=== PATIENT | female | born 1995 | race Caucasian/White ===

== ENCOUNTER 2024-10-03 08:06 | Observation (INO) | payer OTHER, SELFPAY ==
--- NOTE | ~2024-10-03 | US_ITS ---
EXAM EXAMINATION: US OB limited DATE: 10/03/2024 11:58 CDT INDICATION: Cervical length, contractions. 4 para 2. Estimated date of delivery as pe r patient: 11/24/2024 yielding an approximate gestational age of 32 weeks and 4 days. COMPARISON: None TECHNIQUE: Real-time transabdominal obstetric ultrasound. FINDINGS: There is a single intrauterine gestation in vertex presentation. The placenta is anterior, without previa. The cervix measurement ranges from 2.13 cm - 2.37cm in length on the submitted images. cardiac activity and movement is noted with a heart rate of 141 beats per minute. Deepest vertical pocket of amniotic fluid measures 6.05 cm IMPRESSION: Single intrauterine gestation in vertex presentation with cardiac activity identified. Short cervical length, as detailed above. Reviewed, dictated and finalized at location A. IMPRESSION: Single intrauterine gestation in vertex presentation with cardiac activit y identified. Short cervical length, as detailed above.
--- OUTSIDE RECORDS SUMMARY | 2024-10-03 08:18 | XMS_ITS | Clinical Summary ---
Author Organization [facility] Address [address] [place] [address] Care Team Providers Care Concrete Panel Installer Name Role Phone Maura Willis NP Primary Care Provider [phone] Allergies Active Allergy Reactions Criticality Noted Date Comments Promethazine Angioedema High 10/27/2021 Venom-Honey Bee Swelling Medium 04/11/2019 Medications vit [id number] villalta 27mg iron- 800 mcg-250 mg capsule Take by mouth Active FeroSuL 325 mg (65 mg iron) tablet Take 1 tablet (325 mg total) by mouth daily 2 Active benzocaine-ment hoL (DERMOPLAST) 20-0.5 % aerosolIndicati ons:Minor Skin Wound Pain Apply 1 application (1 spray total) topically as needed for other (perianal area for pain) 1 g 1 2 Active Additional Information Patient not taking.Reported on 07/15/2024 ibuprofen (ADVIL,MOTRIN) 600 mg tabletIndicatio ns:Cramps Take 1 tablet (600 mg total) by mouth every 6 (six) hours as needed for pain (pain) 30 tablet 1 2 Active albuterol HFA (PROVENTIL HFA,VENTOLIN HFA,PROAIR HFA) 90 mcg/actuation inhaler Inhale 2 puffs every 6 (six) hours as needed for wheezing 1 each 4 11/05/19 25 Active acetaminophen-c odeine (TYLENOL with CODEINE #3) 300-30 mg per tablet Take 1 tablet by mouth every 6 (six) hours as needed for pain 15 tablet 4 Active chlorhexidine (PERIDEX) 0.12 % solutionIndicat ions:Mouth Infection Prevention Apply 15 mL to the mouth or throat 2 (two) times a day 120 mL 4 Active Active Problems Problem Noted Date Diagnosed Date Atypical chest pain 12/04/2023 Assessment & Plan (12/04/2023 3:26 PM CDT): Cardiac stress test and Holter monitor did not reveal any causative factors. She is being referred to Dr. Gallego, cooperative manager, for more extensive evaluation Palpitations 11/05/2023 Assessment & Plan (12/04/2023 3:23 PM CDT): Holter monitor detected some irregular heartbeats but were less than 1% of the heartbeats in 48 hours. Assessment & Plan (11/05/2023 3:54 PM CDT): Had EKG done in the ER on 11/02/2023 that indicated an incomplete right bundle branch block. We will order a 48 hour Holter monitor and a cardiac stress test. Pneumonia 11/05/2023 Assessment & Plan (11/05/2023 3:55 PM CDT): Complete azithromycin and start Augmentin today. Prednisone taper as discussed. Discussed use of albuterol HFA for p.r.n. shortness of breath. Increase fluids. Can take Tylenol or ibuprofen p.r.n. Shortness of breath 11/05/2023 Assessment & Plan (12/04/2023 3:24 PM CDT): This seems to be more from physical deconditioning than cardiac or respiratory in nature Assessment & Plan (11/05/2023 3:56 PM CDT): Prescribed albuterol HFA for p.r.n. use. She reports this prior to being diagnosed with pneumonia. It may be related to asthma. Low body weight due to inadequate caloric intake 11/05/2023 Assessment & Plan (12/04/2023 3:25 PM CDT): Patient states that she has been trying to increase her intake. Her weight has gone from 68 lb on 11/05/2023 277 lb today Assessment & Plan (11/05/2023 4:04 PM CDT): Patient reports she only consumes about 500 calories a day. She denies any anorexia, she has an adequate appetite, states she just does not like to eat. Nicotine dependence with current use 11/05/2023 Assessment & Plan (12/04/2023 3:25 PM CDT): Counseled on smoking cessation. Patient has cut back considerably and does not want to totally quit at present. We will discuss at next office visit Assessment & Plan (11/05/2023 4:01 PM CDT): Counseled on smoking cessation. She is considering quitting but prefers to do it cold turkey. Spontaneous 03/05/2021 Assessment & Plan (03/05/2021 3:48 PM CDT): Desired , patient reports passage of products of conception Will continue to monitor, discussed with patient that continues portions for relatively,; however given significant weight loss and long duration since last will begin testing FSH and LH, consider referral to Endocrinology for other evaluations of unexplained weight loss Primary insomnia 03/05/2021 Assessment & Plan (03/05/2021 3:49 PM CDT): Patient reports difficulty with staying and falling asleep Will start amitriptyline to mg nightly given patient's low body mass Will continue to evaluate for other causes of insomnia History of Helicobacter pylori infection 021 Overview (12/11/2020): Added automatically from request for surgery [id number] Family history of ischemic h eart disease and other diseases of the circulatory system 11/09/2019 Assessment & Plan (12/04/2023 3:24 PM CDT): This is a consideration with referral to Cardiology for further evaluation Assessment & Plan (11/05/2023 3:55 PM CDT): Have ordered a 48 hour Holter monitor and cardiac stress test. Asthma 11/09/2019 Weight loss 08/03/2010 Overview (08/08/2020): She reports that her peak weight was 85 pounds and this was about 2 years ago. Since that time she lost weight and had vomiting and was diagnosed with H. Pylori. Despite treatment, she reports that her stomach was still irritated and that she was down to 78 pounds for 8 months. Her lowest weight ever was 65 pounds. Plan: Continue weight gain. Continue to monitor. Assessment & Plan (06/26/2021 5:17 PM DIRECTOR TRANSLATION): Not well controlled, patient continues to have difficulty maintaining a gaining weight maternal family has multiple autoimmune disease, mother also has low weight Patient feels generalized muscle weakness as well as people muscles No significant changes in appetite, but has severe acid reflux Will check multiple labs today to look for possible autoimmune are myositis Assessment & Plan (03/05/2021 3:49 PM CDT): Patient weight has been steady at approximately 73 lb for last several months; EGD reviewed, no evidence of H pylori in order malabsorption based on small bowel biopsy Will start testing potential endocrine causes of weight loss or poor weight gain Assessment & Plan (12/11/2020 2:36 PM CDT): Unable to regain weight. [facility]ori at [address] [place] [address] Recently cbc,cmp[,TSH, TTG, stool studiea all neg. No D or clinical/lab indicatoion. Will egd Estimated Date of Delivery Comme nts Yes 11/28/2024 Date entered silke or to episode creation Encounters Date Type Department Care Team Description 08/31/2024 Telephone [facility] [place] [address] [facility] [address] [place] [phone] Liza Barger 08/30/2024 7:05 AM DIRECTOR TRANSLATION - 08/30/2024 9:49 AM DIRECTOR TRANSLATION Emergency [facility] Emergency Department [address] [place] [address] Oli Luo MD Shortness of breath (Primary Dx) Discharge Disposition: Discharge to home or self care 08/30/2024 4:20 AM DIRECTOR TRANSLATION - 08/30/2024 6:51 AM DIRECTOR TRANSLATION Hospital Encounter [address] [address] Arlette Rojas MD Discharge Disposition: Discharge to home or self care 08/30/2024 4:00 AM DIRECTOR TRANSLATION - 08/30/2024 11:59 PM DIRECTOR TRANSLATION Hospital Encounter [facility] Emergency, Room R Discharge Disposition: Discharge to home or self care 08/23/2024 11:29 PM DIRECTOR TRANSLATION - 08/24/2024 3:32 AM DIRECTOR TRANSLATION Hospital Encounter [address] [address] Arlette Rojas MD Discharge Disposition: Discharge to home or self care 08/02/2024 Telephone [facility] Accountable Care Organization [address] [place] [address] Georgia Aguiar MA Unsuccessful Phone Call 1 (AWV SCHEDULING) 07/26/2024 Telephone [facility] Primary Care at [address] [place] [phone] Maura Willis NP Medical Question/Miscellaneo us (Prior auth hospital test) 07/15/2024 12:15 PM DIRECTOR TRANSLATION Office Visit [facility] at [place] [address] [place] [address] Abbi Guerrero NP Dental infection (Primary Dx) 07/13/2024 Telephone [facility] [place] [address] [place] [address] Maria Fernanda Hameed MA 07/13/2024 Telephone [facility] [place] [address] [place] [address] Azucena Rivera MA 07/09/2024 7:53 PM DIRECTOR TRANSLATION - 07/09/2024 11:59 PM DIRECTOR TRANSLATION [place] [address] Vaginal discharge Discharge Disposition: Discharge to home or self care 07/09/2024 7:45 PM DIRECTOR TRANSLATION Office Visit [facility] [place] [address] [place] [address] Janneth Freire, KAMI Vaginal discharge (Primary Dx); Acute vaginitis from Last 3 Months Immunizations Immunization Administration Dates Next Due DTP 1993 DTP / HiB 03/27/1994,1993 DTaP 02/21/1999 HPV, Quadrivalent 08/08/2009 Hep A, Ped Unspecified 08/08/2009 Hep B, Adolescent or Pediatric 03/27/1994,1993,1993 HiB 1993 Influenza, Quadrivalent, Spl it, Preservative Free, Intramuscular 04/13/2021 Influenza, Unspecified 04/14/2023(Deferr ed: Patient Refused),03/05/2021(Deferred: Patient Refused),03/05/2021(Deferred: Patient Refused),07/07/2020(Deferred: Patient Refused),07/07/2020(Deferred: Patient Refused),07/07/2019(Deferred: Patient Refused),07/07/2019(Deferred: Patient Refused),07/07/2019(Deferred: Patient Refused),07/07/2019(Deferred: Patient Refused) MMR 11/26/2021(Deferred: Other - mom immune),02/21/1999,01/01/1996 Meningococcal C Conjugate 08/08/2009 OPV 02/21/1999, 4,1993,10/04 Tdap 10/16/2022,08/08/2009 Varicella 04/13/1999 Surgical History Surgery Date Site/Laterality Comments UPPER GASTROINTESTINAL ENDOSCOPY 07/07/2011 - 07/06/2012 H. Pylori Medical History Medical History Date Comments H. 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 Pylori Sister 1 No Known Problems Sister 2 Relation Name Status Comments Father Alive Maternal Grandmother Alive Mother Alive Sister 1 Alive Sister 2 Alive Social History Tobacco Use Types Packs/Day Years Used Date Smoking Tobacco: Every Day Cigarettes 0.5 11 Smokeless Tobacco: Never Tobacco Cessation:Ready to Q uit: Not Asked; Counseling Given: Not Answered Alcohol Use Standard Drinks/Week Comments Not Currently 0 (1 standard drink = 0.6 oz pur e alcohol) Social Connection and Isolat ion Panel [NHANES] Answer Date Recorded In a typical week, how many times do you talk on the phone with family, friends, or neighbors? More than three times a week 08/30/2024 How often do you get togethe r with friends or relatives? More than three times a week 08/30/2024 How often do you attend [facility] or sabianist services? More than 4 times per year 08/30/2024 Do you belong to any clubs o r organizations such as adventist groups, unions, fraternal or athletic groups, or school groups? No 08/30/2024 How often do you attend meet ings of the clubs or organizations you belong to? Never 08/30/2024 Are you , , di vorced, , never , or living with a partner? Living with partner 08/30/2024 AUDIT-C Answer Date Recorded Q1: How often do you have a drink containing alcohol? Never 08/30/2024 Q2: How many drinks containi ng alcohol do you have on a typical day when you are drinking? Patient does not drink Q3: How often do you have si x or more drinks on one occasion? Never 08/30/2024 Overall Financial Resource Strain (CARDIA) Answe r Date Recorded How hard is it for you to pa y for the very basics like food, housing, medical care, and heating? Somewhat hard 08/30/2024 PHQ-2 Answer Date Recorded PHQ-2 Total Score (If total score is 3 or more points, staff should administer the PHQ-9) 0 08/30/2024 [facility] - Occupational Stress Questionnaire Answer Date Recorded Do you feel stress - tense, restless, nervous, or anxious, or unable to sleep at night because your mind is troubled all the time - these days? Only a little 08/30/2024 Exercise Vital Sign Answer Date Recorde d On average, how many days pe r week do you engage in moderate to strenuous exercise (like a brisk walk)? 6 days 08/30/2024 On average, how many minutes do you engage in exercise at this level? 60 min 08/30/2024 Hunger Vital Sign Answer Date Recorded Within the past 12 months, y ou worried that your food would run out before you got the money to buy more. Sometimes true Within the past 12 months, t he food you bought just didn't last and you didn't have money to get more. Never true PRAPARE - Transportation Answer Date Re corded In the past 12 months, has l ack of transportation kept you from medical appointments or from getting medications? No 08/08 In the past 12 months, has l ack of transportation kept you from meetings, work, or from getting things needed for daily living? No 08/30/2024 Housing Stability Vital Sign Answer Keven e Recorded In the last 12 months, was t here a time when you were not able to pay the mortgage or rent on time? No 08/30/2024 In the past 12 months, how m any times have you moved where you were living? 0 08/30/2024 At any time in the past 12 m [facility], were you homeless or living in a intermediate (including now)? No 08/30/2024 Personal Safety Answer Date Recorded Have you ever been in or are you currently in a harmful physical or emotional relationship or is someone making you feel afraid or unsafe? Denies 08/30/2024 Estimated Date of Delivery Comme nts Yes 11/28/2024 Date entered silke or to episode creation Sex and Gender Information Value Date Recorded Sex Assigned at Not on file Legal Sex Female 7:49 PM DIRECTOR TRANSLATION Gender Identity Not on file Sexual Orientation Not on file Obstetrics History Para Term AB IAB SAB Ectopic Multiple Livin g Live Births 4 2 2 0 1 0 1 0 0 2 2 Date Outcome GA Total Labor Labor/2nd/3rd Weight Sex Type Anes PTL Nena A1 A5 Name Clin SAB 2012 Term 2.353 kg (5 lb 3 oz) F Vag-S pont Epidur al Y Livin g Complications:None Delivery [facility] 2021 Term 38w 4d 2h 43m 2h 09m/0h 24m/0h 10m 2.383 kg (5 lb 4.1 oz) F Vag-S pont Epidur al N Livin g 9 9 YON,G Heydi Coffman MD Complications:None Delivery [facility] ([facility]) Current Summary Episode Dates Number of Fetuses Estimated Date of Delivery 08/23/2024 - Present (10/03/2024) 11/28/2024 (based on Alternate CASE Entry) Dating Summary Based On CASE GA Diff Last Menstrual Period on 02/18/2024 (Exact Date) 11/24/2024 +4d Alternate CASE Entry 11/28/2024 Working Comment:Date entered prior t o episode creation Vitals Pregravid Weight Height TWG (As of 10/03/2024) Pregrav id BMI 152.4 cm (5') Date GA Fund Present FHR Mvmt BP Weight Edema Alb Glu Ket Dil/ Eff/Sta 5 26w2d Inpatient data not displayed here. See encounter summary. 5 27w1d Inpatient data not displayed here. See encounter summary. Last Filed Vital Signs Vital Sign Reading Time Taken Comments Blood Pressure 105/66 08/30/2024 9:00 AM DIRECTOR TRANSLATION Pulse 88 08/30/2024 9:00 AM DIRECTOR TRANSLATION Temperature 36.7 C (98 F) 08/30/2024 7:07 AM DIRECTOR TRANSLATION Respiratory Rate 14 08/30/2024 7:30 AM DIRECTOR TRANSLATION Oxygen Saturation 99% 08/30/2024 9:00 AM DIRECTOR TRANSLATION Inhaled Oxygen Concentration - - Weight 39.5 kg (87 lb) 08/30/2024 7:07 AM DIRECTOR TRANSLATION Height 152.4 cm (5') 08/30/2024 4:34 AM DIRECTOR TRANSLATION Body Mass Index 16.99 08/30/2024 4:34 AM DIRECTOR TRANSLATION Plan of Treatment Health Maintenance Due Date Last Done Comments Hepatitis C Screening 1993 Varicella Vaccines (2 of 2 - 2-dose childhood series) 07/06/1999 04/13/1999 HPV Vaccines (2 - 3-dose series) 09/05/2009 08/08/19 10 Regular Well Visit/Exam 18-64 2011 Pneumococcal vaccine <65 (1 of 2 - PCV) 2012 Cervical Cancer Screening 10/24/2021 10/24/2020 Influenza Vaccine (#1) 2024 04/13/2021 Depression Screening 08/24/2025 08/24/2024, 08/23/2024, 11/05/2023, Additional history exists DTaP/Tdap/Td Vaccine (7 - Td or Tdap) 10/16/2032 10/16/2022, 08/08/2009, 02/21/1999, Additional history exists Hepatitis B Screening Completed 03/27/1994 , 1993, 1993 Procedures Procedure Name Priority Date/Time Associated Diagnosis Comments XR CHEST 1 VIEW ED 08/30/2024 8:48 AM DIRECTOR TRANSLATION ECG 12-LEAD STAT 08/30/2024 7:28 AM DIRECTOR TRANSLATION EGFR STAT 08/30/2024 7:11 AM DIRECTOR TRANSLATION DIFFERENTIAL AUTO STAT 08/30/2024 7:1 1 AM DIRECTOR TRANSLATION TROPONIN T HIGH-SENSITIVITY SERIES (BASELINE, 2HR, 4HR, 6HR) STAT 08/30/2024 7:11 AM DIRECTOR TRANSLATION CBC WITH AUTO DIFFERENTIAL STAT 08/30/2024 7:11 AM DIRECTOR TRANSLATION COMPREHENSIVE METABOLIC PANEL STAT 08/30/2024 7:11 AM DIRECTOR TRANSLATION INFLUENZA A/B, RSV, AND COVID-19 PCR Routine 08/30/2024 5:28 AM DIRECTOR TRANSLATION URINALYSIS AND REFLEX TO MICROSCOPIC AND CULTURE STAT 08/30/2024 5:28 AM DIRECTOR TRANSLATION ECG 12-LEAD Routine 08/24/2024 2:19 AM DIRECTOR TRANSLATION URINALYSIS AND REFLEX TO MICROSCOPIC AND CULTURE Routine 08/23/2024 11:54 PM DIRECTOR TRANSLATION POCT URINALYSIS DIPSTICK Routine 07/09/2024 8:08 PM DIRECTOR TRANSLATION Vaginal discharge VAGINITIS PANEL Routine 07/09/2024 7:53 PM DIRECTOR TRANSLATION Vaginal discharge URINE CULTURE Routine 07/09/2024 7:53 PM DIRECTOR TRANSLATION Vaginal discharge GENITAL FLUID PAP SMEAR, THIN PREP AND HPV Routine 10/24/2020 from Last 3 Months or Most Recently Relevant to Health Maintenance Results * XR Chest 1 Vw Portable (08/30/2024 8:48 AM DIRECTOR TRANSLATION) Anatomical Region Laterality Modality Body, Chest N/A Computed Radiogr aphy 08/30/2024 8:50 AM DIRECTOR TRANSLATION Narrative 08/30/2024 8:50 AM DIRECTOR TRANSLATION EXAM DESCRIPTION: XR CHEST 1 VIEW REASON FOR STUDY: cough Complains of Chest pain and SOB. Placed on monitors. FHR baseline 140 with mod variability, accel 155. Occasionally contraction noted. Po hydration given. Dr elliott notified. Orders received to discharge pt and send to ER. Pt is currently 26 weeks . Pt was shielded during chest xray TECHNIQUE: Single radiographic view(s) of the chest. COMPARISON: Radiograph dated January 22, 2024 FINDINGS: LUNGS: No focal opacity, pleural effusion, or pneumothorax. HEART/MEDIASTINUM: Cardiac silhouette normal in size. Mediastinal and hilar contours appear normal. LINES/TUBES: None. BONES: No acute osseous abnormality. IMPRESSION: No acute cardiopulmonary abnormality. THIS IS AN ELECTRONICALLY VERIFIED FINAL REPORT 08/30/2024 8:50 AM - Electronically signed by Dakota Boyd M.D. JA: SOCORRO Report ID: [id number] Reading Location: [id number] Procedure Note Dakota Boyd MD - 08/30/2024 EXAM DESCRIPTION: XR CHEST 1 VIEW REASON FOR STUDY: cough Complains of Chest pain and SOB. Placed on monitors. FHR baseline 140 withmod variability, accel 155. Occasionally contraction noted. Po hydrationgiven. Dr elliott notified. Orders received to discharge pt and send to ER. Pt is currently 26 weeks . Pt was shielded during chest xray TECHNIQUE: Single radiographic view(s) of the chest. COMPARISON: Radiograph dated January 22, 2024 FINDINGS: LUNGS: No focal opacity, pleural effusion, or pneumothorax. HEART/MEDIASTINUM: Cardiac silhouette normal in size. Mediastinal andhilar contours appear normal. LINES/TUBES: None. BONES: No acute osseous abnormality. IMPRESSION: No acute cardiopulmonary abnormality. THIS IS AN ELECTRONICALLY VERIFIED FINAL REPORT 08/30/2024 8:50 AM - Electronically signed by Dakota Boyd M.D. JA: SOCORRO Report ID: [id number] Reading Location: [id number] Oli Luo MD IMG XR PROCEDURES Final Result * ECG 12 lead (08/30/2024 7:28 AM DIRECTOR TRANSLATION) 08/30/2024 7:28 AM DIRECTOR TRANSLATION Narrative [facility] - 08/30/2024 8:47 AM DIRECTOR TRANSLATION Vent Rate: 84 bpm RR Interval: 711 msec MO Interval: 104 msec QRS Duration: 77 msec QT Interval: 377 msec QTC Interval: 418 msec P-R-T Freedom: 40 - 66 - 45 degrees IMPRESSION: SINUS RHYTHM WITH SHORT MO INTERVAL BORDERLINE ECG Compared to prior EKG heart rate decreased Electronically Signed By: Cisco Mckeon MD [facility] Oli Luo MD ECG ORDERABLES Final Result [facility] * Troponin T high-sensitivity series (baseline, 2hr, 4hr, 6hr) (08/30/2024 7:11 AM DIRECTOR TRANSLATION) Trop T hs <6 <=14 ng/L Comment: Interpretive Data For further hscTnT resources including the diagnostic algorithm and an aid in interpretation, copy and paste this link: https://nrl.testcatalog.org/show/hsTrop Current Interpretive Data last revised 2020. Blood 08/30/2024 7:11 AM DIRECTOR TRANSLATION 08/30/2024 7:19 AM DIRECTOR TRANSLATION Oli Luo MD LAB BLOOD ORDERABLES Final Res ult [facility] [address] [facility] [address] [place], [place] [id number] * eGFR (08/30/2024 7:11 AM DIRECTOR TRANSLATION) Pathologist [facility] eGFR >90 >=60 mL/min/1. 73 m2 Comment: Interpretive Data Reference Interval Normal >/= 90 mL/min/1.73m2 Mildly decreased* 60 - 89 mL/min/1.73m2 Mildly to moderately decreased 45 - 59 mL/min/1.73m2 Moderately to severely decreased 30 - 44 mL/min/1.73m2 Severely decreased 15 - 29 mL/min/1.73m2 Kidney Failure < 15 mL/min/1.73m2 *Relative to young adult level Estimated glomerular filtration rate is determined by the 2020 CKD-EPI equation recommended by the National Kidney Foundation (A Unifying Approach to GFR Estimation: Recommendations of the NKF-ASK Task Force on Reassessing the Inclusion of Race in Diagnosing Kidney Disease, JASN 2020). The CKD-EPI equation should not be used for patients with unstable renal function and has not been validated in children and those over 70. Current interpretive data was last reviewed 2021. Blood 08/30/2024 7:11 AM DIRECTOR TRANSLATION 08/30/2024 7:19 AM DIRECTOR TRANSLATION Oli Luo MD LAB BLOOD ORDERABLES Final Res ult [facility] [address] [facility] [address] [place] [address] * (ABNORMAL) Differential, auto (08/30/2024 7:11 AM DIRECTOR TRANSLATION) Neutrophil abs 8.9(H) 1.5 - 6.5 K/cumm Imm gran abs 0.3(H) 0.0 - 0.1 K/cumm [facility] ([place]) Lymphocyte abs 2.1 0.8 - 3.3 K/cumm [facility] ([place]) Monocyte abs 0.8 0.2 - 0.8 K/cumm [facility] ([place]) Eosinophil abs 0.1 0.0 - 0.5 K/cumm [facility] ([place]) Basophil abs 0.1 0.0 - 0.1 K/cumm [facility] ([place]) Neutrophil pct 72.5 % [facility] ([place]) Comment: Interpretive Data Percent cell count reference ranges are not reported, since discordance with absolute values may lead to misinterpretation of CBC data. Current Interpretive Data was last revised on 2017. Imm gran pct 2.2 % [facility] ([place]) Comment: Interpretive Data Percent cell count reference ranges are not reported, since discordance with absolute values may lead to misinterpretation of CBC data. Current Interpretive Data was last revised on 2017. Lymphocyte pct 17.4 % [facility] ([place] Comment: Interpretive Data Percent cell count reference ranges are not reported, since discordance with absolute values may lead to misinterpretation of CBC data. Current Interpretive Data was last revised on 2017. Monocyte pct 6.8 % [facility] ([place]) Comment: Interpretive Data Percent cell count reference ranges are not reported, since discordance with absolute values may lead to misinterpretation of CBC data. Current Interpretive Data was last revised on 2017. Eosinophil pct 0.7 % [facility] ([place]) Comment: Interpretive Data Percent cell count reference ranges are not reported, since discordance with absolute values may lead to misinterpretation of CBC data. Current Interpretive Data was last revised on 2017. Basophil pct 0.4 % [facility] ([place]) Comment: Interpretive Data Percent cell count reference ranges are not reported, since discordance with absolute values may lead to misinterpretation of CBC data. Current Interpretive Data was last revised on 2017. Blood 08/30/2024 7:11 AM DIRECTOR TRANSLATION 08/30/2024 7:19 AM DIRECTOR TRANSLATION Oli Luo MD LAB BLOOD ORDERABLES Final Res ult [facility] ([place]) 1 [facility] [address] [place] [address] * (ABNORMAL) CBC with auto differential (08/30/2024 7:11 AM DIRECTOR TRANSLATION) WBC 12.2(H) 3.8 - 9.9 K/cumm Hgb 9.7(L) 11.9 - 15.5 g/dL [facility] ([place]) Hct 28.4(L) 35.6 - 45.5 % [facility] ([place]) Plt 242 150 - 400 K/cumm [facility] ([place]) MPV 9.7 9.1 - 12.3 fL [facility] ([place]) RBC 2.97(L) 3.90 - 5.20 M/cumm [facility] ([place]) MCV 95.6 81.3 - 96.4 fL [facility] ([place]) MCH 32.7 27.1 - 33.3 pg [facility] ([place]) MCHC 34.2 32.3 - 35.7 g/dL [facility] ([place]) RDW CV 14.1 11.1 - 14.9 % [facility] ([place]) RDW SD 49.1(H) 35.7 - 48.1 fL [facility] ([place]) NRBC abs 0.00 0.00 - 0.01 K/cumm [facility] ([place]) Blood 08/30/2024 7:11 AM DIRECTOR TRANSLATION 08/30/2024 7:19 AM DIRECTOR TRANSLATION Oli Luo MD LAB BLOOD ORDERABLES Final Res ult Performing Organization Address City/[facility]/ZIP Co de Phone Number [facility] ([place]) 1 [facility] [place] [address] * (ABNORMAL) Comprehensive metabolic panel (08/30/2024 7:11 AM DIRECTOR TRANSLATION) Sodium 135 135 - 145 mmol/L Potassium, pl 3.1(L) 3.3 - 4.9 mmol/L [facility] ([place]) Chloride 103 97 - 110 mmol/L [facility] ([place]) CO2 22 22 - 32 mmol/L [facility] ([place]) Anion gap 10 2 - 15 mmol/L [facility] ([place]) BUN 5(L) 6 - 25 mg/dL [facility] ([place]) Creatinine 0.51(L) 0.60 - 1.10 mg/dL [facility] ([place]) Glucose 97 70 - 199 mg/dL [facility] ([place]) Comment: Interpretive Data Fasting glucose >/= 126 mg/dl is diagnostic for diabetes. Fasting is defined as no caloric intake for at least 8 hours. Fasting glucose between 100 mg/dl to 125 mg/dl is diagnostic of prediabetes. In a patient with classic symptoms of hyperglycemia or hyperglycemic crisis, a random glucose >/= 200 mg/dl is diagnostic for diabetes. In the absence of unequivocal hyperglycemia, results should be confirmed by repeat testing. The classification and Diagnosis of Diabetes Diabetes Care 2021; 46: S19-S40. Current interpretive data was last revised 2022. Calcium 7.9(L) 8.5 - 10.3 mg/dL [facility] ([place]) Bilirubin, total 0.2 0.1 - 1.2 mg/dL [facility] ([place]) Protein, pl 5.9(L) 6.5 - 8.5 g/dL [facility] ([place]) Albumin 2.9(L) 3.5 - 5.0 g/dL [facility] ([place]) Alk phos 125 40 - 130 Units/L [facility] ([place]) ALT 6(L) 7 - 45 Units/L [facility] ([place]) AST 16 10 - 45 Units/L [facility] ([place]) Blood 08/30/2024 7:11 AM DIRECTOR TRANSLATION 08/30/2024 7:19 AM DIRECTOR TRANSLATION Oli Luo MD LAB BLOOD ORDERABLES Final Res ult Performing Organization Address [facility]/ZIP Co de Phone Number [facility] ([place]) 1 [facility] Department [place] [address] * Influenza A/B, RSV, and COVID-19 PCR Nasopharyngeal (08/30/2024 5:28 AM DIRECTOR TRANSLATION) COVID-19 RNA Negative Negative Influenza A RNA Negative Negative [facility] ([place]) Influenza B RNA Negative Negative [facility] ([place]) RSV RNA Negative Negative [facility] ([place]PUBL[place]) Comment: Interpretive data: Testing performed by [facility]. This test is performed using the [employer] Xpert Xpress CoV-2/Flu/RSV plus assay. This is a multiplex, real- time reverse transcriptase PCR assay intended for the qualitative detection of nucleic acid from SARS-CoV-2, influenza A, influenza B, and respiratory syncytial virus. This assay has been cleared by the [place] Food and Drug administration. The performance characteristics have been verified by the [facility]. Results must be considered in the clinical context, and a negative result does not rule out infection. Interpretive Data last revised 2023 Nasopharyngeal 08/30/2024 5: 28 AM DIRECTOR TRANSLATION 08/30/2024 5:35 AM DIRECTOR TRANSLATION Narrative [facility] ([place]PUBL[place]) - 08/30/2024 6:14 AM DIRECTOR TRANSLATION Is the Patient experiencing symptoms consistent with COVID?->Yes Ruperto Elliott MD LAB MICROBIOLOGY - GEN ERAL ORDERABLES Final Result Performing Organization Address [facility]/ZIP Co de Phone Number [place] ([place]) 1 [facility] Department [place] [address] * Urinalysis reflex to microscopic and culture Urine, clean voided (08/30/2024 5:28 AM DIRECTOR TRANSLATION) Color, ur Yellow Yellow Clarity, ur Clear Clear [place] ([place]) Specific gravity, ur 1.007 1.003 - 1.030 [facility] ([place]) pH, urine 7.0 [facility] ([place]) Comment: Interpretive Data U rine pH is affected by diet, medications, systemic acid-base disturbances, and renal tubular function. pH may affect urinary stone formation. For example, urine pH below 6.0 may help reduce the tendency for calcium phosphate stones and pH greater than 6.0 may reduce the tendency for uric acid stone formation. Source: [facility] Current Interpretive Data was last revised on 2017 Protein, ur ql Negative Negative [facility] ([place]) Glucose, ur ql Negative Negative [facility] ([place]) Ketones, ur Negative Negative [facility] ([place]) Bilirubin, ur Negative Negative [facility] ([place]) Blood, ur Negative Negative [facility] ([place]) Urobilinogen, ur <2.0 <2.0 mg/dL [facility] ([place]) Nitrite, ur Negative Negative [facility] ([place]) Leukocyte esterase, ur Negative Negative [facility] ([place]) UA reflex comment Reflex conditions for microscopic UA and culture not met. [facility] ([place]) Urine, clean voided 08/30/2024 5:28 AM DIRECTOR TRANSLATION 08/30/2024 5:35 AM DIRECTOR TRANSLATION us Ruperto Elliott MD LAB MICROBIOLOGY - GEN ERAL ORDERABLES Final Result [place] ([place]) 1 [facility] Department [place] [address] * ECG 12 lead (08/24/2024 2:19 AM DIRECTOR TRANSLATION) 08/24/2024 2:19 AM DIRECTOR TRANSLATION Narrative [facility] - 08/24/2024 6:58 AM DIRECTOR TRANSLATION Vent Rate: 131 bpm RR Interval: 457 msec MO Interval: 105 msec QRS Duration: 77 msec QT Interval: 312 msec QTC Interval: 389 msec P-R-T [place]: 14 - -5 - 23 degrees IMPRESSION: SINUS TACHYCARDIA WITH SHORT MO INTERVAL MODERATE ST DEPRESSION [0.05+ mV ST DEPRESSION] ABNORMAL ECG Compared to prior EKG, heart rate has increased ST segment depressions are more evident Electronically Signed By: Heladio Collins MD us Arlette Rojas MD ECG ORDERABLES Final Result [facility] * (ABNORMAL) Urinalysis reflex to microscopic and culture Urine, clean voided (08/23/2024 11:54 PM DIRECTOR TRANSLATION) Color, ur Yellow Yellow Clarity, ur Clear Clear [facility] ([place]) Specific gravity, ur 1.017 1.003 - 1.030 [facility] ([place]) pH, urine 6.5 [facility] ([place]) Comment: Interpretive Data U rine pH is affected by diet, medications, systemic acid-base disturbances, and renal tubular function. pH may affect urinary stone formation. For example, urine pH below 6.0 may help reduce the tendency for calcium phosphate stones and pH greater than 6.0 may reduce the tendency for uric acid stone formation. Source: [facility] by Party Current Interpretive Data was last revised on 2017 Protein, ur ql Trace Negative [facility] ([place]) Glucose, ur ql Negative Negative [facility] ([place]) Ketones, ur Negative Negative [facility] ([place]) Bilirubin, ur Negative Negative [facility] ([place]) Blood, ur Negative Negative [facility] ([place]) Urobilinogen, ur >=8.0(A) <2.0 mg/dL [facility] ([place]) Nitrite, ur Negative Negative [facility] ([place]) Leukocyte esterase, ur Negative Negative [facility] ([place]) UA reflex comment Reflex conditions for microscopic UA and culture not met. [facility] ([place]) Urine, clean voided 08/23/2024 11:54 PM DIRECTOR TRANSLATION 08/24/2024 12:08 AM DIRECTOR TRANSLATION us Arlette Rojas MD LAB MICROBIOLOGY - NERAL ORDERABLES Final Result [facility] ([place]) 1 [facility] Department [place] [address] * (ABNORMAL) POCT urinalysis dipstick (07/09/2024 8:08 PM DIRECTOR TRANSLATION) Color, Urine, POC Yellow Clarity, ur, POC Clear Clear Glucose, ur, POC Negative Negative MG/DL Bilirubin, ur, POC Negative Negative, Small, Moderate, Large Ketones, ur, POC Negative Negative Specific [place], POC 1.010 1.003 - 1.030 Blood, ur, POC Trace(A) Negative pH, ur, POC 5.5 5.0 - 8.0 Protein, ur, POC Negative Negative Urobilinogen, urine, POC 0.2 0.2 - 1.0 mg/dL Nitrite, ur, POC Negative Negative Leukocytes, ur, POC Trace(A) Negative Lot Number [id number] Urine 07/09/2024 8:08 PM DIRECTOR TRANSLATION Janneth Freire NP POINT OF CARE TEST ORDERAB LES Final Result * Vaginitis panel Vaginal (07/09/2024 7:53 PM DIRECTOR TRANSLATION) Abbie DNA probe Not Detected Not Detected Comment:Testing performed by : [facility], [address] [place] [address]., [id number] Gardnerella DNA probe Not Detected Not Detected [place] Comment:Testing performed by : [facility], [address] [place] [address]., [id number] Trichomonas DNA probe Not Detected Not Detected [place] Comment: Interpretive Data Testing performed by [facility] via [employer] VPIII Microbial Identification Test, a DNA probe test for use in the detection and identification of Abbie species, Gardnerella vaginalis and Trichomonas vaginalis nucleic acid in vaginal fluid specimens from patients with symptoms of vaginitis/vaginosis. Negative results for these tests suggest the patient does not have candidiasis, bacterial vaginosis and/or trichomoniasis when consistent with clinical signs and symptoms. Current interpretive data was last revised on 2020. Testing performed by: [facility], [address] [place] [address]., [id number] Vaginal 07/09/2024 7:53 PM DIRECTOR TRANSLATION 07/09/2024 10:42 PM DIRECTOR TRANSLATION Janneth Freire NP LAB MICROBIOLOGY - GENERAL ORDERABLES Final Result [facility] [place] [address] Department [place] [address] * Urine culture Urine, clean voided (07/09/2024 7:53 PM DIRECTOR TRANSLATION) Report Final Report: No growth Comment:Testing performed by : [facility], [address] [place]., [address] Urine, clean voided 07/09/2024 7:53 PM DIRECTOR TRANSLATION 07/09/2024 11:56 PM DIRECTOR TRANSLATION Narrative [facility] - 07/11/2024 6:44 AM DIRECTOR TRANSLATION Testing performed by [facility] ([phone]) Janneth Freire NP LAB MICROBIOLOGY - GENERAL ORDERABLES Final Result Performing Organization Address City/[facility]/ZIP Co de Phone Number [place] [address] Department [place] [address] * Genital fluid pap smear, thin prep and HPV (10/24/2020) 10/24/2020 Historical Provider MD LAB CYTOLOGY ORDERABLES F inal Result from Last 3 Months or Most Recently Relevant to Health Maintenance Insurance [facility] Advance Directives For more information, please contact: [phone] * Full Code (Latest Code Status on File) Date Activated Date Inactivated Comments 11/25/2021 5:25 AM 11/26/2021 8:12 PM * Full Code Date Activated Date Inactivated Comments 11/25/2021 2:08 AM 11/25/2021 5:25 AM Full CPR in case of cardiopulmonary arrest * Full Code Date Activated Date Inactivated Comments 01/11/2021 9:28 AM 01/11/2021 4:28 PM * Full Code Date Activated Date Inactivated Comments 01/11/2021 9:28 AM 01/11/2021 9:28 AM 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
--- OUTSIDE RECORDS SUMMARY | 2024-10-03 08:18 | XMS_ITS | Clinical Summary ---
Author Organization [facility] [employer] Address [address] [place] [address] Care Team Providers Care Thread Tool Grinder Set Up Operator Name Role Phone LazaroJuan de andalanie Armenta APRN-CHIEF WHARFINGER Primary Care Provider + Taylor Dean DO Unavailable [phone] Source Comments [facility],non-owned Affiliates and Associated Physician Practices is amultiple site organization consisting of ambulatory clinics and hospital sitesin [place], [place], [place] and [place]. This disclosure is being madepursuant to the Care Everywhere program and may not contain all information available regarding this patient. Last updated 18.[facility] Allergies Active Allergy Reactions Criticality Noted Date Comments Bee Venom Swelling High 04/11/2019 Promethazine Angioedema High 10/27/2021 Medications * Be aware that medications may not be up to date on this document. Alwaysverify current medications with the patient. Medication Sig Dispensed Refills Start Date End Date Status Vit-DSS-Fe Fum-FA ( vitamin with iron) tabletIndications:Pr egnancy Take 1 (one) tablet by mouth once daily Reasons: Active albuterol HFA (Proventil; Ventolin; Proair) 108 (90 Base) MCG/ACT inhaler Inhale 2 (two) puffs by mouth every 6 hours as needed 11/05/2023 11/04/2024 Active Active Problems Problem Noted Date Diagnosed Date High-risk in second trimester 07/15/19 25 Low weight gain during in second trime ster 07/15/2024 Cardiac condition affecting , antepartum (HCC): RBBB 07/15/2024 Family historic risk of dom enital abnormality: previous child club foot 07/15/2024 Benign gestational thrombocytopenia in second tr imester 07/15/2024 19 weeks gestation of 07/15/2024 Vomiting 09/19/2011 Gastritis 08/28/2010 Abdominal pain, generalized 08/03/2010 Overview (09/17/2011): Pt with hx of chronic abdominal pain, seen by Adolescent for initial evaluation 08-28-11. Has been screened by GI for chronic abdominal pain along with scoped. Abdominal pain is burning in nature and constant but most prevalent in the morning accompanied by vomiting. On Aciphex. Discussed emotional component to illness but pt denies. Plan: Thus far, all workup has been negative which include crp, hgba1c, tsh, free t4, jaspal, RA, and hcg. Will screen per Dr. Cruz's recommendations for Sjogren's disease, remaining labs needed, SS-A and SS-B and esr. Ordered today. Pt to FU with dentist. Pt to FU with heel top lift splitter to discuss other control measures. Stop Soda. Use ER when ill with perfuse vomiting and inability to take in solids and liquids. Go to GI appt as scheduled this week. Weight loss 08/03/2010 Overview (09/17/2011): She reports that her peak weight was [...] Plan: Continue weight gain. Continue to monitor. H. pylori infection: at age 15 Estimated Date of Delivery Comme nts Yes 11/24/2024 Based on last me nstrual period of 02/18/2024 Encounters Date Type Department Care Team Description 09/06/2024 12:32 PM DIAGNOSTICS SALES DEVELOPER - 09/06/2024 11:59 PM DIAGNOSTICS SALES DEVELOPER Hospital Encounter [facility] [address] [place] [address] Avenue, [address] [place] [address] Taylor Dean, DO Discharge Disposition: Home or Self Care 08/31/2024 2:10 PM DIAGNOSTICS SALES DEVELOPER - 08/31/2024 11:59 PM DIAGNOSTICS SALES DEVELOPER Hospital Encounter [facility] [address] [place] [address] Taylor Dean, DO Discharge Disposition: Home or Self Care 08/31/2024 12:30 PM DIAGNOSTICS SALES DEVELOPER Office Visit [facility] [address] [place] [address] [address] [place] [address] Soni Sharma MD White, Stephanie M, DO RBBB (Primary Dx); Palpitations; Cardiac arrhythmia, unspecified cardiac arrhythmia type; 20 weeks gestation of 08/31/2024 9:00 AM DIAGNOSTICS SALES DEVELOPER Procedure visit [facility] [address] [place] [address] [address] [place] [address] Taylor Dean, DO Palpitations 08/31/2024 Orders Only [facility] [address] [place] [id number] Yahaira Sanchez RN 08/10/2024 10:25 AM DIAGNOSTICS SALES DEVELOPER - 08/10/2024 11:59 PM DIAGNOSTICS SALES DEVELOPER Hospital Encounter [facility] [address] [place] [id number] Luan Zapata MD Discharge Disposition: Home or Self Care 07/26/2024 Orders Only [facility] [address] [place] [address] Yahaira Sanchez RN 07/13/2024 8:52 AM DIAGNOSTICS SALES DEVELOPER - 07/13/2024 11:59 PM DIAGNOSTICS SALES DEVELOPER Hospital Encounter [facility] [address] [place] [id number] Soni Sharma MD Discharge Disposition: Home or Self Care 07/13/2024 8:52 AM DIAGNOSTICS SALES DEVELOPER - 07/13/2024 11:59 PM DIAGNOSTICS SALES DEVELOPER Hospital Encounter [facility] [place] [address] Soni Sharma MD Discharge Disposition: Home or Self Care from Last 3 Months Family History Medical History Relation Name Comments CAD (Coronary Artery Disease) Father On disability Hypercholesterolemia Father Anesthesia Reaction Neg Hx Relation Name Status Comments Father Social History Tobacco Use Types Packs/Day Years Used Date Smoking Tobacco: Every Day Cigarettes 0.5 11.2 Started: 2013 Smokeless Tobacco: Never Tobacco Cessation:Ready to Q uit: Not Asked; Counseling Given: Not Answered Alcohol Use Standard Drinks/Week Comments Not Currently 0 (1 standard drink = 0.6 oz pur e alcohol) Estimated Date of Delivery Comme nts Yes 11/24/2024 Based on last me nstrual period of 02/18/2024 Sex and Gender Information Value Date Recorded Sex Assigned at Not on file Gender Identity Not on file Sexual Orientation Not on file Last Filed Vital Signs Vital Sign Reading Time Taken Comments Blood Pressure 102/50 09/06/2024 1:00 PM DIAGNOSTICS SALES DEVELOPER Pulse 101 08/31/2024 12:49 PM DIAGNOSTICS SALES DEVELOPER Temperature 37.1 C (98.7 F) 08/16/2011 2:43 PM DIAGNOSTICS SALES DEVELOPER Respiratory Rate 20 08/16/2011 3:30 PM DIAGNOSTICS SALES DEVELOPER Oxygen Saturation 98% 08/31/2024 12:49 PM DIAGNOSTICS SALES DEVELOPER Inhaled Oxygen Concentration - - Weight 39.9 kg (88 lb) 09/06/2024 1:00 PM DIAGNOSTICS SALES DEVELOPER Height 152.4 cm (5') 09/06/2024 1:00 PM DIAGNOSTICS SALES DEVELOPER Body Mass Index 17.19 09/06/2024 1:00 PM DIAGNOSTICS SALES DEVELOPER Plan of Treatment Upcoming Encounters Date Type Department Care Team (Late st Contact Info) Description 10/12/2024 12:30 PM CDT Office Visit [facility] [address] [place] [address] [address] [place], [place] [id number] Matty Franco, UBALDO-BETTY [address] [place] [address] [address] [place] [address] Health Maintenance Due Date Last Done Comments PAP SMEAR 1995 HIV SCREENING 2008 HEPATITIS C SCREENING 04/25/2011 DTAP/TDAP/TD VACCINES (1 - Tdap) 2012 HEPATITIS B VACCINE (1 of 3 - 19+ 3-dose series) 2012 PNEUMOCOCCAL VACCINE (1 of 2 - PCV) 2012 COVID-19 VACCINE (1 - 2023-2 5 season) 2024 INFLUENZA VACCINE (#1) 2024 04/13/2021 DEPRESSION SCREENING 07/07/2024 OB-ONE HOUR GLUCOSE 08/18/2024 OB-TDAP CURRENT 08/25/2024 OB-RHOGAM INJECTION 09/01/2024 ZOSTER VACCINE (1 of 2) 2043 HIB VACCINE Aged Out No longer eligi ble based on patient's age to complete this topic HPV VACCINE Aged Out No longer eligi ble based on patient's age to complete this topic MENINGOCOCCAL (Group B) VACC INE SHARED DECISION-MAKING Aged Out No longer eligibl e based on patient's age to complete this topic MENINGOCOCCAL GROUPS A/C/Y/W VACCINE Aged Out No longer eligible b ased on patient's age to complete this topic Respiratory Syncytial Virus (RSV) Vaccine Pt: or over 60 yrs (No Doses Required) Completed Procedures Procedure Name Priority Date/Time Associated Diagnosis Comments HOLTER MONITOR Routine 09/27/2024 10:16 PM CDT Palpitations ECHO COMPLETE Routine 09/06/2024 1:00 PM DIAGNOSTICS SALES DEVELOPER RBBB Palpitations TSH Routine 08/31/2024 2:35 PM DIAGNOSTICS SALES DEVELOPER Palpitations SONOGRAM - COMPLETE Routine 08/10/2024 10:25 AM DIAGNOSTICS SALES DEVELOPER Severely underweight adult Current every day smoker History of Helicobacter pylori infection Cardiac arrhythmia, unspecified cardiac arrhythmia type Marijuana smoker 17 weeks gestation of SONOGRAM - COMPLETE Routine 07/13/2024 9:37 AM DIAGNOSTICS SALES DEVELOPER Severely underweight adult Current every day smoker History of Helicobacter pylori infection Cardiac arrhythmia, unspecified cardiac arrhythmia type Marijuana smoker Fourth 20 weeks gestation of from Last 3 Months Results * MONITOR - HOLTER (09/27/2024 10:16 PM CDT) Narrative Mikey Weber MD - 09/27/2024 10:16 PM CDT Mikey Weber MD 09/27/2024 10:19 PM [facility] - [facility] - Holter Monitor Name: Amber Merlos : 1995 Primary Care Physician:Maura Willis APRN-CHIEF WHARFINGER Referring Physician: Taylor Dean DO Clinical Indication: palpitations. A 14 day holter was placed on August 31, 2024. Findings: 14 day holter demonstrates sinus rhythm with an average heart rate of 103 bpm, minimum HR of 70 bpm and maximum HR of 222 bpm. There were 11 patient recorded events demonstrating sinus rhythm/tachycardia between 91 and 142 bpm There was very rare supraventricular ectopy (0.05 % total burden), including 9 episodes of PSVT of up to 4 beat duration. There were very rare ventricular ectopic beats (< 0.01 % total burden). There were no recorded episodes of atrial fibrillation, heart block, pauses, or VT. Conclusions: 1. Average heart rate 103 bpm with heart rate range 72 to 122 bpm 2. Symptomatic episodes demonstrating sinus rhythms between 91-142 bpm 3. Very rare supraventricular ectopy including 9 episodes of PSVT of up to 4 beat duration 4. Very rare ventricular ectopy 5. No recorded episodes of atrial fibrillation, heart block, pauses, or VT Thank you. Please do not hesitate to call if there are any questions. Mikey Weber MD [facility] - Heart & Vascular Care Office Taylor Dean DO CARDIAC SERVICES OR DERABLES * ECHO COMPLETE (09/06/2024 1:00 PM DIAGNOSTICS SALES DEVELOPER) IVSd 2D 0.569 cm SSM CV FUJ I PACS LVIDd 4.259 cm SSM CV FUJ I PACS LVIDs 3.111 cm SSM CV FUJ I PACS LVOT diam 1.75 cm SSM CV FUJ I PACS LVPWd 0.608 cm SSM CV FUJ I PACS LV biplane EF 53.324 % SSM CV FUJI PACS LV A2C EF 58.428 % SSM CV FUJ I PACS LV A4C EF 54.113 % SSM CV FUJ I PACS LV EDV A2C 58.608 ml SSM CV FU JI PACS LV EDV A4C 45.579 ml SSM CV FU JI PACS LV ESV A2C 24.365 ml SSM CV FU JI PACS LV ESV A4C 20.915 ml SSM CV FU JI PACS LVOT pk grad 5.663 mmHg SSM CV FUJI PACS LVOT pk merlin 118.99 cm/s SSM CV F UJI PACS LVOT VTI 21.046 cm SSM CV FUJ I PACS LA size 2.925 cm SSM CV FUJ I PACS LA vol BP 36.998 ml SSM CV FUJ I PACS RA area 9.987 cm SSM CV FUJI PACS AV area pk merlin 1.64 cm SSM CV FUJI PACS AV area cont VTI 1.748 cm SSM CV FUJI PACS AV pk grad 12.178 mmHg SSM CV FU JI PACS AV mn grad 7.954 mmHg SSM CV FU JI PACS AV pk merlin 174.487 cm/s SSM CV [facility] I PACS AV VTI 28.955 cm SSM CV [facility] I PACS MV A pk merlin 52.426 cm/s SSM CV F UJI PACS MV E pk merlin 109.289 cm/s SSM CV F UJI PACS MV E' lateral merlin 25.875 cm/s SS M CV [facility] MV mn grad 2.247 mmHg SSM CV FU JI PACS MV VTI 18.651 cm SSM CV [facility] I PACS TAPSE 2.335 cm SSM CV [facility] I PACS Ascending aorta 2.481 cm [facility] IVC Diam Expiration 1.069 cm SSM CV FUJI PACS AV area index 1.353 cm /m SSM CV FUJI PACS LA vol index 0.029 l/m SSM CV FUJI PACS Dimensionless Index 0.727 unitless SSM CV FUJI PACS Myocardial strain charge 2 unitless SSM CV FUJI PACS Anatomical Region Laterality Modality Ultrasound 09/06/2024 12:5 9 PM DIAGNOSTICS SALES DEVELOPER Narrative 09/06/2024 4:56 PM DIAGNOSTICS SALES DEVELOPER Summary * The left ventricle is normal in size. * Left ventricular systolic function is normal with an estimated ejection fraction of 55-60% by visual estimate. * Left ventricular segmental wall motion is normal. * The left ventricular mass is normal. * The left ventricular diastolic function is normal. * The right ventricle is normal in size. * Right ventricular systolic function is normal. Patient Info Name: Amber Merlos Age: 29 years : 1995 Gender: Female Ht: 60 in Wt: 88 lb BSA: 1.29 m2 HR: 97 bpm BP: 102 / 50 mmHg Heart Rhythm: Tachycardia Exam Date: 09/06/2024 12:59 PM Patient Status: O/P Study Site: [facility] Primary Location: [facility] EStud Info Technical Quality: Good Exam Type: ECHO COMPLETE Indications I45.10 - RBBB R00.2 - Palpitations Procedure(s) * A complete 2D, color Doppler, spectral Doppler, and M-Mode transthoracic echocardiogram was performed. Staff Referring Physician: Taylor Dean Ordering Provider: Taylor Dean Attending Physician: Taylor Dean Child Care Education Coordinator: Yary Watson Left Ventricle The left ventricle is normal in size. Left ventricular systolic function is normal with an estimated ejection fraction of 55-60% by visual estimate. Left ventricular segmental wall motion is normal. The left ventricular mass is normal. The left ventricular diastolic function is normal. Right Ventricle The right ventricle is normal in size. Right ventricular systolic function is normal. Left Atrium The left atrium is normal in size with a left atrial volume index of 29 ml/m2 by BP MOD. Right Atrium The right atrium is normal in size. Atrial Septum Intact interatrial septum visualized by 2D and color Doppler imaging. Aortic Valve The aortic valve is trileaflet. There is no aortic valve stenosis. There is no aortic valve regurgitation. Pulmonic Valve The pulmonic valve is normal. There is mild pulmonic regurgitation. Mitral Valve The mitral valve is normal. There is no mitral valve stenosis. There is no mitral valve regurgitation. Tricuspid Valve The tricuspid valve is normal. There is no tricuspid valve regurgitation. Unable to assess pulmonary pressures due to a lack of tricuspid and pulmonic regurgitation. Inferior Vena Cava The inferior vena cava is normal in size (< 2.1 cm). There is > 50% collapse of the IVC upon inspiration with an estimated right atrial pressure of 3 mmHg. Pericardium/Pleural There is no pericardial effusion. Aorta The aortic root at the sinus of Valsalva is normal in size. The ascending aorta is normal in size. Measurements Left Ventricular Outflow Tract Name Value Normal LVOT 2D LVOT Diameter 1.8 cm LVOT Area 2.4 cm2 LVOT Doppler LVOT Peak Velocity 1.2 m/s LVOT Peak Gradient 6 mmHg LVOT Mean Velocity 93.73 cm/s LVOT Mean Gradient 4 mmHg LVOT VTI 21.0 cm LVOT VTI/AV VTI Ratio 0.7 LVOT Stroke Volume 51 ml LVOT Stroke Volume Index 39 ml/m2 35-58 LVOT CO 4.9 l/min LVOT CI 3.8 l/min/m2 Mitral Valve Name Value Normal MV Doppler MV Peak Gradient 4 mmHg MV Mean Gradient 2 mmHg MV DI (VTI) 0.89 MV PHT 36 ms MV Area (PHT) 6.04 cm2 4.00-5.00 MV Area (Cont Eq VTI) 2.71 cm2 MV Diastolic Function MV E Peak Velocity 1.1 m/sec MV A Peak Velocity 0.5 m/sec MV E/A 2.1 MV Decel Time (PW) 126 ms MV Annular TDI MV Septal e' Velocity 16 cm/s >=8 MV E/e' (Septal) 7 <=8 MV Lateral e' Velocity 26 cm/s >=10 MV E/e' (Lateral) 4 <=8 MV e' Average 21 cm/s MV E/e' (Average) 5 Tricuspid Valve Name Value Normal Estimated PAP/RSVP RA Pressure 3 mmHg <=5 TV Annular TDI TV Lateral Sophia s' Velocity 16 cm/s 10-19 Aorta Name Value Normal Ascending Aorta Ao Root Diameter (2D) 2.3 cm Ao Root Diam Index (2D) 1.8 cm/m2 Asc Ao Diameter 2.5 cm 1.9-3.5 Asc Ao Diameter Index 1.9 cm/m2 1.0-2.2 Venous Name Value Normal IVC/SVC IVC Diameter 1.1 cm <=2.1 Aortic Valve Name Value Normal AV Doppler AV Peak Velocity 1.74 m/s AV Peak Gradient 12 mmHg AV Mean Gradient 8 mmHg AV VTI 29 cm AV Area (Cont Eq VTI) 1.75 cm2 >=2.00 AV Area (Cont Eq Merlin) 1.64 cm2 AV DI (VTI) 0.73 AV DI (Merlin) 0.68 AV Regurgitation 2D LVOT Area 2.40 cm2 Ventricles Name Value Normal LV Dimensions 2D/MM IVS Diastolic Thickness (2D) 0.6 cm 0.6-0.9 LVID Diastole (2D) 4.3 cm 3.8-5.2 LVPW Diastolic Thickness (2D) 0.6 cm 0.6-0.9 LVID Systole (2D) 3.1 cm 2.2-3.5 LV Mass (2D Cubed) 70 g 67-162 LV Mass Index (2D Cubed) 54 g/m2 43-95 Relative Wall Thickness (2D) 0.29 <=0.42 LV Fractional Shortening/Ejection Fraction 2D/MM LV Fractional Shortening (2D) 27 % 27-45 LV EF (2D Teicholz) 53 % 54-74 LV Diastolic Volume (4C MOD) 46 ml LV EF (4C MOD) 54 % LV Diastolic Volume (2C MOD) 59 ml LV EF (2C MOD) 58 % LV Diastolic Volume (BP MOD) 52 ml 46-106 LV Diastolic Volume Index (BP MOD) 40 ml/m2 29-61 LV Systolic Volume (BP MOD) 24 ml 14-42 LV Systolic Volume Index (BP MOD) 19 ml/m2 8-24 LV EF (BP MOD) 53 % 54-74 LV Diastolic Length (4C) 7.3 cm LV Systolic Length (4C) 6.4 cm LV Stroke Volume (4C MOD) 25 ml RV Dimensions 2D/MM TAPSE 2.3 cm >=1.7 Atria Name Value Normal LA Dimensions LA Dimension (2D) 2.9 cm 2.7-3.8 LA Dimen Index (2D) 2.3 cm/m2 LA Volume (BP MOD) 37 ml LA Volume Index (BP MOD) 29 ml/m2 16-34 RA Dimensions RA Area (4C) 10 cm2 <=18 RA Area (4C) Index 8 cm2/m2 RA ESV (4C MOD) 21 ml 15-27 RA ESV Index (4C MOD) 16 ml/m2 16-34 Report Signatures Finalized by Taylor Dean on 09/06/2024 04:56 PM Procedure Note Taylor Dean, DO - 09/06/2024 Summary * The left ventricle is normal in size. * Left ventricular systolic function is normal with an estimatedejection fraction of 55-60% by visual estimate. * Left ventricular segmental wall motion is normal. * The left ventricular mass is normal. * The left ventricular diastolic function is normal. * The right ventricle is normal in size. * Right ventricular systolic function is normal. Patient Info Name: Amber Merlos Age: 29 years : 1995 Gender: Female Ht: 60 in Wt: 88 lb BSA: 1.29 m2 HR: 97 bpm BP: 102 / 50 mmHg Heart Rhythm: Tachycardia Exam Date: 09/06/2024 12:59 PM Patient Status: O/P Study Site: [facility] Primary Location: [facility] EStudy Info Technical Quality: Good Exam Type: ECHO COMPLETE Indications I45.10 - RBBB R00.2 - Palpitations Procedure(s) * A complete 2D, color Doppler, spectral Doppler, and M-Modetransthoracic echocardiogram was performed. Staff Referring Physician: Taylor Dean Ordering Provider: Taylor Dean Attending Physician: Taylor Dean Child Care Education Coordinator: Yary Watson Left Ventricle The left ventricle is normal in size. Left ventricular systolic functionis normal with an estimated ejection fraction of 55-60% by visual estimate.Left ventricular segmental wall motion is normal. The left ventricular massis normal. The left ventricular diastolic function is normal. Right Ventricle The right ventricle is normal in size. Right ventricular systolicfunction is normal. Left Atrium The left atrium is normal in size with a left atrial volume index of29 ml/m2 by BP MOD. Right Atrium The right atrium is normal in size. Atrial Septum Intact interatrial septum visualized by 2D and color Doppler imaging. Aortic Valve The aortic valve is trileaflet. There is no aortic valve stenosis. Thereis no aortic valve regurgitation. Pulmonic Valve The pulmonic valve is normal. There is mild pulmonic regurgitation. Mitral Valve The mitral valve is normal. There is no mitral valve stenosis. There isno mitral valve regurgitation. Tricuspid Valve The tricuspid valve is normal. There is no tricuspid valveregurgitation. Unable to assess pulmonary pressures due to a lack of tricuspid andpulmonic regurgitation. Inferior Vena Cava The inferior vena cava is normal in size (< 2.1 cm). There is > 50%collapse of the IVC upon inspiration with an estimated right atrial pressure of 3mmHg. Pericardium/Pleural There is no pericardial effusion. Aorta The aortic root at the sinus of Valsalva is normal in size. Theascending aorta is normal in size. Measurements Left Ventricular Outflow Tract Name Value Normal LVOT 2D LVOT Diameter 1.8 cm LVOT Area 2.4 cm2 LVOT Doppler LVOT Peak Velocity 1.2 m/s LVOT Peak Gradient 6 mmHg LVOT Mean Velocity 93.73 cm/s LVOT Mean Gradient 4 mmHg LVOT VTI 21.0 cm LVOT VTI/AV VTI Ratio 0.7 LVOT Stroke Volume 51 ml LVOT Stroke Volume Index 39 ml/m2 35-58 LVOT CO 4.9 l/min LVOT CI 3.8 l/min/m2 Mitral Valve Name Value Normal MV Doppler MV Peak Gradient 4 mmHg MV Mean Gradient 2 mmHg MV DI (VTI) 0.89 MV PHT 36 ms MV Area (PHT) 6.04 cm2 4.00-5.00 MV Area (Cont Eq VTI) 2.71 cm2 MV Diastolic Function MV E Peak Velocity 1.1 m/sec MV A Peak Velocity 0.5 m/sec MV E/A 2.1 MV Decel Time (PW) 126 ms MV Annular TDI MV Septal e' Velocity 16 cm/s >=8 MV E/e' (Septal) 7 <=8 MV Lateral e' Velocity 26 cm/s >=10 MV E/e' (Lateral) 4 <=8 MV e' Average 21 cm/s MV E/e' (Average) 5 Tricuspid Valve Name Value Normal Estimated PAP/RSVP RA Pressure 3 mmHg <=5 TV Annular TDI TV Lateral Sophia s' Velocity 16 cm/s 10-19 Aorta Name Value Normal Ascending Aorta Ao Root Diameter (2D) 2.3 cm Ao Root Diam Index (2D) 1.8 cm/m2 Asc Ao Diameter 2.5 cm 1.9-3.5 Asc Ao Diameter Index 1.9 cm/m2 1.0-2.2 Venous Name Value Normal IVC/SVC IVC Diameter 1.1 cm <=2.1 Aortic Valve Name Value Normal AV Doppler AV Peak Velocity 1.74 m/s AV Peak Gradient 12 mmHg AV Mean Gradient 8 mmHg AV VTI 29 cm AV Area (Cont Eq VTI) 1.75 cm2 >=2.00 AV Area (Cont Eq Merlin) 1.64 cm2 AV DI (VTI) 0.73 AV DI (Merlin) 0.68 AV Regurgitation 2D LVOT Area 2.40 cm2 Ventricles Name Value Normal LV Dimensions 2D/MM IVS Diastolic Thickness (2D) 0.6 cm 0.6-0.9 LVID Diastole (2D) 4.3 cm 3.8-5.2 LVPW Diastolic Thickness (2D) 0.6 cm 0.6-0.9 LVID Systole (2D) 3.1 cm 2.2-3.5 LV Mass (2D Cubed) 70 g 67-162 LV Mass Index (2D Cubed) 54 g/m2 43-95 Relative Wall Thickness (2D) 0.29 <=0.42 LV Fractional Shortening/Ejection Fraction 2D/MM LV Fractional Shortening (2D) 27 % 27-45 LV EF (2D Teicholz) 53 % 54-74 LV Diastolic Volume (4C MOD) 46 ml LV EF (4C MOD) 54 % LV Diastolic Volume (2C MOD) 59 ml LV EF (2C MOD) 58 % LV Diastolic Volume (BP MOD) 52 ml 46-106 LV Diastolic Volume Index (BP MOD) 40 ml/m2 29-61 LV Systolic Volume (BP MOD) 24 ml 14-42 LV Systolic Volume Index (BP MOD) 19 ml/m2 8-24 LV EF (BP MOD) 53 % 54-74 LV Diastolic Length (4C) 7.3 cm LV Systolic Length (4C) 6.4 cm LV Stroke Volume (4C MOD) 25 ml RV Dimensions 2D/MM TAPSE 2.3 cm >=1.7 Atria Name Value Normal LA Dimensions LA Dimension (2D) 2.9 cm 2.7-3.8 LA Dimen Index (2D) 2.3 cm/m2 LA Volume (BP MOD) 37 ml LA Volume Index (BP MOD) 29 ml/m2 16-34 RA Dimensions RA Area (4C) 10 cm2 <=18 RA Area (4C) Index 8 cm2/m2 RA ESV (4C MOD) 21 ml 15-27 RA ESV Index (4C MOD) 16 ml/m2 16-34 Report Signatures Finalized by Taylor Dean on 09/06/2024 04:56 PM Taylor Dean DO ECHO CUPID * TSH (08/31/2024 2:35 PM DIAGNOSTICS SALES DEVELOPER) TSH 0.9813 0.35 - 4.94 uIU/mL 08/31/2024 3:32 PM DIAGNOSTICS SALES DEVELOPER [facility] Blood BLOOD SPECIMEN / Unknown Lab Venipuncture / Unknown 08/31/2024 2:35 PM DIAGNOSTICS SALES DEVELOPER 08/31/2024 2:45 PM DIAGNOSTICS SALES DEVELOPER Taylor Dye Dianne JONES LAB - CHEMISTRY ORD ERABLES [facility] [address] [place], [place] [id number] * SONOGRAM - COMPLETE (08/10/2024 10:25 AM DIAGNOSTICS SALES DEVELOPER) Only the most recent of2 resultswithin the time period is included. Linked Results Indication ======== Incomplete Anatomy Screen (Spine) Underweight BMI Maternal heart arrhythmia: right bundle branch block (RBBB) Marijuana and Tobacco Use H. Pylori age 15 History ====== OB History 4. Para 2 [id number] 1. live 2012. Gest. age 40 w + 0 d. Weight 2,353 g. Sex of child: female. Details: Vaginal delivery 2. miscarriage 2021 3. live 2021. Gest. age 38 w + 0 d. Weight 2,381 g. Sex of child: female. Details: Vaginal delivery; PP Hemorrhage; L Clubfoot Maternal Assessment Physical Exam Height 152 cm, 5 ft 0 in. Initial weight 33 kg, 72 lb. Initial BMI 14.06 kg/m Method ====== Transabdominal ultrasound. View: Good view ========= [place] . Number of fetuses: 1 Dating ====== Date Details Gest. age CASE LMP 02/18/2024 24 w + 6 d 11/24/2024 U/S 08/10/2024 based upon AC, BPD, Femur, HC 24 w + 2 d 11/28/2024 Assigned dating based on the LMP, selected on 07/13/2024 24 w + 6 d 11/24/2024 General Evaluation Cardiac activity present. FHR 145 bpm. Presentation: cephalic Placenta: Placental site: anterior Amniotic fluid: Amount of AF: normal. MVP 4.5 cm Biometry BPD 60.7 mm 24w 5d 36% Hadlock HC 220.9 mm 24w 1d 10% Hadlock AC 199.3 mm 24w 4d 32% Hadlock Femur 42.2 mm 23w 5d 10% Hadlock Humerus 39.3 mm 24w 0d 16% Maxine HC / AC 1.11 -/- Hadlock Weight Calculation: EFW 675 g 18% Hadlock EFW (lb,oz) 1 lb 8 oz EFW by Hadlock ([id number]) appropriate Growth Overview Exam date GA BPD (mm) HC (mm) AC (mm) FL (mm) HL (mm) EFW (g) 07/13/2024 20w 6d 45.5 11% 172.6 7% 163.5 62% 32.3 17% 30.8 23% 369 35% 08/10/2024 24w 6d 60.7 36% 220.9 10% 199.3 32% 42.2 10% 39.3 16% 675 18% Anatomy The following structures appear normal: Heart / Thorax 4-chamber view. Abdomen Stomach. Kidneys. Bladder. Spine Cervical spine. Thoracic spine. Lumbar spine. Sacral spine. The following structures were documented previously: Head / Neck Cranium. Lateral ventricles. Choroid plexus. Midline falx. Cavum septi pellucidi. Cerebellum. Cisterna magna. Face Lips. Profile. Nose. Heart / Thorax RVOT view. LVOT view. 3-vessel view. 3-xewhfm-apugshx view. Situs. Aortic arch view. Bicaval view. Ductal arch view. Great vessels. Right lung. Left lung. Diaphragm. Abdomen Cord insertion. Genitals. Extremities / Skeleton Arms. Hands. Legs. Feet. sex: male. Impression ========= Single live intrauterine at 24w 6d in cephalic presentation The CASE is 11/24/2024 Fetus measures 24w 2d which is appropriate for established gestational age (EFW 18%, AC 32%) The amniotic fluid volume appears normal Mild dilation of the right kidney measuring 4.2mm. (Normal <4mm at this gestational age.) No major malformations or aneuploidy markers were seen within the limitations of ultrasound. Comment ======== Urinary tract dilation is a relatively common finding in ultrasound identified in 1-2% of all pregnancies. In up to 70% of cases it is physiologic and will resolve spontaneously as the progresses. When mild dilation is seen prior to 28 weeks, the recommended course of action is to repeat an ultrasound around 32 weeks of gestation to assess for either resolution or progressive dilation. If resolved, no further follow up is needed. If it remains dilated, a consultation with Pediatric Urology may be warranted to discuss follow up. Follow-up ======== Follow up ultrasound at 32 weeks to reassess kidneys and growth. Coding ====== Procedures [id number]: US Preg Uterus Follow Up [employer] PACS Anatomical Region Laterality Modality Other 08/10/2024 10:2 5 AM DIAGNOSTICS SALES DEVELOPER Ran Weiner MD [facility] ORDERABLES from Last 3 Months Care Teams Thread Tool Grinder Set Up Operator Relationship Specialty Start Date End Date Maura Willis, MOTEL OPERATOR-CHIEF WHARFINGER [address] [place] [address] PCP - General Nurse Practitioner 08/31/24 Taylor Dean DO [address] [place] [address] [address] [place] [address] Cardiovascular Disease 08/31/24
--- OUTSIDE RECORDS SUMMARY | 2024-10-03 08:18 | XMS_ITS | Referral Summary ---
Author Organization [facility] Address [address] [place] [address] Care Team Providers Care Sales Account Director Name Role Phone Maura Willis NP Primary Care Provider [phone] Encounters Date Type Department Care Team Description 08/31/2024 Telephone [facility] Medical Group Primary Care at [address] [place] [phone] Liza Barger 08/30/2024 4:00 AM BLACK POWDER GLAZING OPERATOR - 08/30/2024 11:59 PM BLACK POWDER GLAZING OPERATOR Hospital Encounter [facility] Emergency, Room R Discharge Disposition: Discharge to home or self care 08/30/2024 7:05 AM BLACK POWDER GLAZING OPERATOR - 08/30/2024 9:49 AM BLACK POWDER GLAZING OPERATOR Emergency [facility] Emergency Department [address] [place] [address] Oli Luo MD Shortness of breath (Primary Dx) Discharge Disposition: Discharge to home or self care 08/30/2024 4:20 AM BLACK POWDER GLAZING OPERATOR - 08/30/2024 6:51 AM BLACK POWDER GLAZING OPERATOR Hospital Encounter [facility] and [address] [address] Arlette Rojas MD Discharge Disposition: Discharge to home or self care 08/23/2024 11:29 PM BLACK POWDER GLAZING OPERATOR - 08/24/2024 3:32 AM BLACK POWDER GLAZING OPERATOR Hospital Encounter [facility] and [address] [address] Arlette Rojas MD Discharge Disposition: Discharge to home or self care 08/02/2024 Telephone [facility] Accountable Care Organization [address] [place] [address] Georgia Aguiar MA Unsuccessful Phone Call 1 (AWV SCHEDULING) 07/26/2024 Telephone [facility] Medical [facility] Primary Care at [address] [place] [phone] Maura Willis NP Medical Question/Miscellaneo us (Prior auth hospital test) 07/15/2024 12:15 PM BLACK POWDER GLAZING OPERATOR Office Visit [facility] at [address] [place] [address] Abbi Guerrero NP Dental infection (Primary Dx) 07/13/2024 Telephone [facility] at [place] [address] [address] [place] [phone] Maria Fernanda Hameed MA 07/13/2024 Telephone [facility] at [address] [place] [address] Azucena Rivera MA 07/09/2024 7:53 PM BLACK POWDER GLAZING OPERATOR - 07/09/2024 11:59 PM BLACK POWDER GLAZING OPERATOR Hospital Encounter [facility] [address] [place] [address] Vaginal discharge Discharge Disposition: Discharge to home or self care 07/09/2024 7:45 PM BLACK POWDER GLAZING OPERATOR Office Visit [facility] at [place] [address] [address] [place] [phone] Janneth Freire NP Vaginal discharge (Primary Dx); Acute vaginitis from Last 3 Months Allergies Active Allergy Reactions Criticality Noted Date Comments Promethazine Angioedema High 10/27/2021 Venom-Honey Bee Swelling Medium 04/11/2019 Medications vit 50-lyxr-egnex-d villalta 27mg iron- 800 mcg-250 mg capsule [...] She is being referred to Dr. Gallego, director of regulatory affairs, for more extensive evaluation Palpitations 11/05/2023 Assessment [...] (12/11/2020): Added automatically from request for surgery [id number] Family history of ischemic h eart disease [...] monitor. Assessment & Plan (06/26/2021 5:17 PM BLACK POWDER GLAZING OPERATOR): Not well controlled, patient continues to have [...] Unable to regain weight. H Pylori at [address] [place] [address]. Recently cbc,cmp[,TSH, TTG, stool studiea all neg. No D or clinical/lab indicatoion. Will egd Estimated Date of Delivery Comme nts Yes 11/28/2024 Date entered silke or to episode creation Immunizations Immunization Administration Dates Next Due DTP [...] OPV 02/21/1999, 4,1993,10/04 Tdap 10/16/2022,08/08/2009 Varicella 04/13/1999 Social History Tobacco Use Types Packs/Day Years [...] week 08/30/2024 How often do you attend chur or jew services? More than 4 times per year 08/30/2024 Do you belong to any clubs o r organizations such as scientologist groups, unions, fraternal or athletic groups, or [...] administer the PHQ-9) 0 08/30/2024 [facility] of Occupat ional Health - Occupational Stress [...] any time in the past 12 m [facility], were you homeless or living in a skilled nursing (including now)? No 08/30/2024 Personal Safety Answer [...] on file Legal Sex Female 7:49 PM BLACK POWDER GLAZING OPERATOR Gender Identity Not on file Sexual Orientation Not on file Last Filed Vital Signs Vital Sign Reading Time Taken Comments Blood Pressure 105/66 08/30/2024 9:00 AM BLACK POWDER GLAZING OPERATOR Pulse 88 08/30/2024 9:00 AM BLACK POWDER GLAZING OPERATOR Temperature 36.7 C (98 F) 08/30/2024 7:07 AM BLACK POWDER GLAZING OPERATOR Respiratory Rate 14 08/30/2024 7:30 AM BLACK POWDER GLAZING OPERATOR Oxygen Saturation 99% 08/30/2024 9:00 AM BLACK POWDER GLAZING OPERATOR Inhaled Oxygen Concentration - - Weight 39.5 kg (87 lb) 08/30/2024 7:07 AM BLACK POWDER GLAZING OPERATOR Height 152.4 cm (5') 08/30/2024 4:34 AM BLACK POWDER GLAZING OPERATOR Body Mass Index 16.99 08/30/2024 4:34 AM BLACK POWDER GLAZING OPERATOR Plan of Treatment Not on file Procedures Procedure Name Priority Date/Time Associated Diagnosis Comments XR CHEST 1 VIEW ED 08/30/2024 8:48 AM BLACK POWDER GLAZING OPERATOR ECG 12-LEAD STAT 08/30/2024 7:28 AM BLACK POWDER GLAZING OPERATOR EGFR STAT 08/30/2024 7:11 AM BLACK POWDER GLAZING OPERATOR DIFFERENTIAL AUTO STAT 08/30/2024 7:1 1 AM BLACK POWDER GLAZING OPERATOR TROPONIN T HIGH-SENSITIVITY SERIES (BASELINE, 2HR, 4HR, 6HR) STAT 08/30/2024 7:11 AM BLACK POWDER GLAZING OPERATOR CBC WITH AUTO DIFFERENTIAL STAT 08/30/2024 7:11 AM BLACK POWDER GLAZING OPERATOR COMPREHENSIVE METABOLIC PANEL STAT 08/30/2024 7:11 AM BLACK POWDER GLAZING OPERATOR INFLUENZA A/B, RSV, AND COVID-19 PCR Routine 08/30/2024 5:28 AM BLACK POWDER GLAZING OPERATOR URINALYSIS AND REFLEX TO MICROSCOPIC AND CULTURE STAT 08/30/2024 5:28 AM BLACK POWDER GLAZING OPERATOR ECG 12-LEAD Routine 08/24/2024 2:19 AM BLACK POWDER GLAZING OPERATOR URINALYSIS AND REFLEX TO MICROSCOPIC AND CULTURE Routine 08/23/2024 11:54 PM BLACK POWDER GLAZING OPERATOR POCT URINALYSIS DIPSTICK Routine 07/09/2024 8:08 PM BLACK POWDER GLAZING OPERATOR Vaginal discharge VAGINITIS PANEL Routine 07/09/2024 7:53 PM BLACK POWDER GLAZING OPERATOR Vaginal discharge URINE CULTURE Routine 07/09/2024 7:53 PM BLACK POWDER GLAZING OPERATOR Vaginal discharge GENITAL FLUID PAP SMEAR, THIN PREP AND HPV Routine 10/24/2020 from Last 3 Months or Most Recently Relevant to Health Maintenance Results * XR Chest 1 Vw Portable (08/30/2024 8:48 AM BLACK POWDER GLAZING OPERATOR) Anatomical Region Laterality Modality Body, Chest N/A Computed Radiogr aphy 08/30/2024 8:50 AM BLACK POWDER GLAZING OPERATOR Narrative 08/30/2024 8:50 AM BLACK POWDER GLAZING OPERATOR EXAM DESCRIPTION: XR CHEST 1 VIEW REASON [...] Dakota Boyd M.D. JA: SOCORRO Report ID: [id number] Reading Location: [place] [address] Procedure Note Dakota Boyd MD - 08/30/2024 [...] 8:50 AM - Electronically signed by Dakota QUINTANILLA: SOCORRO Report ID: [id number] Reading Location: [id number] Oli Luo MD IMG XR PROCEDURES Final Result * ECG 12 lead (08/30/2024 7:28 AM BLACK POWDER GLAZING OPERATOR) 08/30/2024 7:28 AM BLACK POWDER GLAZING OPERATOR Narrative [facility] - 08/30/2024 8:47 AM BLACK POWDER GLAZING OPERATOR Vent Rate: 84 bpm RR Interval: 711 msec [place] Interval: 104 msec QRS Duration: 77 msec QT Interval: 377 msec QTC Interval: 418 msec P-R-T Wann: 40 - 66 - 45 degrees IMPRESSION: SINUS RHYTHM WITH SHORT IL INTERVAL BORDERLINE ECG Compared to prior EKG heart rate decreased Electronically Signed By: Cisco Mckeon MD B Oli Luo MD ECG ORDERABLES Final Result [facility] [employer] [facility] * Troponin T high-sensitivity series (baseline, 2hr, 4hr, 6hr) (08/30/2024 7:11 AM BLACK POWDER GLAZING OPERATOR) Pathologist [facility] Trop T hs <6 <=14 ng/L Comment: Interpretive Data For further hscTnT resources including the diagnostic algorithm and an aid in interpretation, copy and paste this link: https://nrl.testcatalog.org/show/hsTrop Current Interpretive Data last revised 2020. Blood 08/30/2024 7:11 AM BLACK POWDER GLAZING OPERATOR 08/30/2024 7:19 AM BLACK POWDER GLAZING OPERATOR Oli Luo MD LAB BLOOD ORDERABLES Final Res ult [facility] [place] ([place]) 1 [facility] Department [place] [address] * eGFR (08/30/2024 7:11 AM BLACK POWDER GLAZING OPERATOR) Pathologist [facility] eGFR >90 >=60 mL/min/1. 73 m2 Comment: [...] last reviewed 2021. Blood 08/30/2024 7:11 AM BLACK POWDER GLAZING OPERATOR 08/30/2024 7:19 AM BLACK POWDER GLAZING OPERATOR us Oli Luo MD LAB BLOOD ORDERABLES Final Res ult [facility] ([place]) 1 [facility] Department of Laboratories [place], [place] [id number] * (ABNORMAL) Differential, auto (08/30/2024 7:11 AM BLACK POWDER GLAZING OPERATOR) Neutrophil abs 8.9(H) 1.5 - 6.5 K/cumm [...] revised on 2017. Blood 08/30/2024 7:11 AM BLACK POWDER GLAZING OPERATOR 08/30/2024 7:19 AM BLACK POWDER GLAZING OPERATOR us Oli Luo MD LAB BLOOD ORDERABLES Final Res ult [facility] [place] ([place]) 1 [facility] Department [place] [address] * (ABNORMAL) CBC with auto differential (08/30/2024 7:11 AM BLACK POWDER GLAZING OPERATOR) WBC 12.2(H) 3.8 - 9.9 K/cumm Hgb 9.7(L) 11.9 - 15.5 g/dL [facility] [place] ([place]) Hct 28.4(L) 35.6 - 45.5 % [...] RDW SD 49.1(H) 35.7 - 48.1 fL [facility] NRBC abs 0.00 0.00 - 0.01 K/cumm [facility] ([place] Blood 08/30/2024 7:11 AM BLACK POWDER GLAZING OPERATOR 08/30/2024 7:19 AM BLACK POWDER GLAZING OPERATOR us Oli Luo MD LAB BLOOD ORDERABLES Final Res ult [facility] ([place]) 1 [facility] Department [place] [address] * (ABNORMAL) Comprehensive metabolic panel (08/30/2024 7:11 AM BLACK POWDER GLAZING OPERATOR) Sodium 135 135 - 145 mmol/L Potassium, pl 3.1(L) 3.3 - 4.9 mmol/L [facility] ([place] Chloride 103 97 - 110 mmol/L [facility] ([place]) CO2 22 22 - 32 mmol/L [facility] ([place] Anion gap 10 2 - 15 mmol/L [facility] ([place] BUN 5(L) 6 - 25 mg/dL [facility] ([place]) Creatinine 0.51(L) 0.60 - 1.10 mg/dL [facility] ([place]) Glucose 97 70 - 199 mg/dL [facility] ([place] Comment: Interpretive Data Fasting glucose [...] [facility] ([place]) Blood 08/30/2024 7:11 AM BLACK POWDER GLAZING OPERATOR 08/30/2024 7:19 AM BLACK POWDER GLAZING OPERATOR Oli Luo MD LAB BLOOD ORDERABLES Final Res ult [facility] ([place]) 1 [facility] Department [place] [address] * Influenza A/B, RSV, and COVID-19 PCR Nasopharyngeal (08/30/2024 5:28 AM BLACK POWDER GLAZING OPERATOR) COVID-19 RNA Negative Negative Influenza A RNA Negative Negative [facility] ([place]) Influenza B RNA Negative Negative [facility] ([place]) RSV RNA Negative Negative [facility] ([place]) Comment: Interpretive data: Testing performed by [facility]. This test is performed using the [employer] Xpert Xpress CoV-2/Flu/RSV plus assay. This is a multiplex, real- time reverse transcriptase PCR assay intended for the qualitative detection of nucleic acid from SARS-CoV-2, influenza A, influenza B, and respiratory syncytial virus. This assay has been cleared by the [place] Food and Drug administration. The performance characteristics have been verified by the [facility]. Results must be considered in the clinical context, and a negative result does not rule out infection. Interpretive Data last revised 2023 Nasopharyngeal 08/30/2024 5: 28 AM BLACK POWDER GLAZING OPERATOR 08/30/2024 5:35 AM BLACK POWDER GLAZING OPERATOR Narrative [facility] ([place]) - 08/30/2024 6:14 AM BLACK POWDER GLAZING OPERATOR Is the Patient experiencing symptoms consistent with COVID?->Yes us Ruperto Elliott MD LAB MICROBIOLOGY - GEN ERAL ORDERABLES Final Result [facility] ([place]) 1 [facility] Department [place] [address] * Urinalysis reflex to microscopic and culture Urine, clean voided (08/30/2024 5:28 AM BLACK POWDER GLAZING OPERATOR) Color, ur Yellow Yellow Clarity, ur Clear Clear [facility] ([place]) Specific gravity, ur 1.007 1.003 - 1.030 [facility] ([place] pH, urine 7.0 [facility] ([place]) Comment: Interpretive Data U rine pH is affected by diet, medications, systemic acid-base disturbances, and renal tubular function. pH may affect urinary stone formation. For example, urine pH below 6.0 may help reduce the tendency for calcium phosphate stones and pH greater than 6.0 may reduce the tendency for uric acid stone formation. Source: [facility] Current Interpretive Data was last revised on 2017 Protein, ur ql Negative Negative [facility] ([place]) Glucose, ur ql Negative Negative [facility] ([place]) Ketones, ur Negative Negative [facility] ([place]) Bilirubin, ur Negative Negative [facility] ([place]) Blood, ur Negative Negative [facility] ([place]) Urobilinogen, ur <2.0 <2.0 mg/dL [facility] ([place]) Nitrite, ur Negative Negative [facility] ([place]) Leukocyte esterase, ur Negative Negative [facility] ([place]) UA reflex comment Reflex conditions for microscopic UA and culture not met. [facility] ([place]) Urine, clean voided 08/30/2024 5:28 AM BLACK POWDER GLAZING OPERATOR 08/30/2024 5:35 AM BLACK POWDER GLAZING OPERATOR Ruperto Elliott MD LAB MICROBIOLOGY - GEN ERAL ORDERABLES Final Result Performing Organization Address [facility] Co de Phone Number [facility] ([place]) 1 [facility] [place] [address] * ECG 12 lead (08/24/2024 2:19 AM BLACK POWDER GLAZING OPERATOR) 08/24/2024 2:19 AM BLACK POWDER GLAZING OPERATOR Narrative [facility] - 08/24/2024 6:58 AM BLACK POWDER GLAZING OPERATOR Vent Rate: 131 bpm RR Interval: 457 msec IL Interval: 105 msec QRS Duration: 77 msec QT Interval: 312 msec QTC Interval: 389 msec P-R-T Wann: 14 - -5 - 23 degrees IMPRESSION: SINUS TACHYCARDIA WITH SHORT IL INTERVAL MODERATE ST DEPRESSION [0.05+ mV ST DEPRESSION] ABNORMAL ECG Compared to prior EKG, heart rate has increased ST segment depressions are more evident Electronically Signed By: Heladio Collins MD Arlette Rojas MD ECG ORDERABLES Final Result Performing Organization Address [facility] Co de Phone Number [facility] * (ABNORMAL) Urinalysis reflex to microscopic and culture Urine, clean voided (08/23/2024 11:54 PM BLACK POWDER GLAZING OPERATOR) Color, ur Yellow Yellow Clarity, ur Clear Clear [facility] ([place]) Specific gravity, ur 1.017 1.003 - 1.030 [facility] ([place]) pH, urine 6.5 [facility] ([place]) Comment: Interpretive Data U rine pH is affected by diet, medications, systemic acid-base disturbances, and renal tubular function. pH may affect urinary stone formation. For example, urine pH below 6.0 may help reduce the tendency for calcium phosphate stones and pH greater than 6.0 may reduce the tendency for uric acid stone formation. Source: [facility] Current Interpretive Data was last revised on [...] ([place]) Urine, clean voided 08/23/2024 11:54 PM BLACK POWDER GLAZING OPERATOR 08/24/2024 12:08 AM BLACK POWDER GLAZING OPERATOR Arlette Rojas MD LAB MICROBIOLOGY - [facility] ORDERABLES Final Result [facility] ([place]) 1 [facility] Department [place] [address] * (ABNORMAL) POCT urinalysis dipstick (07/09/2024 8:08 PM BLACK POWDER GLAZING OPERATOR) Pathologist [facility] Color, Urine, POC Yellow Clarity, ur, POC Clear Clear Glucose, ur, POC Negative Negative MG/DL Bilirubin, ur, POC Negative Negative, Small, Moderate, Large Ketones, ur, POC Negative Negative Specific Olyphant, POC 1.010 1.003 - 1.030 Blood, ur, POC Trace(A) Negative pH, ur, POC 5.5 5.0 - 8.0 Protein, ur, POC Negative Negative Urobilinogen, urine, POC 0.2 0.2 - 1.0 mg/dL Nitrite, ur, POC Negative Negative Leukocytes, ur, POC Trace(A) Negative Lot Number [id number] Urine 07/09/2024 8:08 PM BLACK POWDER GLAZING OPERATOR Janneth Freire NP POINT OF CARE TEST ORDERAB LES Final Result * Vaginitis panel Vaginal (07/09/2024 7:53 PM BLACK POWDER GLAZING OPERATOR) Abbie DNA probe Not Detected Not Detected Comment:Testing performed by : [facility], [address] [place] [address]., [id number] Gardnerella DNA probe Not Detected Not Detected [facility] [place] Comment:Testing performed by : [facility], [address] [place] [address]., [id number] Trichomonas DNA probe Not Detected Not Detected [facility] [place] Comment: Interpretive Data Testing performed by [facility] via [employer] VPIII Microbial Identification Test, a [...] last revised on 2020. Testing performed by: [facility], [address] [place] [address]., [id number] Vaginal 07/09/2024 7:53 PM BLACK POWDER GLAZING OPERATOR 07/09/2024 10:42 PM BLACK POWDER GLAZING OPERATOR Janneth Freire NP LAB MICROBIOLOGY - GENERAL ORDERABLES Final Result [facility] [place] [address] [address] Department [place] [address] * Urine culture Urine, clean voided (07/09/2024 7:53 PM BLACK POWDER GLAZING OPERATOR) Report Final Report: No growth Comment:Testing performed by : [facility], [address] [place]., [address] Urine, clean voided 07/09/2024 7:53 PM BLACK POWDER GLAZING OPERATOR 07/09/2024 11:56 PM BLACK POWDER GLAZING OPERATOR Narrative [facility] [place] - 07/11/2024 6:44 AM BLACK POWDER GLAZING OPERATOR Testing performed by [facility] Microbiology Laboratory ([phone]) Janneth Freire NP LAB MICROBIOLOGY - GENERAL ORDERABLES Final Result [facility] [address] Department [place] [address] * Genital fluid pap smear, thin prep and HPV (10/24/2020) 10/24/2020 us Historical Provider LAB CYTOLOGY ORDERABLES F inal Result from Last 3 Months or Most Recently Relevant to Health Maintenance Insurance [facility] Advance Directives For more information, please contact: [phone] * Full Code (Latest Code Status on [...] 9:28 AM 01/11/2021 9:28 AM Care Teams Sales Account Director Relationship Specialty Start Date End Date Maura Willis NP [address] [address] PCP - General Family Medicine 11/05/23
--- OUTSIDE RECORDS SUMMARY | 2024-10-03 08:18 | XMS_ITS | CONTINUITY OF CARE DOCUMENT ---
Author Name curt elias Address Unknown Organization [facility] Address [address] [place] [address] [address] [place] [address] Phone [phone] Care Team Providers Care Roller Varnisher Name Role Phone Jackie Mccloud MD Unavailable [phone] Jackie Mccloud MD Unavailable [phone] PROBLEMS Condition Status Date Provider Notes Cardiology examination active Jackie clemens MD Family history of CAD male 1 st degree relative <50 active Jackie Mccloud MD Tobacco abuse active Jackie Mccloud MD Chest pain active Jackie Mccloud MD Shortness of breath active Jackie Ball Asthma active Jackie Mccloud MD ENCOUNTERS Date Type Provider Location Encounter Diag nosis - In-person encounter Office Visit Jackie Mccloud MD [facility] - In-person encounter Office Visit Jackie Mccloud MD [facility] Cardiology examinationFamily history of CAD male 1st degree relative <50Tobacco abuseChest painShortness of breathAsthma VITAL SIGNS Date Observation Value Provider Body Mass Index (Ratio) 15.37 kg/m2 Mitul Ratliff blood pressure, diastolic 75 mm[Hg] Fe jorge Warren blood pressure, systolic 125 mm[Hg] Fel andrei Warren oxygen saturation, oximetry 98 % Mitzi Warren respiratory rate E&M 18 /min Mitzi Warren pulse rate 88 /min Mitzi Warren weight E&M 77.38 [lb_av] Mitzi Warren height E&M 59.5 [in_i] Mitzi Warren weight E&M 75 [lb_av] Cynthia Wallace Body Mass Index (Ratio) 15.09 kg/m2 Mitul carlos Gaudencio blood pressure, resting No Brit stephania Block blood pressure, diastolic 70 mm[Hg] Br ittany Block blood pressure, systolic 98 mm[Hg] Reyna ttany Block pulse rate 88 /min Vee Block oxygen saturation, oximetry 98 % Vee [facility] height E&M 59.5 [in_i] Vee Block weight E&M 76 [lb_av] Vee [facility] respiratory rate E&M 16 /min [facility] ALLERGIES No Known Drug Allergies HISTORY OF MEDICATION USE No Known Medication SOCIAL HISTORY Date Observation Value Provider Underweight yes Michael Santizoquintin social history E&M S moking History: P atient currently smokes every day. P atient has been counseled to quit. Jackie Mccloud MD social history reviewed E&M revi ewed - no changes required Jackie Mccloud MD smoking/tobacco cess ation, patient education and counseling yes Mitzi Warren smoking, date started 2010 Felryan a Warren smoking history, tot al pack/day 1 Mitzi Warren cigarette use yes Mitzi Warren smoking status Current every day smoker F jesus manuel Warren number of grandchildren Jackie Ratliff Underweight yes Michael Ratliff social history E&M S moking History: P atient currently smokes every day. P atient has been counseled to quit. Jackie Mccloud MD social history reviewed E&M revi ewed - no changes required Jackie Mccloud MD smoking/tobacco cess ation, patient education and counseling yes Jackie Mccloud MD alcohol use no Vee Block smoking, date started 2010 Traci Staples smoking history, tot al pack/day 1 Vee Block cigarette use yes [facility] smoking status Current every [facility] FAMILY HISTORY Family Member Condition Mother Family History Unkno wn Father Family History of Co ngestive Heart Failure: Father Family History of Hy pertension: Father Family History of Co ngestive Heart Failure: INSURANCE PROVIDERS Payer name Policy type / Coverage type [place] [employer] party [place] Medicaid [id number] ADVANCE DIRECTIVES Name Date DISCUSSED - NO DECISION MADE DISCUSSED - NO DECISION MADE TREATMENT PLAN Date Name Performer Cardiology:Shortness of breath when bending over. The PFT were normal. Jackie Mccloud MD Cardiology Jackie Ball Cardiology:Shortness of breath when bending over. The PFT results are currently unavailable for review. Jackie Mccloud MD Cardiology:Recent st ress test was normal. The patient has been reassured. Jackie Mccloud MD Cardiology:Stable. Jackie clemens MD Cardiology:STRONGLY ENCOURAGED TO STOP SMOKING; SMOKING CESSATION TECHNIQUES DISCUSSED. Jackie Mccloud MD Cardiology:Risk factor for CAD. WIll check stress test. Michael Ratliff Cardiology:STRONGLY ENCOURAGED TO STOP SMOKING; SMOKING CESSATION TECHNIQUES DISCUSSED. Michael Ratliff Cardiology:Shortness of breath and history of asthma, will check PFTs. Michael Ratliff Cardiology:Chest karie n, shortness of breath, fatigue and family history of CAD. Will check echocardiogram and stress test. Michael Ratliff Date Name DLCO - 89576 FRC - 23163 FVC - 74714 Stress Routine Complete Echo HISTORY OF PROCEDURES Procedure Date Procedure Name Provider Procedure Notes S tatus FVC / MVV - 47634 Jackie Mccloud MD completed FRC - 51220 Jackie Mccloud MD comple orestes SpO2 w/o 6min walk/titration Jackie Mccloud MD completed DLCO - 28947 Jackie Mccloud MD compl eted Stress EKG Jackie Mccloud MD complet ed EKG Jackie Mccloud MD complet ed
--- OUTSIDE RECORDS SUMMARY | 2024-10-03 08:18 | XMS_ITS | Clinical Summary ---
Author Organization [facility] Address [address] [place] [address] [address] [place] [phone] Phone Care Team Providers Care Sales Enablement Analyst Name Role Phone Maura Willis APRN, BETTY Primary Care Provider Allergies Active Allergy Reactions Criticality Noted Date Comments Bee Venom Swelling 04/11/2019 Medications metroNIDAZOLE (FLAGYL) 500 MG Tablet Take 1 Tab by mouth 3 times daily. 30 Tab 0 7 Active HYDROcodone-kemi taminophen (NORCO) 5-325 MG Tablet Take 1 Tab by mouth every 4 hours as needed for Pain. 20 Tab 0 7 Active HYDROcodone-kemi taminophen (NORCO) 5-325 MG Tablet Take 1 Tab by mouth every 4 hours as needed for Pain. 10 Tab 7 Active naproxen (NAPROSYN) 500 MG Tablet Take 1 Tab by mouth 2 times daily as needed for Pain. 20 Tab 7 Active azithromycin (ZITHROMAX) 250 MG Tablet 2 tab(s) daily for 1 day, then 1 tab(s) daily for days 2-5. 6 Tab 8 Active predniSONE (DELTASONE) 50 MG Tablet Take 1 Tab by mouth daily. 5 Tab 8 Active albuterol (PROVENTIL HFA, VENTOLIN HFA) 108 (90 Base) MCG/ACT Aerosol Solution take 2 Puffs by inhalation every 6 hours as needed for Wheezing. 1 Inhaler 8 Active Encounters Date Type Department Care Team Description 07/26/2024 2:00 PM INDUCTION HEATING EQUIPMENT SETTER - 07/26/2024 11:59 PM INDUCTION HEATING EQUIPMENT SETTER [facility] [address] [place] [phone] Alyssa Demarco, PAC Discharge Disposition: Discharged to home or Selfcare 07/26/2024 [facility] [address] [place] [address] Alyssa Demarco, PAC Elevated d-dimer (Primary Dx); Bilateral lower extremity edema 07/24/2024 3:08 PM INDUCTION HEATING EQUIPMENT SETTER - 07/24/2024 5:50 PM INDUCTION HEATING EQUIPMENT SETTER [facility] Emergency [address] [place] [phone] Alyssa Demarco, PAC Hypokalemia Discharge Disposition: Discharged to home or Selfcare 07/24/2024 Travel from Last 3 Months Social History Tobacco Use Types Packs/Day Years Used Date Smoking Tobacco: Some Days Cigarettes Smokeless Tobacco: Never Alcohol Use Standard Drinks/Week Comments Yes 0 (1 standard drink = 0.6 oz pur e alcohol) socially Comments No Sex and Gender Information Value Date Recorded Sex Assigned at Not on file Legal Sex Female 12:40 AM CDT Gender Identity Not on file Sexual Orientation Not on file Last Filed Vital Signs Vital Sign Reading Time Taken Comments Blood Pressure 106/50 07/24/2024 5:44 PM INDUCTION HEATING EQUIPMENT SETTER Pulse 85 07/24/2024 5:44 PM INDUCTION HEATING EQUIPMENT SETTER Temperature 37.3 C (99.2 F) 07/24/2024 3:12 PM INDUCTION HEATING EQUIPMENT SETTER Respiratory Rate 18 07/24/2024 5:44 PM INDUCTION HEATING EQUIPMENT SETTER Oxygen Saturation 98% 07/24/2024 5:44 PM INDUCTION HEATING EQUIPMENT SETTER Inhaled Oxygen Concentration - - Weight 63.3 kg (139 lb 8.8 oz) 07/24/2024 3:12 P M INDUCTION HEATING EQUIPMENT SETTER Height 151.1 cm (4' 11.5 ) 07/24/2024 3:12 PM CS T Body Mass Index 27.71 07/24/2024 3:12 PM INDUCTION HEATING EQUIPMENT SETTER Plan of Treatment Health Maintenance Due Date Last Done Comments Hepatitis C Virus (HCV) Screening 1993 Pneumococcal Immunization Combined (1 of 2 - PCV) 2012 Pap Smear 2014 Cervical Cancer Screening (CCS) 2023 HPV/Cotest 2023 Influenza Immunization (#1) 2024 04/13/2021 SARS-COV-2 Immunization ( season) 2024 Respiratory Syncytial Virus (RSV) Immunization (Adult) (1 - 1-dose 75+ series) 2068 Hepatitis B Immunization Completed 994, 1993, 1993 Human Papillomavirus (HPV) Immunization Discontinued 08/08/2009 DTaP/Tdap/Td Immunization Discontinued 2022, 10/08/2021, 08/08/2009, Additional history exists TdaP Immunization Completed 10/16/2022, , 08/08/2009 Meningococcal Immunization (ACWY) Aged Out No longer eligible based on patient's age to complete this topic Rotavirus Immunization Aged Out No lo nger eligible based on patient's age to complete this topic Procedures Procedure Name Priority Date/Time Associated Diagnosis Comments US BILATERAL DUPLEX LOWER EXTREMITY VEINS Stat with Interpretation 07/26/2024 2:54 PM INDUCTION HEATING EQUIPMENT SETTER Elevated d-dimer Bilateral lower extremity edema CBC WITH AUTO DIFFERENTIAL STAT 07/24/2024 4:00 PM INDUCTION HEATING EQUIPMENT SETTER D-DIMER STAT 07/24/2024 4:00 PM INDUCTION HEATING EQUIPMENT SETTER COMPLETE BLOOD COUNT (CBC) WITH DIFF STAT 07/24/2024 4:00 PM INDUCTION HEATING EQUIPMENT SETTER CMP (COMPREHENSIVE METABOLIC PANEL) STAT 07/24/2024 4:00 PM INDUCTION HEATING EQUIPMENT SETTER from Last 3 Months Results * US BILATERAL DUPLEX LOWER EXTREMITY VEINS (07/26/2024 2:54 PM INDUCTION HEATING EQUIPMENT SETTER) Anatomical Region Laterality Modality vascular Bilateral Ultrasound 07/27/2024 2:00 PM INDUCTION HEATING EQUIPMENT SETTER Impressions 07/27/2024 2:03 PM INDUCTION HEATING EQUIPMENT SETTER IMPRESSION: No evidence of lower extremity deep venous thrombosis. Narrative 07/27/2024 2:03 PM INDUCTION HEATING EQUIPMENT SETTER EXAM DESCRIPTION: US BILATERAL DUPLEX LOWER EXTREMITY VEINS REASON FOR STUDY: elevated d-dimer TECHNIQUE: Grayscale, color and spectral Doppler imaging of the deep venous system of the bilateral lower extremities was performed. Images stored on PACS. COMPARISON: None FINDINGS: The common femoral, common femoral-saphenous vein confluence, visualized profunda femoral, superficial femoral, and popliteal veins are readily compressible bilaterally with no intraluminal thrombus on christensen scale images. There is normal color and spectral Doppler signal, including augmentation. Greater saphenous vein appears patent. Visualized calf veins are patent. THIS IS AN ELECTRONICALLY VERIFIED FINAL REPORT 07/27/2024 2:00 PM - Electronically signed by Wally Alcaraz M.D. KR: SANTINO Report ID: [id number] Reading Location: [id number] Procedure Note Wally Alcaraz MD - 07/27/2024 EXAM DESCRIPTION: US BILATERAL DUPLEX LOWER EXTREMITY VEINS REASON FOR STUDY: elevated d-dimer TECHNIQUE: Grayscale, color and spectral Doppler imaging of the deep venous system of the bilateral lower extremities was performed. Images stored on PACS. COMPARISON: None FINDINGS: The common femoral, common femoral-saphenous vein confluence, visualized profunda femoral, superficial femoral, and popliteal veins are readily compressible bilaterally with no intraluminal thrombus on christensen scale images. There is normal color and spectral Doppler signal, including augmentation. Greater saphenous vein appears patent. Visualized calf veins are patent. THIS IS AN ELECTRONICALLY VERIFIED FINAL REPORT 07/27/2024 2:00 PM - Electronically signed by Wally Alcaraz M.D. KR: SANTINO Report ID: [id number] Reading Location: [id number] IMPRESSION: No evidence of lower extremity deep venous thrombosis. Alyssa Sánchez Page PAC IMG US ORDERABLES Final Resu lt * (ABNORMAL) CBC with Auto Differential (07/24/2024 4:00 PM INDUCTION HEATING EQUIPMENT SETTER) WBC 7.64 4.00 - 12.00 10(3)/mcL 07/24/2024 4:40 PM INDUCTION HEATING EQUIPMENT SETTER [facility] RBC 3.29(L) 3.80 - 5.30 10(6)/mcL 07/24/2024 4:40 PM [facility] HEMOGLOBIN (HGB) 10.6(L) 12.0 - 15.8 g/dL 07/24/2024 4:40 PM [facility] HEMATOCRIT (HCT) 31.1(L) 36.0 - 47.0 % 07/24/2024 4:40 PM [facility] MCV 94.5 82.0 - 96.0 fL 07/24/2024 4:40 PM [facility] MCH 32.2 26.0 - 34.0 pg 07/24/2024 4:40 PM [facility] MCHC 34.1 31.0 - 36.0 g/dL 07/24/2024 4:40 PM [facility] PLATELET COUNT 182 140 - 440 10(3)/mcL 07/24/2024 4:40 PM [facility] RDW 13.8 11.8 - 15.5 % 07/24/2024 4:40 PM [facility] MPV 11.2 9.7 - 12.4 fL 07/24/2024 4:40 PM [facility] NEUTROPHILS 71.2 47.0 - 73.0 % 07/24/2024 4:40 PM [facility] LYMPHOCYTES 20.5 18.0 - 42.0 % 07/24/2024 4:40 PM [facility] MONOCYTES 6.9 4.0 - 12.0 % 07/24/2024 4:40 PM [facility] EOSINOPHILS 1.0 0.0 - 5.0 % 07/24/2024 4:40 PM [facility] BASOPHILS 0.4 0.0 - 1.0 % 07/24/2024 4:40 PM [facility] ABSOLUTE NEUTROPHILS 5.43 1.60 - 7.70 10(3)/mcL 07/24/2024 4:40 PM [facility] ABSOLUTE LYMPHOCYTES 1.57 1.30 - 3.20 10(3)/mcL 07/24/2024 4:40 PM INDUCTION HEATING EQUIPMENT SETTER [facility] ABSOLUTE MONOCYTES 0.53 0.20 - 1.00 10(3)/mcL 07/24/2024 4:40 PM INDUCTION HEATING EQUIPMENT SETTER [facility] ABSOLUTE EOSINOPHIL 0.08 0.00 - 0.40 10(3)/mcL 07/24/2024 4:40 PM INDUCTION HEATING EQUIPMENT SETTER [facility] ABSOLUTE BASOPHILS 0.03 0.00 - 0.10 10(3)/mcL 07/24/2024 4:40 PM INDUCTION HEATING EQUIPMENT SETTER [facility] NRBC PER 100 WBC 0 07/24/19 4:40 PM INDUCTION HEATING EQUIPMENT SETTER [facility] Blood Venipuncture / Unknown 07/24/2024 4:00 PM INDUCTION HEATING EQUIPMENT SETTER 07/24/2024 4:35 PM INDUCTION HEATING EQUIPMENT SETTER Alyssa Demarco PAC HEMATOLOGY ORDERABLES Final Result Performing Organization Address [facility] Co de Phone Number [facility] [place] [address] * (ABNORMAL) D-DIMER [id number] (07/24/2024 4:00 PM INDUCTION HEATING EQUIPMENT SETTER) D DIMER 0.75(H) <0.50 mcg/mL FEU 07/24/2024 5:14 PM INDUCTION HEATING EQUIPMENT SETTER [facility] Blood Venipuncture / Unknown 07/24/2024 4:00 PM INDUCTION HEATING EQUIPMENT SETTER 07/24/2024 4:35 PM INDUCTION HEATING EQUIPMENT SETTER Narrative [facility] - 07/24/2024 5:14 PM INDUCTION HEATING EQUIPMENT SETTER The FDA has approved this method to exclude the diagnosis of DVT and/or PE at the cutoff value of <0.50 mcg/mL FEU. Alyssa Demarco PAC HEMATOLOGY ORDERABLES Final Result Performing Organization Address City/[facility]/ZIP Co de Phone Number [facility] [place] [address] * (ABNORMAL) CMP (Comprehensive Metabolic Panel) (07/24/2024 4:00 PM [facility]) SODIUM 139 136 - 145 mmol/L 07/24/2024 5:08 PM [facility] POTASSIUM 3.0(L) 3.5 - 5.1 mmol/L 07/24/2024 5:08 PM [facility] CHLORIDE 109(H) 98 - 107 mmol/L 07/24/2024 5:08 PM [facility] CO2, VENOUS 22 22 - 30 mmol/L 07/24/2024 5:08 PM [facility] ANION GAP 11.0 <18.0 mmol/L 07/24/2024 5:08 PM [facility] GLUCOSE 95 70 - 99 mg/dL 07/24/2024 5:08 PM [facility] BUN 8 5 - 18 mg/dL 07/24/2024 5:08 PM [facility] CREATININE, BLOOD 0.59(L) 0.60 - 1.00 mg/dL 07/24/2024 5:08 PM [facility] BUN/CREATININE RATIO 14 12 - 20 ratio 07/24/2024 5:08 PM [facility] TOTAL PROTEIN 6.1 6.0 - 8.0 g/dL 07/24/2024 5:08 PM [facility] ALBUMIN 3.2(L) 3.5 - 5.0 g/dL 07/24/2024 5:08 PM [facility] A/G RATIO 1.1 1.0 - 2.2 07/24/2024 5:08 PM [facility] CALCIUM 8.2(L) 8.7 - 10.5 mg/dL 07/24/2024 5:08 PM [facility] T BILI 0.2 0.2 - 1.2 mg/dL 07/24/2024 5:08 PM [facility] SGOT (AST) 17 6 - 42 U/L 07/24/2024 5:08 PM INDUCTION HEATING EQUIPMENT SETTER [facility] SGPT (ALT) 6 6 - 55 U/L 07/24/2024 5:08 PM INDUCTION HEATING EQUIPMENT SETTER [facility] ALKALINE PHOSPHATASE 55 40 - 150 U/L 07/24/2024 5:08 PM INDUCTION HEATING EQUIPMENT SETTER [facility] GFR, ESTIMATED >60 >=60 07/24/2024 5:08 PM INDUCTION HEATING EQUIPMENT SETTER [facility] Comment: Creatinine Clearance is the preferred criteria for selecting drug dose adjustments in renally impaired patients. The GFR is provided as additional pertinent clinical information. GFR is reported in mL/min/1.73 sq m. Calculation based on the Chronic Kidney Disease Epidemiology Collaboration (CKD- EPI) equation refit without adjustment for race. GFR, EST. >60 >=60 025 5:08 PM INDUCTION HEATING EQUIPMENT SETTER [facility] GFR, EST. NONAFRICAN >60 >=60 07/24/2024 5:08 PM INDUCTION HEATING EQUIPMENT SETTER [facility] Blood Venipuncture / Unknown 07/24/2024 4:00 PM INDUCTION HEATING EQUIPMENT SETTER 07/24/2024 4:35 PM INDUCTION HEATING EQUIPMENT SETTER Alyssa Sánchez Page PAC CHEMISTRY ORDERABLES Final R esult [facility] [place] [address] from Last 3 Months Insurance MEDICAID [place] Care Teams Sales Enablement Analyst Relationship Specialty Start Date End Date Maura Willis, SHROUDMAN, ISOTOPE TECHNOLOGIST [id number], [facility] [address] [place] [address] PCP - General Certified Nurse Practitioner 07/26/24
[2024-10-03 08:42] VITALS: BP 116/41; PULSE 106
[2024-10-03 08:58] LABS: Add Urine Microscopic? YES; Appearance Urine Clear (Clear); Bacteria Urine None Seen /hpf; Bilirubin Urine Negative (Negative); Blood Urine Negative (Negative); Color Urine Yellow (Yellow); Glucose Urine UA Negative (Negative); Ketones Urine Negative (Negative); Leukocyte Esterase Ur Trace LEU/UL (Negative); Nitrate Urine Negative (Negative); Non Pathogenic Casts 0-2; Protein Urine Negative (Negative); RBC Urine 0-2 /hpf (0-2); Specific Grav Ur 1.004 (1.001-1.035); Squamous Epithelial Cell Urine None Seen /hpf (Few); Urobilinogen Urine 0.2 mg/dL (<2.0); WBC Urine 0-5 /hpf (0-3)
[2024-10-03] MEDS: NIFEdipine 10 MG CAPSULE PO ×2 (09:07→09:42)
[2024-10-03 09:20] VITALS: BMI 17.2
--- NOTE | 2024-10-03 09:22 | OBADM ---
This patient, Amber Merlos, admitted to the OB room OB Post 116 for observation. Patient/family oriented to hospital policies and general routines including ID bracelet, bed and alarms, visiting hours, pain management, procedures, bathroom and other care routines, personal items, smoking policy, room service/diet, and visiting hours. Patient/Family are encouraged to report perceived risks to care and to ask questions if they do not understand what they are told or what they should do.
[2024-10-03 09:30] VITALS: BP 97/54; PULSE 92
[2024-10-03 09:31] VITALS: BP 97/54; PULSE 92
[2024-10-03 10:00] VITALS: BP 95/54; PULSE 96
[2024-10-03 10:04] LABS: Fetal Fibronectin Invalid
--- NOTE | 2024-10-11 08:41 | PM.OBTRLD ---
OB - Triage/Final Diagnosis Visit Information Comments/Additional reasons for admission: I have assessed the risk for this patient, Amber Merlos, and determined that she would benefit from observation care. Evaluation Laboratory results: Laboratory Tests 10/03/24 10/03/24 08:40 09:05 Urine Color Yellow Urine Appearance Clear Urine pH 7.0 Ur Specific [place] 1.004 Urine Protein Negative Urine Glucose (UA) Negative Urine Ketones Negative Ur Blood (Man) Negative Urine Nitrate Negative Urine Bilirubin Negative Urine Urobilinogen 0.2 Leukocyte Esterase Rfl Trace H Urine RBC 0-2 Urine WBC 0-5 Ur Squamous Epith Cells None seen Urine Bacteria None seen Urine Casts 0-2 Fibronectin Invalid Final Diagnosis (1) False labor: Code(s): O47.9 - False labor, unspecified Status: Acute
== END 2024-10-03 12:30 | disposition home or self-care (01) ==
PROVIDERS: Admitting Provider Obstetrics & Gynecology; PCP Nurse Practitioner; Visit Provider Obstetrics & Gynecology
DX: O47.03 False labor before 37 completed weeks of gestation, third trimester (principal); Z3A.32 32 weeks gestation of pregnancy
CPT/HCPCS: 76815; 81001; 82731; A9270; G0378; G0379

== ENCOUNTER 2024-11-22 05:02 | Inpatient (IN) | payer OTHER, SELFPAY ==
[2024-11-22] VITALS (112 sets, daily range): BP systolic 56–194; BP diastolic 28–149; PULSE 29–126; RESP 16; TEMP 36.3–37; O2SAT 82–100; BMI 18.9
--- OUTSIDE RECORDS SUMMARY | 2024-11-22 05:08 | XMS_ITS | Referral Summary ---
Author Organization [facility] Address [address] [place] [address] Care Team Providers Care Olericulture Professor Name Role Phone Maura Willis NP Primary Care Provider [phone] Encounters Date Type Department Care Team Description 08/31/2024 Telephone [facility] Primary Care at [address] [place] [phone] Liza Barger 08/30/2024 4:00 AM PHOTOGRAMMETRIC TECHNICIAN - 08/30/2024 11:59 PM PHOTOGRAMMETRIC TECHNICIAN Hospital Encounter [facility] Emergency, Room R Discharge Disposition: Discharge to home or self care 08/30/2024 7:05 AM PHOTOGRAMMETRIC TECHNICIAN - 08/30/2024 9:49 AM PHOTOGRAMMETRIC TECHNICIAN Emergency [facility] Emergency Department [address] [place] [address] Oli Luo MD Shortness of breath (Primary Dx) Discharge Disposition: Discharge to home or self care 08/30/2024 4:20 AM PHOTOGRAMMETRIC TECHNICIAN - 08/30/2024 6:51 AM PHOTOGRAMMETRIC TECHNICIAN Hospital Encounter [facility] [address] [place] [address] Arlette Rojas MD Discharge Disposition: Discharge to home or self care from Last 3 Months Allergies Active Allergy Reactions Criticality Noted Date Comments Promethazine Angioedema High 10/27/2021 Venom-Honey Bee Swelling Medium 04/11/2019 Medications vit 57-vteq-arpsg-d villalta 27mg iron- 800 mcg-250 mg capsule [...] as needed for wheezing 1 each 4 Active acetaminophen-c odeine (TYLENOL with CODEINE #3) [...] She is being referred to Dr. Gallego, environmental field team member, for more extensive evaluation Palpitations 11/05/2023 Assessment [...] (12/11/2020): Added automatically from request for surgery [id number] Family history of ischemic h eart disease [...] monitor. Assessment & Plan (06/26/2021 5:17 PM PHOTOGRAMMETRIC TECHNICIAN): Not well controlled, patient continues to have [...] Unable to regain weight. H Pyl[facility] at [address] [place] [address]. Recently cbc,cmp[,TSH, TTG, stool studiea all neg. [...] How often do you attend chur or adventist services? More than 4 times per year 08/30/2024 Do you belong to any clubs o r organizations such as roman catholic groups, unions, fraternal or athletic groups, or [...] staff should administer the PHQ-9) 0 08/30/2024 [facility] - Occupational [...] any time in the past 12 m [facility], were you homeless or living in a group home (including now)? No 08/30/2024 Personal Safety Answer [...] on file Legal Sex Female 7:49 PM PHOTOGRAMMETRIC TECHNICIAN Gender Identity Not on file Sexual Orientation Not on file Last Filed Vital Signs Vital Sign Reading Time Taken Comments Blood Pressure 105/66 08/30/2024 9:00 AM PHOTOGRAMMETRIC TECHNICIAN Pulse 88 08/30/2024 9:00 AM PHOTOGRAMMETRIC TECHNICIAN Temperature 36.7 C (98 F) 08/30/2024 7:07 AM PHOTOGRAMMETRIC TECHNICIAN Respiratory Rate 14 08/30/2024 7:30 AM PHOTOGRAMMETRIC TECHNICIAN Oxygen Saturation 99% 08/30/2024 9:00 AM PHOTOGRAMMETRIC TECHNICIAN Inhaled Oxygen Concentration - - Weight 39.5 kg (87 lb) 08/30/2024 7:07 AM PHOTOGRAMMETRIC TECHNICIAN Height 152.4 cm (5') 08/30/2024 4:34 AM PHOTOGRAMMETRIC TECHNICIAN Body Mass Index 16.99 08/30/2024 4:34 AM PHOTOGRAMMETRIC TECHNICIAN Plan of Treatment Not on file Procedures Procedure Name Priority Date/Time Associated Diagnosis Comments XR CHEST 1 VIEW ED 08/30/2024 8:48 AM PHOTOGRAMMETRIC TECHNICIAN ECG 12-LEAD STAT 08/30/2024 7:28 AM PHOTOGRAMMETRIC TECHNICIAN EGFR STAT 08/30/2024 7:11 AM PHOTOGRAMMETRIC TECHNICIAN DIFFERENTIAL AUTO STAT 08/30/2024 7:1 1 AM PHOTOGRAMMETRIC TECHNICIAN TROPONIN T HIGH-SENSITIVITY SERIES (BASELINE, 2HR, 4HR, 6HR) STAT 08/30/2024 7:11 AM PHOTOGRAMMETRIC TECHNICIAN CBC WITH AUTO DIFFERENTIAL STAT 08/30/2024 7:11 AM PHOTOGRAMMETRIC TECHNICIAN COMPREHENSIVE METABOLIC PANEL STAT 08/30/2024 7:11 AM PHOTOGRAMMETRIC TECHNICIAN INFLUENZA A/B, RSV, AND COVID-19 PCR Routine 08/30/2024 5:28 AM PHOTOGRAMMETRIC TECHNICIAN URINALYSIS AND REFLEX TO MICROSCOPIC AND CULTURE STAT 08/30/2024 5:28 AM PHOTOGRAMMETRIC TECHNICIAN GENITAL FLUID PAP SMEAR, THIN PREP AND HPV Routine 10/24/2020 from Last 3 Months or Most Recently Relevant to Health Maintenance Results * XR Chest 1 Vw Portable (08/30/2024 8:48 AM PHOTOGRAMMETRIC TECHNICIAN) Anatomical Region Laterality Modality Body, Chest N/A Computed Radiogr aphy 08/30/2024 8:50 AM PHOTOGRAMMETRIC TECHNICIAN Narrative 08/30/2024 8:50 AM PHOTOGRAMMETRIC TECHNICIAN EXAM DESCRIPTION: XR CHEST 1 VIEW REASON [...] signed by Dakota QUINTANILLA: SOCORRO Report ID: [id number] Reading Location: [id number] Procedure Note Dakota Boyd MD - 08/30/2024 [...] signed by Dakota QUINTANILLA: SOCORRO Report ID: [id number] Reading Location: [id number] Oli Luo MD IMG XR PROCEDURES Final Result * ECG 12 lead (08/30/2024 7:28 AM PHOTOGRAMMETRIC TECHNICIAN) 08/30/2024 7:28 AM PHOTOGRAMMETRIC TECHNICIAN Narrative [facility] - 08/30/2024 8:47 AM PHOTOGRAMMETRIC TECHNICIAN Vent Rate: 84 bpm RR Interval: 711 msec [place] Interval: 104 msec QRS Duration: 77 msec QT Interval: 377 msec QTC Interval: 418 msec P-R-T Alston: 40 - 66 - 45 degrees IMPRESSION: SINUS RHYTHM WITH SHORT NJ INTERVAL BORDERLINE ECG Compared to prior EKG heart rate decreased Electronically Signed By: Cisco Mckeon MD B Oli Luo MD ECG ORDERABLES Final Result Performing Organization Address City/[facility] Co de Phone Number [facility] * Troponin T high-sensitivity series (baseline, 2hr, 4hr, 6hr) (08/30/2024 7:11 AM PHOTOGRAMMETRIC TECHNICIAN) Trop T hs <6 <=14 ng/L Comment: Interpretive Data For further hscTnT resources including the diagnostic algorithm and an aid in interpretation, copy and paste this link: https://nrl.testcatalog.org/show/hsTrop Current Interpretive Data last revised 2020. Blood 08/30/2024 7:11 AM PHOTOGRAMMETRIC TECHNICIAN 08/30/2024 7:19 AM PHOTOGRAMMETRIC TECHNICIAN Oli Luo MD LAB BLOOD ORDERABLES Final Res ult Performing Organization Address City/[facility] Co de Phone Number [facility]) 1 [facility] [place] [address] * eGFR (08/30/2024 7:11 AM PHOTOGRAMMETRIC TECHNICIAN) eGFR >90 >=60 mL/min/1. 73 m2 Comment: [...] last reviewed 2021. Blood 08/30/2024 7:11 AM PHOTOGRAMMETRIC TECHNICIAN 08/30/2024 7:19 AM PHOTOGRAMMETRIC TECHNICIAN us Oli Luo MD LAB BLOOD ORDERABLES Final Res ult [facility] ([facility]) 1 [facility] [place] [address] * (ABNORMAL) Differential, auto (08/30/2024 7:11 AM PHOTOGRAMMETRIC TECHNICIAN) Neutrophil abs 8.9(H) 1.5 - 6.5 K/cumm Imm gran abs 0.3(H) 0.0 - 0.1 K/cumm [facility] ([place]) Lymphocyte abs 2.1 0.8 - 3.3 K/cumm [facility] ([place]) Monocyte abs 0.8 0.2 - 0.8 K/cumm [facility] ([place]) Eosinophil abs 0.1 0.0 - 0.5 K/cumm [facility] ([place]) Basophil abs 0.1 0.0 - 0.1 K/cumm [facility] ([place]) Neutrophil pct 72.5 % [facility] [...] revised on 2017. Blood 08/30/2024 7:11 AM PHOTOGRAMMETRIC TECHNICIAN 08/30/2024 7:19 AM PHOTOGRAMMETRIC TECHNICIAN Oli Luo MD LAB BLOOD ORDERABLES Final Res ult [facility] ([place]) 1 [facility] Department [place] [address] * (ABNORMAL) CBC with auto differential (08/30/2024 7:11 AM PHOTOGRAMMETRIC TECHNICIAN) WBC 12.2(H) 3.8 - 9.9 K/cumm Hgb [...] [facility] ([place]) Blood 08/30/2024 7:11 AM PHOTOGRAMMETRIC TECHNICIAN 08/30/2024 7:19 AM PHOTOGRAMMETRIC TECHNICIAN us Oli Luo MD LAB BLOOD ORDERABLES Final Res ult [facility] ([place]) 1 [facility] Department [place] [address] * (ABNORMAL) Comprehensive metabolic panel (08/30/2024 7:11 AM PHOTOGRAMMETRIC TECHNICIAN) Sodium 135 135 - 145 mmol/L Potassium, [...] [facility] ([place]) Blood 08/30/2024 7:11 AM PHOTOGRAMMETRIC TECHNICIAN 08/30/2024 7:19 AM PHOTOGRAMMETRIC TECHNICIAN us Oli Luo MD LAB BLOOD ORDERABLES Final Res ult [facility] 1 [facility] [place] [address] * Influenza A/B, RSV, and COVID-19 PCR Nasopharyngeal (08/30/2024 5:28 AM PHOTOGRAMMETRIC TECHNICIAN) COVID-19 RNA Negative Negative Influenza A RNA Negative Negative [facility] ([facility]) Influenza B RNA Negative Negative [facility] ([place]) RSV RNA Negative Negative [facility] ([place]) Comment: Interpretive data: Testing performed by [facility]. This test is performed using the [facility] Xpert Xpress CoV-2/Flu/RSV plus assay. This is a multiplex, real- time reverse transcriptase PCR assay intended for the qualitative detection of nucleic acid from SARS-CoV-2, influenza A, influenza B, and respiratory syncytial virus. This assay has been cleared by the [place] Food and Drug administration. The performance characteristics have been verified by the [facility]. Results must be considered in the clinical context, and a negative result does not rule out infection. Interpretive Data last revised 2023 Nasopharyngeal 08/30/2024 5: 28 AM PHOTOGRAMMETRIC TECHNICIAN 08/30/2024 5:35 AM PHOTOGRAMMETRIC TECHNICIAN Narrative [facility] ([place]) - 08/30/2024 6:14 AM PHOTOGRAMMETRIC TECHNICIAN Is the Patient experiencing symptoms consistent with COVID?->Yes us Ruperto Elliott MD LAB MICROBIOLOGY - GEN ERAL ORDERABLES Final Result [facility] [place] ([place]) 1 [facility] [place] [address] * Urinalysis reflex to microscopic and culture Urine, clean voided (08/30/2024 5:28 AM PHOTOGRAMMETRIC TECHNICIAN) Color, ur Yellow Yellow Clarity, ur Clear Clear [facility] ([place]) Specific gravity, ur 1.007 1.003 - 1.030 [facility] ([place]) pH, urine 7.0 [facility] ([place]) Comment: Interpretive Data U rine pH is affected by diet, medications, systemic acid-base disturbances, and renal tubular function. pH may affect urinary stone formation. For example, urine pH below 6.0 may help reduce the tendency for calcium phosphate stones and pH greater than 6.0 may reduce the tendency for uric acid stone formation. Source: [facility] [employer] Current Interpretive Data was last revised on [...] (LAL[place]) Urine, clean voided 08/30/2024 5:28 AM PHOTOGRAMMETRIC TECHNICIAN 08/30/2024 5:35 AM PHOTOGRAMMETRIC TECHNICIAN Ruperto Elliott MD LAB MICROBIOLOGY - GEN ERAL ORDERABLES Final Result [facility] [place] ([place]) 1 [facility] Department [place] [address] * Genital fluid pap smear, thin prep and HPV (10/24/2020) 10/24/2020 us Historical Provider LAB CYTOLOGY ORDERABLES F inal Result from Last 3 Months or Most Recently Relevant to Health Maintenance Insurance [facility] Advance Directives For more information, please contact: [phone] * Full Code (Latest Code Status on [...] 9:28 AM 01/11/2021 9:28 AM Care Teams Olericulture Professor Relationship Specialty Start Date End Date Maura Willis NP [address] [facility] [address] [place] [address] PCP - General Family Medicine 11/05/23
--- OUTSIDE RECORDS SUMMARY | 2024-11-22 05:08 | XMS_ITS | Clinical Summary ---
Author Organization [facility] Address [facility] [place] [address] [place] [phone] Phone Care Team Providers Care Rental Sales Agent Name Role Phone Maura Willis APRN, BETTY [...] needed for Wheezing. 1 Inhaler 8 Active Social History Tobacco Use Types Packs/Day Years [...] Comments Blood Pressure 106/50 07/24/2024 5:44 PM COLLISION WORKER Pulse 85 07/24/2024 5:44 PM COLLISION WORKER Temperature 37.3 C (99.2 F) 07/24/2024 3:12 PM COLLISION WORKER Respiratory Rate 18 07/24/2024 5:44 PM COLLISION WORKER Oxygen Saturation 98% 07/24/2024 5:44 PM COLLISION WORKER Inhaled Oxygen Concentration - - Weight 63.3 kg (139 lb 8.8 oz) 07/24/2024 3:12 P M COLLISION WORKER Height 151.1 cm (4' 11.5 ) 07/24/2024 3:12 PM CS T Body Mass Index 27.71 07/24/2024 3:12 PM COLLISION WORKER Plan of Treatment Health Maintenance Due Date Last Done Comments Hepatitis C Virus (HCV) Screening 1993 Pneumococcal Immunization Combined (1 of 2 - PCV) 2012 Pap Smear 2014 Cervical Cancer Screening (CCS) 2023 HPV/Cotest 2023 SARS-COV-2 Immunization ( - season) 2024 Influenza Immunization (Season Ended) 2025 04/13/2021 Respiratory Syncytial Virus (RSV) Immunization (Adult) (1 [...] on patient's age to complete this topic Insurance MEDICAID [place] Care Teams Rental Sales Agent Relationship Specialty Start Date End Date Maura Willis, SAMPLE PREPARATION SUPERVISOR, LOG DECK TENDER [address] , [address] [address] PCP - General Certified Nurse Practitioner 07/26/24
--- OUTSIDE RECORDS SUMMARY | 2024-11-22 05:08 | XMS_ITS | Clinical Summary ---
Author Organization [facility] Address [address] [place] [address] Care Team Providers Care Director Of Business Applications Name Role Phone Maura Willis NP Primary Care Provider [phone] Allergies Active Allergy Reactions Criticality Noted Date Comments Promethazine Angioedema High 10/27/2021 Venom-Honey Bee Swelling Medium 04/11/2019 Medications vit 33-xhdf-dqbyl-d villalta 27mg iron- 800 mcg-250 mg capsule [...] She is being referred to Dr. Gallego, content management specialist, for more extensive evaluation Palpitations 11/05/2023 Assessment [...] (12/11/2020): Added automatically from request for surgery [id number] Family history of ischemic h eart disease [...] monitor. Assessment & Plan (06/26/2021 5:17 PM FIREWALL ADMINISTRATOR): Not well controlled, patient continues to have [...] Unable to regain weight. H Pylori at [address] [place] [address]. Recently cbc,cmp[,TSH, TTG, stool studiea all neg. No D or clinical/lab indicatoion. Will egd Estimated Date of Delivery Comme nts Yes 11/28/2024 Date entered silke or to episode creation Encounters Date Type Department Care Team Description 08/31/2024 Telephone [facility] Primary Care at [address] [place] [id number] Liza Barger 08/30/2024 7:05 AM FIREWALL ADMINISTRATOR - 08/30/2024 9:49 AM FIREWALL ADMINISTRATOR Emergency [facility] Emergency Department [address] [place] [address] Oli Luo MD Shortness of breath (Primary Dx) Discharge Disposition: Discharge to home or self care 08/30/2024 4:20 AM FIREWALL ADMINISTRATOR - 08/30/2024 6:51 AM FIREWALL ADMINISTRATOR Hospital Encounter [facility] [address] [place] [address] Arlette Rojas MD Discharge Disposition: Discharge to home or self care 08/30/2024 4:00 AM FIREWALL ADMINISTRATOR - 08/30/2024 11:59 PM FIREWALL ADMINISTRATOR Hospital Encounter [facility] Emergency, Room R Discharge Disposition: Discharge to home or self care from Last 3 Months Immunizations Immunization Administration [...] 08/30/2024 How often do you attend chur ch or druze services? More than 4 times per year 08/30/2024 Do you belong to any clubs o r organizations such as temple groups, unions, fraternal or athletic groups, or [...] staff should administer the PHQ-9) 0 08/30/2024 [facility] of Occupat ional Health - Occupational Stress [...] any time in the past [address] [facility], were you homeless or living in [...] on file Legal Sex Female 7:49 PM FIREWALL ADMINISTRATOR Gender Identity Not on file Sexual Orientation [...] Estimated Date of Delivery 08/23/2024 - Present (11/22/2024) 11/28/2024 (based on Alternate CASE Entry) Dating Summary Based On CASE GA Diff Last Menstrual Period on 02/18/2024 (Exact Date) 11/24/2024 +4d Alternate CASE Entry 11/28/2024 Working Comment:Date entered prior t o episode creation Vitals Pregravid Weight Height TWG (As of 11/22/2024) Pregrav id BMI 152.4 cm (5') Date GA Fund Present FHR Mvmt BP Weight Edema Alb Glu Ket Dil/ Eff/Sta 5 26w2d Inpatient data not displayed here. See encounter summary. 5 27w1d Inpatient data not displayed here. See encounter summary. Last Filed Vital Signs Vital Sign Reading Time Taken Comments Blood Pressure 105/66 08/30/2024 9:00 AM FIREWALL ADMINISTRATOR Pulse 88 08/30/2024 9:00 AM FIREWALL ADMINISTRATOR Temperature 36.7 C (98 F) 08/30/2024 7:07 AM FIREWALL ADMINISTRATOR Respiratory Rate 14 08/30/2024 7:30 AM FIREWALL ADMINISTRATOR Oxygen Saturation 99% 08/30/2024 9:00 AM FIREWALL ADMINISTRATOR Inhaled Oxygen Concentration - - Weight 39.5 kg (87 lb) 08/30/2024 7:07 AM FIREWALL ADMINISTRATOR Height 152.4 cm (5') 08/30/2024 4:34 AM FIREWALL ADMINISTRATOR Body Mass Index 16.99 08/30/2024 4:34 AM FIREWALL ADMINISTRATOR Plan of Treatment Health Maintenance Due Date Last Done Comments Hepatitis C Screening 1993 Varicella Vaccines (2 of 2 - 2-dose childhood series) 07/06/1999 04/13/1999 HPV Vaccines (2 - 3-dose series) 09/05/2009 08/08/19 10 Regular Well Visit/Exam 18-64 2011 Pneumococcal vaccine <65 (1 of 2 - PCV) 2012 Cervical Cancer Screening 10/24/2021 10/24/2020 Influenza Vaccine (Season Ended) 2025 04/13/20 21 Depression Screening 08/24/2025 08/24/2024, 08/23/2024, 11/05/2023, Additional history exists DTaP/Tdap/Td Vaccine (7 - Td or Tdap) 10/16/2032 10/16/2022, 08/08/2009, 02/21/1999, Additional history exists Hepatitis B Screening Completed 03/27/1994 , 1993, 1993 Procedures Procedure Name Priority Date/Time Associated Diagnosis Comments XR CHEST 1 VIEW ED 08/30/2024 8:48 AM FIREWALL ADMINISTRATOR ECG 12-LEAD STAT 08/30/2024 7:28 AM FIREWALL ADMINISTRATOR EGFR STAT 08/30/2024 7:11 AM FIREWALL ADMINISTRATOR DIFFERENTIAL AUTO STAT 08/30/2024 7:1 1 AM FIREWALL ADMINISTRATOR TROPONIN T HIGH-SENSITIVITY SERIES (BASELINE, 2HR, 4HR, 6HR) STAT 08/30/2024 7:11 AM FIREWALL ADMINISTRATOR CBC WITH AUTO DIFFERENTIAL STAT 08/30/2024 7:11 AM FIREWALL ADMINISTRATOR COMPREHENSIVE METABOLIC PANEL STAT 08/30/2024 7:11 AM FIREWALL ADMINISTRATOR INFLUENZA A/B, RSV, AND COVID-19 PCR Routine 08/30/2024 5:28 AM FIREWALL ADMINISTRATOR URINALYSIS AND REFLEX TO MICROSCOPIC AND CULTURE STAT 08/30/2024 5:28 AM FIREWALL ADMINISTRATOR GENITAL FLUID PAP SMEAR, THIN PREP AND HPV Routine 10/24/2020 from Last 3 Months or Most Recently Relevant to Health Maintenance Results * XR Chest 1 Vw Portable (08/30/2024 8:48 AM FIREWALL ADMINISTRATOR) Anatomical Region Laterality Modality Body, Chest N/A Computed Radiogr aphy 08/30/2024 8:50 AM FIREWALL ADMINISTRATOR Narrative 08/30/2024 8:50 AM FIREWALL ADMINISTRATOR EXAM DESCRIPTION: XR CHEST 1 VIEW REASON [...] Dakota Boyd M.D. JA: SOCORRO Report ID: [id number] Reading Location: [id number] Procedure Note Dakota Boyd MD - 08/30/2024 [...] Dakota Boyd M.D. JA: SOCORRO Report ID: [id number] Reading Location: [id number] Result [facility] Oli Luo MD IMG XR PROCEDURES Final Result * ECG 12 lead (08/30/2024 7:28 AM FIREWALL ADMINISTRATOR) 08/30/2024 7:28 AM FIREWALL ADMINISTRATOR Narrative [facility] - 08/30/2024 8:47 AM FIREWALL ADMINISTRATOR Vent Rate: 84 bpm RR Interval: 711 msec VA Interval: 104 msec QRS Duration: 77 msec QT Interval: 377 msec QTC Interval: 418 msec P-R-T [place]: 40 - 66 - 45 degrees IMPRESSION: SINUS RHYTHM WITH SHORT VA INTERVAL BORDERLINE ECG Compared to prior EKG heart rate decreased Electronically Signed By: Cisco Mckeon MD B us Oli Luo MD ECG ORDERABLES Final Result [facility] * Troponin T high-sensitivity series (baseline, 2hr, 4hr, 6hr) (08/30/2024 7:11 AM FIREWALL ADMINISTRATOR) Trop T hs <6 <=14 ng/L Comment: Interpretive Data For further hscTnT resources including the diagnostic algorithm and an aid in interpretation, copy and paste this link: https://nrl.testcatalog.org/show/hsTrop Current Interpretive Data last revised 2020. Blood 08/30/2024 7:11 AM FIREWALL ADMINISTRATOR 08/30/2024 7:19 AM FIREWALL ADMINISTRATOR us Oli Luo MD LAB BLOOD ORDERABLES Final Res ult [facility] [place] ([place]) 1 [facility] Department [place] [address] * eGFR (08/30/2024 7:11 AM FIREWALL ADMINISTRATOR) eGFR >90 >=60 mL/min/1. 73 m2 Comment: [...] last reviewed 2021. Blood 08/30/2024 7:11 AM FIREWALL ADMINISTRATOR 08/30/2024 7:19 AM FIREWALL ADMINISTRATOR Oli Luo MD LAB BLOOD ORDERABLES Final Res ult Performing Organization Address City/[facility]/ZIP Co de Phone Number [facility] [place] ([place]) 1 [facility] Department [place] [address] * (ABNORMAL) Differential, auto (08/30/2024 7:11 AM FIREWALL ADMINISTRATOR) Neutrophil abs 8.9(H) 1.5 - 6.5 K/cumm [...] revised on 2017. Monocyte pct 6.8 % [facility] ([place]) Comment: Interpretive Data Percent cell [...] revised on 2017. Basophil pct 0.4 % [facility] ([place]) Comment: Interpretive Data Percent cell count reference ranges are not reported, since discordance with absolute values may lead to misinterpretation of CBC data. Current Interpretive Data was last revised on 2017. Blood 08/30/2024 7:11 AM FIREWALL ADMINISTRATOR 08/30/2024 7:19 AM FIREWALL ADMINISTRATOR us Oli Luo MD LAB BLOOD ORDERABLES Final Res ult [facility] [place] ([place]) 1 [facility] Department [place] [address] * (ABNORMAL) CBC with auto differential (08/30/2024 7:11 AM FIREWALL ADMINISTRATOR) WBC 12.2(H) 3.8 - 9.9 K/cumm Hgb [...] [facility] ([place]) Blood 08/30/2024 7:11 AM FIREWALL ADMINISTRATOR 08/30/2024 7:19 AM FIREWALL ADMINISTRATOR us Oli Luo MD LAB BLOOD ORDERABLES Final Res ult [facility] ([place] 1 [facility] Department [place] [address] * (ABNORMAL) Comprehensive metabolic panel (08/30/2024 7:11 AM FIREWALL ADMINISTRATOR) Sodium 135 135 - 145 mmol/L Potassium, [...] [facility] ([place]) Blood 08/30/2024 7:11 AM FIREWALL ADMINISTRATOR 08/30/2024 7:19 AM FIREWALL ADMINISTRATOR us Oli Luo MD LAB BLOOD ORDERABLES Final Res ult [facility] ([place] 1 [facility] Department of Laboratories [place], [place] [id number] * Influenza A/B, RSV, and COVID-19 PCR Nasopharyngeal (08/30/2024 5:28 AM FIREWALL ADMINISTRATOR) COVID-19 RNA Negative Negative Influenza A RNA Negative Negative [facility] ([place]) Influenza B RNA Negative Negative [facility] ([place]) RSV RNA Negative Negative [facility] ([place]) Comment: Interpretive data: Testing performed by [facility]. This test is performed using the O-CODES Xpert Xpress CoV-2/Flu/RSV plus assay. This is a multiplex, real- time reverse transcriptase PCR assay intended for the qualitative detection of nucleic acid from SARS-CoV-2, influenza A, influenza B, and respiratory syncytial virus. This assay has been cleared by the [place] Food and Drug administration. The performance characteristics have been verified by the [facility]. Results must be considered in the clinical context, and a negative result does not rule out infection. Interpretive Data last revised 2023 Nasopharyngeal 08/30/2024 5: 28 AM FIREWALL ADMINISTRATOR 08/30/2024 5:35 AM FIREWALL ADMINISTRATOR Narrative [facility] [place] - 08/30/2024 6:14 AM FIREWALL ADMINISTRATOR Is the Patient experiencing symptoms consistent with COVID?->Yes us Ruperto Elliott MD LAB MICROBIOLOGY - GEN ERAL ORDERABLES Final Result [facility] [place] ([place] 1 [facility] Department [place] [address] * Urinalysis reflex to microscopic and culture Urine, clean voided (08/30/2024 5:28 AM FIREWALL ADMINISTRATOR) Color, ur Yellow Yellow Clarity, ur Clear Clear [facility] [place] ([place]) Specific gravity, ur 1.007 1.003 - 1.030 [facility] [place] ([place]) pH, urine 7.0 [facility] [place] ([place]) Comment: Interpretive Data U rine pH is affected by diet, medications, systemic acid-base disturbances, and renal tubular function. pH may affect urinary stone formation. For example, urine pH below 6.0 may help reduce the tendency for calcium phosphate stones and pH greater than 6.0 may reduce the tendency for uric acid stone formation. Source: [facility] Perfect Channel Current Interpretive Data was last revised on [...] and culture not met. [facility] ([place]) [id number]|2024-11-22 10:35:51|2024-11-22 10:35:51|WPDOBADMIT||||"Obstetrics - Admit Note Admission Note: record reviewed. Additions to the history and/or subsequent changes in the physical findings follow. 29 y/o at 39 5/7 weeks here for scheduled induction of labor. Now comfortable with epidural. AVSS NST reactive TOCO: contractions every 4-5 min ABD soft, nontender, gravid, vertex EXT nontender Cervix 4-5/50/-2. AROM with clear fluid. Vertex. A: IUP at term with favorable cervix. P: Oxytocin. Anticipate ."
--- OUTSIDE RECORDS SUMMARY | 2024-11-22 05:08 | XMS_ITS | Clinical Summary ---
Author Organization [facility] Address [address] [place] [address] Care Team Providers Care Auto Body Mechanic Apprentice Name Role Phone LazaroJuan de andalanie Armenta APRN-ROUTE CDL DRIVER Primary Care Provider + Taylor Dean DO Unavailable [phone] Source Comments [facility],non-owned Affiliates and Associated Physician Practices is amultiple site organization consisting of ambulatory clinics and hospital sitesin [place], [place], [place] and [place]. This disclosure is being madepursuant to the Care Everywhere program and may not contain all information available regarding this patient. Last updated 18.[facility] Allergies Active Allergy Reactions Criticality Noted Date Comments Bee Venom Swelling High 04/11/2019 Promethazine Angioedema High 10/27/2021 Medications * This document contains information received from the source organization and may not represent a complete record from that organization. * Be aware that medications may not be up to date on this document. Alwaysverify current medications with the patient. Vit-DSS-Fe Fum-FA ( vitamin with iron) tabletIndicatio ns: Take 1 (one) tablet by mouth once daily Reasons: Active albuterol HFA (Proventil; Ventolin; Proair) 108 (90 Base) MCG/ACT inhaler Inhale 2 (two) puffs by mouth every 6 hours as needed 4 Active ferrous gluconate 324 (38 Fe) MG tablet Take 1 (one) tablet by mouth daily with breakfast Active Active Problems Problem Noted Date Diagnosed [...] FU with dentist. Pt to FU with business mail entry clerk to discuss other control measures. Stop Soda. [...] Encounters Date Type Department Care Team Description 10/12/2024 12:30 PM CDT Office Visit [facility] [address] [place] [address] [address] [place] [address] Matty Franco APRN-BETTY Palpitations (Primary Dx); Hypokalemia 09/06/2024 12:32 PM PLANT CONTROL AIDE - 09/06/2024 11:59 PM PLANT CONTROL AIDE Hospital Encounter [facility] [address] [place] [address], [address] [place] [address] Taylor Dean, DO Discharge Disposition: Home or Self Care 08/31/2024 2:10 PM PLANT CONTROL AIDE - 08/31/2024 11:59 PM PLANT CONTROL AIDE Hospital Encounter [facility] [address] [place] [address] Taylor Dean, DO Discharge Disposition: Home or Self Care 08/31/2024 12:30 PM PLANT CONTROL AIDE Office Visit [facility] [address] [place] [address] [address] [place] [address] Soni Sharma MD White, Stephanie M, DO RBBB (Primary Dx); Palpitations; Cardiac arrhythmia, unspecified cardiac arrhythmia type; 20 weeks gestation of 08/31/2024 9:00 AM PLANT CONTROL AIDE Procedure visit [facility] [address] [place] [address] [address] [place] [address] Taylor Dean, DO Palpitations 08/31/2024 Orders Only [facility] Women's Health Maternal & Care [address] [place], [place] [id number] Yahaira Sanchez RN from Last 3 Months Family History Medical History Relation Name Comments CAD (Coronary Artery Disease) Father On disability Hypercholesterolemia Father Anesthesia Reaction Neg Hx Relation Name Status Comments Father Social History Tobacco Use Types Packs/Day Years Used Date Smoking Tobacco: Every Day Cigarettes 0.5 11.4 Started: 2013 Passive Smoke Exposure: Never Smokeless Tobacco: Never Tobacco Cessation:Ready to Q uit: No; Counseling Given: No Alcohol Use Standard Drinks/Week Comments Not Currently 0 (1 standard drink = 0.6 oz pur e alcohol) PHQ-2 Answer Date Recorded Patient Health Questionnaire-2 Score 0 10/12/2024 Estimated Date of Delivery Comme nts Yes 11/24/2024 Based on last me nstrual period of 02/18/2024 Sex and Gender Information Value Date Recorded Sex Assigned at Not on file Legal Sex Female 9:51 AM PLANT CONTROL AIDE Gender Identity Not on file Sexual Orientation Not on file Occupation Industry Job Start Date Job End Date Student Not on file Not on file Not on file Last Filed Vital Signs Vital Sign Reading Time Taken Comments Blood Pressure 98/54 10/12/2024 12:42 PM CDT Pulse 98 10/12/2024 12:42 PM CDT Temperature 36.9 C (98.4 F) 10/12/2024 12:42 PM CDT Respiratory Rate 20 08/16/2011 3:30 PM PLANT CONTROL AIDE Oxygen Saturation 99% 10/12/2024 12:42 PM CDT Inhaled Oxygen Concentration - - Weight 41.7 kg (92 lb) 10/12/2024 12:42 PM CDT Height 152.4 cm (5') 09/06/2024 1:00 PM PLANT CONTROL AIDE Body Mass Index 17.97 09/06/2024 1:00 PM PLANT CONTROL AIDE Plan of Treatment Upcoming Encounters Date Type Department Care Team (Late st Contact Info) Description 01/11/2025 3:30 PM CDT Office Visit [facility] [address] [place] [address] [address] [place], [place] [id number] [place] [address] [place] [address] [address] [place], [place] [id number] Health Maintenance Due Date Last Done Comments PAP SMEAR 1993 HIV SCREENING 2008 HEPATITIS C SCREENING 04/25/2011 DTAP/TDAP/TD VACCINES (1 - Tdap) 2012 HEPATITIS B VACCINE (1 of 3 - 19+ 3-dose series) 2012 PNEUMOCOCCAL VACCINE (1 of 2 - PCV) 2012 COVID-19 VACCINE (1 - 2023-2 5 season) 2024 OB-ONE HOUR GLUCOSE 08/18/2024 OB-TDAP CURRENT 08/25/2024 OB-RHOGAM INJECTION 09/01/2024 OB-GROUP B STREP SCREEN 10/20/2024 INFLUENZA VACCINE (Season Ended) 2025 04/13/20 21 ZOSTER VACCINE (1 of 2) 2043 DEPRESSION SCREENING Completed 10/12/2024 HIB VACCINE Aged Out No longer eligi [...] Palpitations ECHO COMPLETE Routine 09/06/2024 1:00 PM PLANT CONTROL AIDE RBBB Palpitations TSH Routine 08/31/2024 2:35 PM PLANT CONTROL AIDE Palpitations from Last 3 Months Results * MONITOR - HOLTER (09/27/2024 10:16 PM CDT) Narrative Mikey Weber MD - 09/27/2024 10:16 PM CDT Mikey Weber MD 09/27/2024 10:19 PM [facility] - Heart & Vascular - Holter Monitor Name: Amber Merlos : 1995 Primary Care Physician:Maura Willis APRN-ROUTE CDL DRIVER Referring Physician: Taylor Dean DO Clinical Indication: [...] there are any questions. Mikey Weber MD [facility] - Heart & Vascular Care Office us Taylor M Dianne DO CARDIAC SERVICES ORDERABLES Final Result * ECHO COMPLETE (09/06/2024 1:00 PM PLANT CONTROL AIDE) IVSd 2D 0.569 cm SSM CV FUJ [...] AV pk merlin 174.487 cm/s SSM CV FUJ I PACS AV VTI 28.955 cm SSM CV FUJ I PACS MV A pk merlin 52.426 cm/s SSM CV F UJI PACS MV E pk merlin 109.289 cm/s SSM CV F UJI PACS MV E' lateral merlin 25.875 cm/s SS M CV FUJI PACS MV mn grad 2.247 mmHg SSM CV FU JI PACS MV VTI 18.651 cm SSM CV FUJ I PACS TAPSE 2.335 cm SSM CV FUJ I PACS Ascending aorta 2.481 cm SSM CV FUJI PACS IVC Diam Expiration 1.069 cm SSM CV FUJI PACS AV area index 1.353 cm /m SSM CV FUJI PACS LA vol index 0.029 l/m SSM CV FUJI PACS Dimensionless Index 0.727 unitless SSM CV FUJI PACS Myocardial strain charge 2 unitless SSM CV FUJI PACS Anatomical Region Laterality Modality Ultrasound 09/06/2024 12:5 9 PM PLANT CONTROL AIDE Narrative 09/06/2024 4:56 PM PLANT CONTROL AIDE Summary * The left ventricle is normal [...] 12:59 PM Patient Status: O/P Study Site: [facility] Primary Location: [facility] EStudy Info Technical Quality: Good Exam Type: ECHO COMPLETE Indications I45.10 - RBBB R00.2 - Palpitations Procedure(s) * A complete 2D, color Doppler, spectral Doppler, and M-Mode transthoracic echocardiogram was performed. Staff Referring Physician: Taylor Dean Ordering Provider: Taylor Dean Attending Physician: Taylor Dean Portable Grinding Machine Operator: Yary Watson Left Ventricle The left ventricle [...] 12:59 PM Patient Status: O/P Study Site: [facility] Primary Location: [facility] EStudy Info Technical Quality: Good Exam Type: ECHO COMPLETE Indications I45.10 - RBBB R00.2 - Palpitations Procedure(s) * A complete 2D, color Doppler, spectral Doppler, and M-Modetransthoracic echocardiogram was performed. Staff Referring Physician: Taylor Dean Ordering Provider: Taylor Dean Attending Physician: Taylor Dean Portable Grinding Machine Operator: Yary Watson Left Ventricle The left ventricle [...] by Taylor Dean on 09/06/2024 04:56 PM us Taylor Dean DO ECHO CUPID Final Resul t * TSH (08/31/2024 2:35 PM PLANT CONTROL AIDE) TSH 0.9813 0.35 - 4.94 uIU/mL 08/31/2024 3:32 PM PLANT CONTROL AIDE [facility] Blood BLOOD SPECIMEN / Unknown Lab Venipuncture / Unknown 08/31/2024 2:35 PM PLANT CONTROL AIDE 08/31/2024 2:45 PM PLANT CONTROL AIDE us Taylor Dean DO LAB - CHEMISTRY ORDERABLES Final Result [facility] [address] [place] [address] from Last 3 Months Insurance Care Teams Auto Body Mechanic Apprentice Relationship Specialty Start Date End Date Maura Willis, ENVIRONMENTAL INSPECTOR-ROUTE CDL DRIVER [address] [place] [address] PCP - General Nurse Practitioner 08/31/24 Taylor Dean DO [address] [facility] [facility] [address] [place] [address] Cardiovascular Disease 08/31/24
--- OUTSIDE RECORDS SUMMARY | 2024-11-22 05:08 | XMS_ITS | CONTINUITY OF CARE DOCUMENT ---
Author Name curt elias Address Unknown Organization [facility] Address [address] [place] [address] [address] [place] [address] Phone [phone] Care Team Providers Care Forensic Dna Analyst Name Role Phone Jackie Mccloud MD Unavailable [phone] Jackie Mccloud MD Unavailable [phone] PROBLEMS Condition Status Date Provider Notes Cardiology examination active Jackie clemens MD Family history of CAD male 1 st degree relative <50 active Jackei Mccloud MD Tobacco abuse active Jackie Mccloud MD Chest pain active Jackie Mccloud MD Shortness of breath active Jackie Ball Asthma active Jackie Mccloud MD ENCOUNTERS Date Type Provider Location Encounter Diag nosis - In-person encounter Office Visit [facility] - [facility] Office Visit Jackie Mc[facility] Cardiology examinationFamily history of CAD male [...] saturation, oximetry 98 % Vee [facility] height E&M 59.5 [in_i] Vee Block weight E&M 76 [lb_av] Vee [facility] respiratory rate E&M 16 /min [facility] ALLERGIES No Known Drug Allergies HISTORY OF [...] pack/day 1 Vee Block cigarette use yes [facility] smoking status Current every day smoker [facility] FAMILY HISTORY Family Member Condition Mother Family History Unkno wn Father Family History of Co ngestive Heart Failure: Father Family History of Hy pertension: Father Family History of Co ngestive Heart Failure: INSURANCE PROVIDERS Payer name Policy type / Coverage type [place] [employer] Medicaid [id number] ADVANCE DIRECTIVES Name Date DISCUSSED - NO [...] test. Michael Ratliff Date Name DLCO - 43729 FRC - 07087 FVC - 28034 Stress Routine Complete Echo HISTORY OF PROCEDURES Procedure Date Procedure Name Provider Procedure Notes S tatus FVC / MVV - 91046 Jackie Mccloud MD completed FRC - 09308 Jackie Mccloud MD comple orestes SpO2 w/o 6min walk/titration Jackie Mccloud MD completed DLCO - 30388 Jackie Mccloud MD compl eted Stress EKG Jackie Mccloud MD complet ed EKG Jackie Mccloud MD complet ed
--- NOTE | 2024-11-22 05:28 | LDADM ---
This patient, Amber Melros, was admitted to Labor/Delivery/Recovery 104 on 11/22/24 at 05:02. Plans for labor, pain management and were discussed with patient. Patient/family oriented to hospital policies and general routines including ID bracelet, bed and alarms, visiting hours, pain management, procedures, bathroom and other care routines, personal items, smoking policy, room service/diet and guest tray routines, infant security routines, and visiting hours. Patient/Family are encouraged to report perceived risks to care and to ask questions if they do not understand what they are told or what they should do. See OBIX for further documentation.
[2024-11-22] MEDS: LACTATED RINGERS 1,000 ML 125 ML IV CONT ×2 (05:49→08:04)
[2024-11-22 06:02] LABS: Basophils Percent Auto 0.3 % (0.2-1.2); Eosinophils Absolute Auto 0.1 K/mm3 (0-0.3); Eosinophils Percent Auto 0.9 % (0-4.4); Hematocrit 32.8 % (37.0-47.0); Hemoglobin 10.6 g/dL (12.0-15.0); Immature Granulocyte Absolute 0.06 K/mm3 (0.00-0.031); Immature Granulocyte Percent A 0.9 % (0-0.5); Lymphocytes Absolute Auto 2.28 K/mm3 (0.9-3.2); Lymphocytes Percent Auto 32.6 % (18.3-44.2); Mean Corpuscular HGB Conc 32.3 g/dl (32-36); Mean Corpuscular Hemoglobin 29.3 pg (26-34); Mean Corpuscular Volume 90.6 fl (80-100); Monocytes Absolute Auto 0.5 K/mm3 (0.1-0.6); Monocytes Percent Auto 7.3 % (2.6-8.5); Neutrophils Absolute Auto 4.1 K/mm3 (1.3-6.7); Platelet Count Result 170 k/mm3 (150-375); Red Blood Count 3.62 M/mm3 (4.2-5.4)
[2024-11-22] MEDS: OXYTOCIN 30 UNITS/NS 500 ML 30 UNITS/500 ML BAG IV CONT (06:22)
[2024-11-22 06:41] LABS: Syphilis IgG/IgM Antibody Negative (Negative)
[2024-11-22 06:55] LABS: HIV 1/2 Ab P24 Ag Result Negative (Negative)
--- NOTE | 2024-11-22 08:11 | WPDANESEPP ---
Anes - Eval Pre Procedure Procedure: Labor Epidural Date/Time: 11/22/24 08:11 Surgeon: nicole Preop Diagnosis: Labor Pain Pre Op Diagnosis: IOL Patient Data Age: 29 Gender: F Height: 1.52 m Weight: 44 kg Last Vital Signs Temp 36.6 C 11/22/24 06:10 Pulse 90 11/22/24 08:00 BP 105/68 11/22/24 08:00 Pulse Ox 99 11/22/24 06:56 Allergies Allergy/AdvReac Type Severity Reaction Status Date / Time bee venom protein (honey bee) Allergy Swelling Verified 11/01/24 12:41 promethazine Allergy Swelling Verified 11/01/24 12:41 of Lip/Tongue/Throat Home Medications Medication Instructions Recorded Confirmed Type ferrous sulfate 27 mg iron tablet 27 mg PO DAILY 10/03/24 11/22/24 History vits no.130-ferrous fum 1 tablet PO DAILY 10/03/24 11/22/24 History 27 mg iron-folic acid 800 mcg tablet ( Vitamin) Laboratory Tests 11/22/24 05:41 WBC 7.0 K/mm3 (4.5-10.0) RBC 3.62 L M/mm3 (4.2-5.4) Hgb 10.6 L g/dL (12.0-15.0) Hct 32.8 L % (37.0-47.0) MCV 90.6 fl (80-100) MCH 29.3 pg (26-34) MCHC 32.3 g/dl (32-36) RDW 14.0 % (11.5-14.5) Plt Count 170 k/mm3 (150-375) MPV 12.0 H fl (7.4-10.4) Immature Gran % (Auto) 0.9 H % (0-0.5) Neut % (Auto) 58.0 % (45.5-73.1) Lymph % (Auto) 32.6 % (18.3-44.2) [place] % (Auto) 7.3 % (2.6-8.5) Eos % (Auto) 0.9 % (0-4.4) Baso % (Auto) 0.3 % (0.2-1.2) Lymph # (Auto) 2.28 K/mm3 (0.9-3.2) [place] # (Auto) 0.5 K/mm3 (0.1-0.6) Eos # (Auto) 0.1 K/mm3 (0-0.3) Baso # (Auto) 0.0 K/mm3 (0.0-0.1) Abs Immat Gran (auto) 0.06 H K/mm3 (0.00-0.031) Absolute Neuts (auto) 4.1 K/mm3 (1.3-6.7) Absolute Nucleated RBC 0.000 K/mm3 (0.0-0.012) Nucleated RBC % 0.0 % (0.0-0.2) Syphilis IgG/IgM Ab Negative (Negative) HIV 1&2 Ab/P24 Ag 4thGn Negative (Negative) Blood Type A Positive Antibody Screen Negative : gestational age (, CASE 11/24/24) Patient hx anesthesia problems: none Family hx anesthesia problems: none Results Review: All pre-operative results and documents have been reviewed as part of the pre-operative evaluation. [facility] Family History Family History Father Diabetes mellitus Social History Social History Smoking status: Current every day smoker Tobacco type: cigarettes Second hand tobacco smoke exposure: Yes Substance use: current Do You Feel Safe in your Home?: Yes Lack of Transportation: No Lack of Food: Sometimes True Current Housing: I Have Housing Concerned About Future Housing: No Difficulty Paying Gas/Electric Bills: YES Difficulty Paying for Meds: No Currently Unemployed: No Education: High School Diploma/GED Difficulty w/ Childcare or Family Care: No Spiritual care concerns: No Exam Day of Procedure 11/22/24 08:11 Patient weight: normal Heart: regular rate and rhythm Lungs: normal air movement Airway: Mallampati scale class II Neurological: alert and oriented
--- NOTE | 2024-11-22 08:48 | WPDOBADMIT ---
Obstetrics - Admit Note Admission Note: record reviewed. Additions to the history and/or subsequent changes in the physical findings follow. 29 y/o at 39 5/7 weeks here for scheduled induction of labor. Now comfortable with epidural. AVSS NST reactive TOCO: contractions every 4-5 min ABD soft, nontender, gravid, vertex EXT nontender Cervix 4/50/-2. AROM with clear fluid. Vertex. A: IUP at term with favorable cervix. P: Oxytocin. Anticipate .
--- NOTE | 2024-11-22 10:35 | P.HP_ITS ---
Obstetrics - Admit Note Admission Note: record reviewed. Additions to the history and/or subsequent changes in the physical findings follow. 29 y/o at 39 5/7 weeks here for scheduled induction of labor. Now comfortable with epidural. AVSS NST reactive TOCO: contractions every 4-5 min ABD soft, nontender, gravid, vertex EXT nontender Cervix 4-5/50/-2. AROM with clear fluid. Vertex. A: IUP at term with favorable cervix. P: Oxytocin. Anticipate .
--- NOTE | 2024-11-22 11:51 | PM.OBPRVD ---
OB - Vaginal Delivery Note Procedure Delivery date: 11/22/24 Induction method: Per Pitocin Protocol Delivery augmentation: Rupture of Membranes Delivery monitor: External FHT and External Uterine Route of delivery: Episiotomy description: None Laceration Description: Perineal - 2nd Degree Delivery repair: vicryl (3-0) Specimen: Yes (cord blood) Quantitative Blood Loss (ml): 140 Anesthesia type: Epidural Disposition: PACU Complications: None Narrative: 29 y/ at 39 5/7 weeks gestation who presented to the hospital for induction of labor. Oxytocin was administered intravenously. She received an epidural. Amniotomy was performed with return of clear fluid. Her labor progressed quickly and her cervix dilated completely. She pushed with good effort and delivered the infant's head to the perineum. A loose nuchal cord was splinted and the body delivered. The cord was reduced, and the nose and mouth were bulb suctioned. After a delay, the cord was clamped and cut. The infant was handed off the field. Cord blood was collected. The placenta delivered spontaneously and was grossly normal in appearance. The usual 3 vessel cord was noted. A second degree midline perineal laceration was sustained. This was reapproximated using 3 0 Vicryl in the usual layered fashion. Excellent hemostasis resulted as did excellent reapproximation of the normal anatomy. Needle and instrument counts were correct. The patient was taken to recovery room in stable condition. The infant went to the nursery in stable condition. I was present and scrubbed for the entire delivery. Baby Date of : 11/22/24 Time of : 11:36 Gestational Age by Date: 39 Infant gender: Male Weight (pounds): 5 Weight (ounces): 14 presentation: vertex position: Left Occiput Anterior Placenta delivery description: Spontaneous and Normal Configuration Cord Vessel Description: 3 Vessels, Nuchal Cord and Delayed Cord Clamping score one minute: 9 score five minutes: 9
[2024-11-22] MEDS: OXYTOCIN 30 UNITS/NS 500 ML 30 UNITS/500 ML BAG 125 UNITS IV CONT (12:10)
[2024-11-22] MEDS: BENZOCAINE 20% AER SPR (*SP) 56 GM CAN 1 SPRAY TOPICAL (14:27)
[2024-11-22] MEDS: IBUPROFEN 600 MG TABLET PO ×2 (14:27→22:45)
[2024-11-22] MEDS: WITCH HAZEL 40 PADS 1 PAD TOPICAL (14:27)
--- NOTE | 2024-11-22 14:45 | OBPPTRN ---
Patient transferred to post room #286 via (wheelchair). Support person present. Oriented to unit, room, information board, rooming in, admission packet and security measures. Patient verbalizes understanding.
--- NOTE | 2024-11-22 15:45 | PC.NURSE ---
Introductions were made, then consulted with patient to assess needs related to . Discussed with mother her plans to feed her and the experience so far. She pumped and bottle fed with her two other babies. This baby is on blood sugars due to SGA. Resources provided for inpatient and outpatient services with the feeding sheet, mom/baby guide and name written on the communication board. Mother voiced understanding of information and will call if there is a request for assistance. Reported to the Primary RN.
--- NOTE | 2024-11-22 17:00 | PC.NURSE ---
IV access discontinued due to patients request to step outside to smoke. Patient aware that if she were to required IV access for medications, etc. a new IV site must be established.
--- NOTE | 2024-11-22 18:15 | PC.NURSE ---
Patient called out for assistance. She is concerned about baby's blood sugars and that he is getting 'enough' with . We discussed that being SGA and having low glucose doesn't necessarily reflect the efficacy of . Mom was able to latch baby independently and he suckled eagerly, mother denies pain. Encouraged mom to stimulate him throughout the feeding if he gets sleepy. She is aware that she may supplement after if it is her desire. Counseled that any feedings not at breast should be accompanied with a pumping session for consistent breast stimulation. Patient receptive to information shared and seems eager to feed directly at breast with this baby since she was unable to with her first 2 children. RN updated.
[2024-11-22] MEDS: ACETAMINOPHEN 325 MG TABLET 650 MG PO (18:24)
--- NOTE | 2024-11-22 18:53 | PM.OBDSVD ---
DS: Admitting Diagnosis Discharge Date 11/23/24 Admitting Diagnosis IUP at 39 5/7 weeks Favorable cervix DS: Discharge Diagnosis Discharge Diagnosis (1) (normal spontaneous vaginal delivery): Code(s): O80 - Encounter for full-term uncomplicated delivery Status: Acute OB - DS: Summary OB Procedures : None OB Procedures Intrapartum: Spontaneous Vag Delivery OB Procedures: : None Peripartum Data Laceration Description: Perineal - 2nd Degree Episiotomy description: None Time Spent with Patient Time attestation: Total time spent providing and/or coordinating discharge services: DS: Data Data Completed and Pending Labs on day of discharge: Labs from last 24 hours 11/22/24 05:41 WBC 7.0 RBC 3.62 L Hgb 10.6 L Hct 32.8 L MCV 90.6 MCH 29.3 MCHC 32.3 RDW 14.0 Plt Count 170 MPV 12.0 H Immature Gran % (Auto) 0.9 H Neut % (Auto) 58.0 Lymph % (Auto) 32.6 [place] % (Auto) 7.3 Eos % (Auto) 0.9 Baso % (Auto) 0.3 Lymph # (Auto) 2.28 [place] # (Auto) 0.5 Eos # (Auto) 0.1 Baso # (Auto) 0.0 Abs Immat Gran (auto) 0.06 H Absolute Neuts (auto) 4.1 Absolute Nucleated RBC 0.000 Nucleated RBC % 0.0 Syphilis IgG/IgM Ab Negative HIV 1&2 Ab/P24 Ag 4thGn Negative Blood Type A Positive Antibody Screen Negative Discharge Plan Discharge Attending physician on discharge: Ran Weiner Discharging Clinician: Ran Weiner Patient Disposition: Home Activity: pelvic rest Diet: regular Discharge Instructions: Call or return if temperature above 100.4° F, increased abdominal pain, increased vaginal bleeding or any new problems. Patient Language: Malawian Stand Alone Forms: General Discharge Information Follow-up/Referrals: Ran Weiner MD [Physician] - 6 Weeks Discharge Medications: New ibuprofen 600 mg tablet 600 mg PO Q6H PRN (Reason: cramps) Qty: 30 0RF Continued Vitamin 27 mg iron- 800 mcg tablet 1 tablet PO DAILY ferrous sulfate 27 mg iron tablet 27 mg PO DAILY Date of admission: 11/22/24 05:02 Primary Care Provider: Lazaro,Maura Armenta Admitting Provider: Ran Weiner Attending physician on admission: Ran Weiner Condition: Stable
[2024-11-23] MEDS: ACETAMINOPHEN 325 MG TABLET 650 MG PO ×2 (03:11→16:38)
[2024-11-23 03:14] VITALS: BP 116/74; PULSE 71; RESP 16; TEMP 36.1; O2SAT 97
[2024-11-23 04:23] LABS: Hematocrit 34.2 % (37.0-47.0); Hemoglobin 10.6 g/dL (12.0-15.0)
[2024-11-23] MEDS: DOCUSATE SODIUM 100 MG CAPSULE PO ×2 (07:50→16:38)
[2024-11-23] MEDS: IBUPROFEN 600 MG TABLET PO ×2 (07:50→13:53)
[2024-11-23] MEDS: MULTIVIT/MIN/PREN/FOL AC/IRON TABLET 1 TAB PO (07:50)
[2024-11-23 08:00] VITALS: BP 89/58; PULSE 67; RESP 18; TEMP 36.4; O2SAT 98
--- NOTE | 2024-11-23 08:45 | P.PNOB_ITS ---
OB - PN: Subj Subjective Date/time seen: 11/23/24 08:45 Narrative: Pain OK. Would like circumcision for son. Would like to go home. OB - PN: Obj Data Labs 11/23/24 03:39 Labs: Laboratory Results - last 24 hr 11/23/24 03:39 Hgb 10.6 L Hct 34.2 L OB - PN A/P Assessment and Plan (1) (normal spontaneous vaginal delivery): Code(s): O80 - Encounter for full-term uncomplicated delivery Status: Acute Plan day: 1 Comments: A: PPD#1, doing well. P: Reviewed circ. Home to f/u 6 weeks. Exam 2 Psych: Other: AVSS ABD soft, nontender, fundus firm EXT nontender
--- NOTE | 2024-11-23 10:03 | PC.NURSE ---
Introductions were made, then consulted with patient to assess needs related to . Mother led the conversation with her plans to feed her and the experience so far. Per mother baby did receive 2 formula bottles over night due to cluster feeding which gave her sore nipples, Lanolin given. CLC encouraged understanding of the benefits of skin to skin (demonstrating unwrapping and placing upright on her chest), stimulating with massage touch, changing positions to encourage wakefulness, how to watch for early feeding cues, responsive feeding, feeding on demand (aiming for 8-12 times in 24 hours, about every 2-3 hours), milk production, building/maintaining a milk supply, duration of feeding, signs of adequate intake/output and how to record on the feeding sheet. Mother works well with her with encouragement and education. Reviewed positioning and ear, shoulder, hip alignment, supporting the breast to facilitate a deep latch, asymmetrical latch (off-center), leading with the chin with a big, open, wide gape and body close to mother. Infant latched optimally to the [left] breast in [cross cradle] position. Education given to the mother of how to visualize the suckling (with good rocking jaw motion), swallows (dropping of the lower jaw) and how to listen for drinking at the breast (the ka sound). Infant was [able] to maintain latch with minimal pain to mother protecting the nipple with optimal positioning and latching. Reviewed comfort measures of healing with a warm, wet washcloth to rinse breast, then leave open to air-dry, good handwashing when or touching the breast/nipples to prevent infection. Mother voiced understanding of skin to skin, stimulating with massage touch, responsive feedings, hand expressed colostrum, talking to infant to encourage if it has been 2 -2.5 hours since the start of the last , to call if infant does not latch, or if there is discomfort with . Resources used for education were facilitated with the [visual educational handouts/ tool/mom and baby guide], feeding sheet, name written on the communication board, and the mom/baby guide. Parents voiced understanding of information, demonstrated learning and will call if there is a request for assistance. Reported to the Primary RN.
[2024-11-23 18:40] VITALS: BP 105/52; PULSE 48; RESP 16; TEMP 36.5; O2SAT 98
--- NOTE | 2024-11-24 16:04 | PCCCNOTE ---
Care Coordination: Met with patient, AMOL Argueta, and their three children. Patient herself discharged yesterday evening. Baby Boy (Enrique) had to stay another night to ensure weight gain. Enrique is ready for discharge today. Per pt. she has everything she needs for baby Enrique at home including a car seat for car travel. Already current with [facility] services for her 1 year old, plans to add baby to services. resources provided. Pt. reports she already has information at home from her hospital stay, encouraged her to review information and look at Food and Utility assistance resources to use. Spoke with ANGY Marie who reports last night pt. decided not to utilize a no care bed and went home to her children for the evening. Baby then was under the care of the nursing staff here. Pt. has since been here this morning visiting before she had to take her other children to school. Pt. now here again with Kendall to go over discharge plan for baby. Pt. and Kendall deny any other case management needs.
[2024-11-25 11:29] VITALS: BP 104/66; PULSE 79; RESP 18; TEMP 36.5; O2SAT 100
== END 2024-11-23 20:47 | disposition home or self-care (01) | DRG 560 ==
LOC: ANHLDR 05:07 → ANHOB2 14:52
PROVIDERS: Admitting Provider Obstetrics & Gynecology; PCP Nurse Practitioner; Visit Provider Obstetrics & Gynecology
DX: O69.81X0 Labor and delivery complicated by cord around neck, without compression, not applicable or unspecified (principal); Z37.0 Single live birth; Z3A.39 39 weeks gestation of pregnancy; O70.1 Second degree perineal laceration during delivery
CPT/HCPCS: 36415; 85014; 85018; 85025; 86593; 86703; 86850; 86900; 86901; A9270; G0432; J2590; J2795; J7120

== ENCOUNTER 2024-11-25 12:00 | Outpatient (CLI) | payer OTHER, SELFPAY ==
--- NOTE | ~2024-11-25 | XR_ITS ---
SINGLE AP VIEW PELVIS Ordering provider: Ran Weiner MD History: . Pelvic pain post delivery . Comparison: None. FINDINGS: BONES: No acute fracture or dislocation. HIP JOINT SPACES: Normal. SACROILIAC JOINT SPACES/LUMBAR SPINE: The sacroiliac joint spaces are normal. Normal visualized lower lumbar spine. PUBIC SYMPHYSIS: Normal. SOFT TISSUES: Normal. IMPRESSION: No acute osseous abnormality pelvis. Reviewed, dictated and finalized at location A.
--- NOTE | 2024-11-25 12:03 | PC.NURSE ---
Dr. Weiner informed this pt was here for her follow-up appointment after delivering vaginally on 11/22/24 with c/o pelvic/ suprapubic pain. Pt reports that the first time up to the bathroom after delivering, her nurse assisted her to the bathroom, but when she went to bend at the knees to lower onto the toilet her knee gave out under her and she sat down really hard on the toilet. She felt she was OK then, attributed her soreness to just having had a baby while she was here, but when she had a hard time getting out of bed today she became concerned. Pt feels intermittent sharp pressure discomfort when she tries to lift either of her legs very far off the floor or when she turns from side to side. Able to isolate the point of discomfort using palpation to just right of midline and anterior to symphysis pubis. Pt thought she saw some bruising by where my bones are down there . Upon visual inspection, no bruising noted including over sacral area. Order received for pelvic x-ray. Pt informed of plan of care.
--- OUTSIDE RECORDS SUMMARY | 2024-11-25 12:19 | XMS_ITS | CONTINUITY OF CARE DOCUMENT ---
Author Name curt elias Address Unknown Organization [facility] Address [id number] [place] [address] [address] [place] [address] Phone [phone] Care Team Providers Care Purchasing Supervisor Name Role Phone Jackie Mccloud MD Unavailable Jackie Mccloud MD Unavailable PROBLEMS Condition Status Date Provider Notes Cardiology [...] In-person encounter Office Visit Jackie Mccloud MD [facility] - In-person encounter Office Visit Jackie Mccloud MD [facility] Cardiology examinationFamily history of CAD male [...] Block oxygen saturation, oximetry 98 % Vee [facility] height E&M 59.5 [in_i] Vee Block weight E&M 76 [lb_av] Vee [facility] respiratory rate E&M 16 /min [facility] ALLERGIES No Known Drug Allergies HISTORY OF [...] pack/day 1 Vee Block cigarette use yes [facility] smoking status Current every day smoker [facility] FAMILY HISTORY Family Member Condition Mother Family History Unkno wn Father Family History of Co ngestive Heart Failure: Father Family History of Hy pertension: Father Family History of Co ngestive Heart Failure: INSURANCE PROVIDERS Payer name Policy type / Coverage type [place] [employer] [place] [employer] Medicaid [id number] ADVANCE DIRECTIVES Name Date DISCUSSED - NO [...] and history of asthma, will check PFTs. Micheal Ratliff Cardiology:Chest karie n, shortness of breath, fatigue and family history of CAD. Will check echocardiogram and stress test. Michael Ratliff Date Name DLCO - 88757 FRC - 55671 FVC - 70185 Stress Routine Complete Echo HISTORY OF PROCEDURES Procedure Date Procedure Name Provider Procedure Notes S tatus FVC / MVV - 47766 Jackie Mccloud MD completed FRC - 78353 Jackie Mccloud MD comple orestes SpO2 w/o 6min walk/titration Jackie Mccloud MD completed DLCO - 28416 Jackie Mccloud MD compl eted Stress EKG Jackie Mccloud MD complet ed EKG Jackie Mccloud MD complet ed
--- OUTSIDE RECORDS SUMMARY | 2024-11-25 12:19 | XMS_ITS | Clinical Summary ---
Author Organization [facility] Address [facility] [place] [address] [place] [phone] Phone Care Team Providers Care Renal Case Manager Name Role Phone Maura Willis APRN, BETTY [...] Comments Blood Pressure 106/50 07/24/2024 5:44 PM BEAM DOFFER Pulse 85 07/24/2024 5:44 PM BEAM DOFFER Temperature 37.3 C (99.2 F) 07/24/2024 3:12 PM BEAM DOFFER Respiratory Rate 18 07/24/2024 5:44 PM BEAM DOFFER Oxygen Saturation 98% 07/24/2024 5:44 PM BEAM DOFFER Inhaled Oxygen Concentration - - Weight 63.3 kg (139 lb 8.8 oz) 07/24/2024 3:12 P M BEAM DOFFER Height 151.1 cm (4' 11.5 ) 07/24/2024 3:12 PM CS T Body Mass Index 27.71 07/24/2024 3:12 PM BEAM DOFFER Plan of Treatment Health Maintenance Due Date [...] this topic Insurance MEDICAID [place] Care Teams Renal Case Manager Relationship Specialty Start Date End Date Maura Willis, MATERIAL FLOW ENGINEER, PROCEDURE MANAGER [id number] , [address] [address] PCP - General Certified Nurse Practitioner 07/26/24
--- OUTSIDE RECORDS SUMMARY | 2024-11-25 12:19 | XMS_ITS | Clinical Summary ---
Author Organization [facility] Address [address] [place] [address] Care Team Providers Care Master Coastal Waters Name Role Phone Maura Willis NP Primary Care Provider [phone] Allergies Active Allergy Reactions Criticality Noted Date Comments Promethazine Angioedema High 10/27/2021 Venom-Honey Bee Swelling Medium 04/11/2019 Medications vit 48-facp-jouah-d villalta 27mg iron- 800 mcg-250 mg capsule [...] She is being referred to Dr. Gallego, assembly instructions writer, for more extensive evaluation Palpitations 11/05/2023 Assessment [...] (12/11/2020): Added automatically from request for surgery [id number] Family history of ischemic h eart disease [...] monitor. Assessment & Plan (06/26/2021 5:17 PM PUBLIC HEALTH OUTREACH WORKER): Not well controlled, patient continues to have [...] Unable to regain weight. H Pylori at [address] [place] [address] Recently cbc,cmp[,TSH, TTG, stool studiea all neg. No D or clinical/lab indicatoion. Will egd Estimated Date of Delivery Comme nts Yes 11/28/2024 Date entered silke or to episode creation Encounters Date Type Department Care Team Description 08/31/2024 Telephone [facility] Medical [facility] Primary Care at [address] [place] [phone] Liza Barger 08/30/2024 7:05 AM PUBLIC HEALTH OUTREACH WORKER - 08/30/2024 9:49 AM PUBLIC HEALTH OUTREACH WORKER Emergency [facility] Emergency Department [address] [place] [id number] Oli Luo MD Shortness of breath (Primary Dx) Discharge Disposition: Discharge to home or self care 08/30/2024 4:20 AM PUBLIC HEALTH OUTREACH WORKER - 08/30/2024 6:51 AM PUBLIC HEALTH OUTREACH WORKER Hospital Encounter [facility] [address] [place] [address] Arlette Rojas MD Discharge Disposition: Discharge to home or self care 08/30/2024 4:00 AM PUBLIC HEALTH OUTREACH WORKER - 08/30/2024 11:59 PM PUBLIC HEALTH OUTREACH WORKER Hospital Encounter [facility]ANCE BILL[facility] Emergency, Room R Discharge Disposition: [...] often do you attend chur ch or voodoo services? More than 4 times per year 08/30/2024 Do you belong to any clubs o r organizations such as mormon groups, unions, fraternal or athletic groups, or [...] staff should administer the PHQ-9) 0 08/30/2024 [facility] [place] of Occupat ional [facility] - Occupational Stress Questionnaire Answer Date Recorded [...] any time in the past 12 m [facility], were you homeless or living in a mcc (including now)? No 08/30/2024 Personal Safety Answer [...] on file Legal Sex Female 7:49 PM PUBLIC HEALTH OUTREACH WORKER Gender Identity Not on file Sexual Orientation [...] Estimated Date of Delivery 08/23/2024 - Present (11/25/2024) 11/28/2024 (based on Alternate CASE Entry) Dating Summary Based On CASE GA Diff Last Menstrual Period on 02/18/2024 (Exact Date) 11/24/2024 +4d Alternate CASE Entry 11/28/2024 Working Comment:Date entered prior t o episode creation Vitals Pregravid Weight Height TWG (As of 11/25/2024) Pregrav id BMI 152.4 cm (5') Date GA Fund Present FHR Mvmt BP Weight Edema Alb Glu Ket Dil/ Eff/Sta 5 26w2d Inpatient data not displayed here. See encounter summary. 5 27w1d Inpatient data not displayed here. See encounter summary. Last Filed Vital Signs Vital Sign Reading Time Taken Comments Blood Pressure 105/66 08/30/2024 9:00 AM PUBLIC HEALTH OUTREACH WORKER Pulse 88 08/30/2024 9:00 AM PUBLIC HEALTH OUTREACH WORKER Temperature 36.7 C (98 F) 08/30/2024 7:07 AM PUBLIC HEALTH OUTREACH WORKER Respiratory Rate 14 08/30/2024 7:30 AM PUBLIC HEALTH OUTREACH WORKER Oxygen Saturation 99% 08/30/2024 9:00 AM PUBLIC HEALTH OUTREACH WORKER Inhaled Oxygen Concentration - - Weight 39.5 kg (87 lb) 08/30/2024 7:07 AM PUBLIC HEALTH OUTREACH WORKER Height 152.4 cm (5') 08/30/2024 4:34 AM PUBLIC HEALTH OUTREACH WORKER Body Mass Index 16.99 08/30/2024 4:34 AM PUBLIC HEALTH OUTREACH WORKER Plan of Treatment Health Maintenance Due [...] CHEST 1 VIEW ED 08/30/2024 8:48 AM PUBLIC HEALTH OUTREACH WORKER ECG 12-LEAD STAT 08/30/2024 7:28 AM PUBLIC HEALTH OUTREACH WORKER EGFR STAT 08/30/2024 7:11 AM PUBLIC HEALTH OUTREACH WORKER DIFFERENTIAL AUTO STAT 08/30/2024 7:1 1 AM PUBLIC HEALTH OUTREACH WORKER TROPONIN T HIGH-SENSITIVITY SERIES (BASELINE, 2HR, 4HR, 6HR) STAT 08/30/2024 7:11 AM PUBLIC HEALTH OUTREACH WORKER CBC WITH AUTO DIFFERENTIAL STAT 08/30/2024 7:11 AM PUBLIC HEALTH OUTREACH WORKER COMPREHENSIVE METABOLIC PANEL STAT 08/30/2024 7:11 AM PUBLIC HEALTH OUTREACH WORKER INFLUENZA A/B, RSV, AND COVID-19 PCR Routine 08/30/2024 5:28 AM PUBLIC HEALTH OUTREACH WORKER URINALYSIS AND REFLEX TO MICROSCOPIC AND CULTURE STAT 08/30/2024 5:28 AM PUBLIC HEALTH OUTREACH WORKER GENITAL FLUID PAP SMEAR, THIN PREP AND HPV Routine 10/24/2020 from Last 3 Months or Most Recently Relevant to Health Maintenance Results * XR Chest 1 Vw Portable (08/30/2024 8:48 AM PUBLIC HEALTH OUTREACH WORKER) Anatomical Region Laterality Modality Body, Chest N/A Computed Radiogr aphy 08/30/2024 8:50 AM PUBLIC HEALTH OUTREACH WORKER Narrative 08/30/2024 8:50 AM PUBLIC HEALTH OUTREACH WORKER EXAM DESCRIPTION: XR CHEST 1 VIEW REASON [...] Dakota Boyd M.D. JA: SOCORRO Report ID: [id number] Reading Location: [id number] Procedure Note Dakota Boyd MD - 08/30/2024 [...] Dakota Boyd M.D. JA: SOCORRO Report ID: [id number] Reading Location: [id number] Result [facility] us Oli Luo MD IMG XR PROCEDURES Final Result * ECG 12 lead (08/30/2024 7:28 AM PUBLIC HEALTH OUTREACH WORKER) 08/30/2024 7:28 AM PUBLIC HEALTH OUTREACH WORKER Narrative [facility] - 08/30/2024 8:47 AM PUBLIC HEALTH OUTREACH WORKER Vent Rate: 84 bpm RR Interval: 711 msec [place] Interval: 104 msec QRS Duration: 77 msec QT Interval: 377 msec QTC Interval: 418 msec P-R-T [place]: 40 - 66 - 45 degrees IMPRESSION: SINUS RHYTHM WITH SHORT [place] INTERVAL BORDERLINE ECG Compared to prior EKG heart rate decreased Electronically Signed By: Cisco Mckeon MD [facility] us Oli Luo MD ECG ORDERABLES Final Result Performing Organization Address City/State/[facility] [[email or web address]] Co de Phone Number [facility] * Troponin T high-sensitivity series (baseline, 2hr, 4hr, 6hr) (08/30/2024 7:11 AM PUBLIC HEALTH OUTREACH WORKER) Trop T hs <6 <=14 ng/L Comment: Interpretive Data For further hscTnT resources including the diagnostic algorithm and an aid in interpretation, copy and paste this link: https://nrl.testcatalog.org/show/hsTrop Current Interpretive Data last revised 2020. Blood 08/30/2024 7:11 AM PUBLIC HEALTH OUTREACH WORKER 08/30/2024 7:19 AM PUBLIC HEALTH OUTREACH WORKER us Oli Luo MD LAB BLOOD ORDERABLES Final Res ult [facility] [place] ([place]) 1 [facility] Department [place] [address] * eGFR (08/30/2024 7:11 AM PUBLIC HEALTH OUTREACH WORKER) eGFR >90 >=60 mL/min/1. 73 m2 Comment: [...] last reviewed 2021. Blood 08/30/2024 7:11 AM PUBLIC HEALTH OUTREACH WORKER 08/30/2024 7:19 AM PUBLIC HEALTH OUTREACH WORKER us Oli Luo MD LAB BLOOD ORDERABLES Final Res ult Performing Organization Address City/[facility]/ZIP Co de Phone Number [facility] [place] ([place]) 1 [facility] Department [place] [address] * (ABNORMAL) Differential, auto (08/30/2024 7:11 AM PUBLIC HEALTH OUTREACH WORKER) Neutrophil abs 8.9(H) 1.5 - 6.5 K/cumm [...] revised on 2017. Monocyte pct 6.8 % [facility] ([place]) Comment: Interpretive Data Percent cell [...] revised on 2017. Blood 08/30/2024 7:11 AM PUBLIC HEALTH OUTREACH WORKER 08/30/2024 7:19 AM PUBLIC HEALTH OUTREACH WORKER us Oli Luo MD LAB BLOOD ORDERABLES Final Res ult [facility] [place] ([place]) 1 [facility] Department [place] [address] * (ABNORMAL) CBC with auto differential (08/30/2024 7:11 AM PUBLIC HEALTH OUTREACH WORKER) WBC 12.2(H) 3.8 - 9.9 K/cumm Hgb [...] [facility] ([place]) Blood 08/30/2024 7:11 AM PUBLIC HEALTH OUTREACH WORKER 08/30/2024 7:19 AM PUBLIC HEALTH OUTREACH WORKER us Oli Luo MD LAB BLOOD ORDERABLES Final Res ult [facility] 1 [facility] Department [place] [address] * (ABNORMAL) Comprehensive metabolic panel (08/30/2024 7:11 AM PUBLIC HEALTH OUTREACH WORKER) Sodium 135 135 - 145 mmol/L Potassium, [...] [facility] ([place]) Blood 08/30/2024 7:11 AM PUBLIC HEALTH OUTREACH WORKER 08/30/2024 7:19 AM PUBLIC HEALTH OUTREACH WORKER us Oli Luo MD LAB BLOOD ORDERABLES Final Res ult [facility] ([place] 1 [facility] Department [place] [address] * Influenza A/B, RSV, and COVID-19 PCR Nasopharyngeal (08/30/2024 5:28 AM PUBLIC HEALTH OUTREACH WORKER) COVID-19 RNA Negative Negative Influenza A RNA Negative Negative [facility] ([place]) Influenza B RNA Negative Negative [facility] ([place]) RSV RNA Negative Negative [facility] ([place]) Comment: Interpretive data: Testing performed by [facility]. This test is performed using the [employer] Xpert Xpress CoV-2/Flu/RSV plus assay. This is a multiplex, real- time reverse transcriptase PCR assay intended for the qualitative detection of nucleic acid from SARS-CoV-2, influenza A, influenza B, and respiratory syncytial virus. This assay has been cleared by the [place] Food and Drug administration. The performance characteristics have been verified by the [facility]. Results must be considered in the clinical context, and a negative result does not rule out infection. Interpretive Data last revised 2023 Nasopharyngeal 08/30/2024 5: 28 AM PUBLIC HEALTH OUTREACH WORKER 08/30/2024 5:35 AM PUBLIC HEALTH OUTREACH WORKER Narrative [facility] [place] ([place]) - 08/30/2024 6:14 AM PUBLIC HEALTH OUTREACH WORKER Is the Patient experiencing symptoms consistent with COVID?->Yes us Ruperto Elliott MD LAB MICROBIOLOGY - GEN ERAL ORDERABLES Final Result [facility] [place] ([place] 1 [facility] Department [place] [address] * Urinalysis reflex to microscopic and culture Urine, clean voided (08/30/2024 5:28 AM PUBLIC HEALTH OUTREACH WORKER) Color, ur Yellow Yellow Clarity, ur Clear Clear [facility] [place] ([place]) Specific gravity, ur 1.007 1.003 - [...] tendency for uric acid stone formation. Source: [facility] Current Interpretive Data was last revised on 2017 Protein, ur ql Negative Negative [facility] ([place]) Glucose, ur ql Negative Negative [facility] ([place]) Ketones, ur Negative Negative [facility] ([place]) Bilirubin, ur Negative Negative [facility] ([place]) Blood, ur Negative Negative [facility] ([place]) Urobilinogen, ur <2.0 <2.0 mg/dL [facility] ([place]) Nitrite, ur Negative Negative [facility] ([place]) Leukocyte esterase, ur Negative Negative [facility] ([place]) UA reflex comment Reflex conditions for microscopic UA and culture not met. [facility] ([place]) Urine, clean voided 08/30/2024 5:28 AM PUBLIC HEALTH OUTREACH WORKER 08/30/2024 5:35 AM PUBLIC HEALTH OUTREACH WORKER Ruperto Elliott MD LAB MICROBIOLOGY - GEN ERAL ORDERABLES Final Result [facility] ([place]) 1 [facility] Department [place] [address] * Genital fluid pap smear, thin prep and HPV (10/24/2020) 10/24/2020 [facility] Provider LAB CYTOLOGY ORDERABLES F inal Result from Last 3 Months or Most Recently Relevant to Health Maintenance Insurance [facility] Advance Directives For more information, please contact: [phone] * Full Code (Latest Code Status on [...] 9:28 AM 01/11/2021 9:28 AM Care Teams Master [place]al [place] Relationship Specialty Start Date End Date Maura Willis NP [address] [address] PCP - General Family Medicine 11/05/23
--- OUTSIDE RECORDS SUMMARY | 2024-11-25 12:19 | XMS_ITS | Referral Summary ---
Author Organization [facility] Address 1 [place] [address] Care Team Providers Care Product Coordinator Name Role Phone Maura Willis NP Primary Care Provider [phone] Encounters Date Type Department Care Team Description 08/31/2024 Telephone [facility] Medical Group Primary Care at [address] [place] [phone] Liza Barger 08/30/2024 4:00 AM ELECTRICAL WORKER - 08/30/2024 11:59 PM ELECTRICAL WORKER Hospital Encounter [facility] Emergency, Room R Discharge Disposition: Discharge to home or self care 08/30/2024 7:05 AM ELECTRICAL WORKER - 08/30/2024 9:49 AM ELECTRICAL WORKER Emergency [facility] Emergency Department 1 [place] [address] Oli Luo MD Shortness of breath (Primary Dx) Discharge Disposition: Discharge to home or self care 08/30/2024 4:20 AM ELECTRICAL WORKER - 08/30/2024 6:51 AM ELECTRICAL WORKER Hospital Encounter [facility] 1 [place] [address] Arlette Rojas MD Discharge Disposition: Discharge to home or self care from Last 3 Months Allergies Active Allergy Reactions Criticality Noted Date Comments Promethazine Angioedema High 10/27/2021 Venom-Honey Bee Swelling Medium 04/11/2019 Medications vit 00-utuv-tipah-d villalta 27mg iron- 800 mcg-250 mg capsule [...] She is being referred to Dr. Gallego, anodizer, for more extensive evaluation Palpitations 11/05/2023 Assessment [...] (12/11/2020): Added automatically from request for surgery [id number] Family history of ischemic h eart disease [...] monitor. Assessment & Plan (06/26/2021 5:17 PM ELECTRICAL WORKER): Not well controlled, patient continues to [...] Unable to regain weight. H Pylori at [address] [place] [address]. Recently cbc,cmp[,TSH, TTG, stool studiea all neg. [...] How often do you attend chur or pentecostal services? More than 4 times per year 08/30/2024 Do you belong to any clubs o r organizations such as judaism groups, unions, fraternal or athletic groups, or [...] staff should administer the PHQ-9) 0 08/30/2024 [facility] of Occupat ional Health - Occupational Stress [...] any time in the past 12 m [facility], were you homeless or living in a assisted (including now)? No 08/30/2024 Personal Safety Answer [...] on file Legal Sex Female 7:49 PM ELECTRICAL WORKER Gender Identity Not on file Sexual Orientation Not on file Last Filed Vital Signs Vital Sign Reading Time Taken Comments Blood Pressure 105/66 08/30/2024 9:00 AM ELECTRICAL WORKER Pulse 88 08/30/2024 9:00 AM ELECTRICAL WORKER Temperature 36.7 C (98 F) 08/30/2024 7:07 AM ELECTRICAL WORKER Respiratory Rate 14 08/30/2024 7:30 AM ELECTRICAL WORKER Oxygen Saturation 99% 08/30/2024 9:00 AM ELECTRICAL WORKER Inhaled Oxygen Concentration - - Weight 39.5 kg (87 lb) 08/30/2024 7:07 AM ELECTRICAL WORKER Height 152.4 cm (5') 08/30/2024 4:34 AM ELECTRICAL WORKER Body Mass Index 16.99 08/30/2024 4:34 AM ELECTRICAL WORKER Plan of Treatment Not on file Procedures Procedure Name Priority Date/Time Associated Diagnosis Comments XR CHEST 1 VIEW ED 08/30/2024 8:48 AM ELECTRICAL WORKER ECG 12-LEAD STAT 08/30/2024 7:28 AM ELECTRICAL WORKER EGFR STAT 08/30/2024 7:11 AM ELECTRICAL WORKER DIFFERENTIAL AUTO STAT 08/30/2024 7:1 1 AM ELECTRICAL WORKER TROPONIN T HIGH-SENSITIVITY SERIES (BASELINE, 2HR, 4HR, 6HR) STAT 08/30/2024 7:11 AM ELECTRICAL WORKER CBC WITH AUTO DIFFERENTIAL STAT 08/30/2024 7:11 AM ELECTRICAL WORKER COMPREHENSIVE METABOLIC PANEL STAT 08/30/2024 7:11 AM ELECTRICAL WORKER INFLUENZA A/B, RSV, AND COVID-19 PCR Routine 08/30/2024 5:28 AM ELECTRICAL WORKER URINALYSIS AND REFLEX TO MICROSCOPIC AND CULTURE STAT 08/30/2024 5:28 AM ELECTRICAL WORKER GENITAL FLUID PAP SMEAR, THIN PREP AND HPV Routine 10/24/2020 from Last 3 Months or Most Recently Relevant to Health Maintenance Results * XR Chest 1 Vw Portable (08/30/2024 8:48 AM ELECTRICAL WORKER) Anatomical Region Laterality Modality Body, Chest N/A Computed Radiogr aphy 08/30/2024 8:50 AM ELECTRICAL WORKER Narrative 08/30/2024 8:50 AM ELECTRICAL WORKER EXAM DESCRIPTION: XR CHEST 1 VIEW [...] signed by Dakota QUINTANILLA: SOC[place]RO Report ID: [id number] Reading Location: [id number] Procedure Note Dakota Boyd MD - 08/30/2024 [...] signed by Dakota QUINTANILLA: SOCORRO Report ID: [id number] Reading Location: [id number] Oli Luo MD IMG XR PROCEDURES Final Result * ECG 12 lead (08/30/2024 7:28 AM ELECTRICAL WORKER) 08/30/2024 7:28 AM ELECTRICAL WORKER Narrative [facility] - 08/30/2024 8:47 AM ELECTRICAL WORKER Vent Rate: 84 bpm RR Interval: 711 msec [place] Interval: 104 msec QRS Duration: 77 msec QT Interval: 377 msec QTC Interval: 418 msec P-R-T [place]: 40 - 66 - 45 degrees IMPRESSION: SINUS RHYTHM WITH SHORT [place] INTERVAL BORDERLINE ECG Compared to prior EKG heart rate decreased Electronically Signed By: Cisco Mckeon MD B Oli Luo MD ECG ORDERABLES Final Result Performing Organization Address City/[facility] Co de Phone Number [facility] * Troponin T high-sensitivity series (baseline, 2hr, 4hr, 6hr) (08/30/2024 7:11 AM ELECTRICAL WORKER) Trop T hs <6 <=14 ng/L Comment: Interpretive Data For further hscTnT resources including the diagnostic algorithm and an aid in interpretation, copy and paste this link: https://nrl.testcatalog.org/show/hsTrop Current Interpretive Data last revised 2020. Blood 08/30/2024 7:11 AM ELECTRICAL WORKER 08/30/2024 7:19 AM ELECTRICAL WORKER Oli Luo MD LAB BLOOD ORDERABLES Final Res ult Performing Organization Address City/[facility] Co de Phone Number [facility] [place]) 1 [facility] Department [place] [address] * eGFR (08/30/2024 7:11 AM ELECTRICAL WORKER) eGFR >90 >=60 mL/min/1. 73 m2 [...] last reviewed 2021. Blood 08/30/2024 7:11 AM ELECTRICAL WORKER 08/30/2024 7:19 AM ELECTRICAL WORKER us Oli Luo MD LAB BLOOD ORDERABLES Final Res ult [facility] ([place]) 1 [facility] Department [place] [address] * (ABNORMAL) Differential, auto (08/30/2024 7:11 AM ELECTRICAL WORKER) Neutrophil abs 8.9(H) 1.5 - 6.5 [...] revised on 2017. Blood 08/30/2024 7:11 AM ELECTRICAL WORKER 08/30/2024 7:19 AM ELECTRICAL WORKER Oli Luo MD LAB BLOOD ORDERABLES Final Res ult [facility] ([place]) 1 [facility] Department [place] [address] * (ABNORMAL) CBC with auto differential (08/30/2024 7:11 AM ELECTRICAL WORKER) WBC 12.2(H) 3.8 - 9.9 K/cumm [...] [facility] ([place]) Blood 08/30/2024 7:11 AM ELECTRICAL WORKER 08/30/2024 7:19 AM ELECTRICAL WORKER us Oli Luo MD LAB BLOOD ORDERABLES Final Res ult [facility] ([place]) 1 [facility] Department [place] [address] * (ABNORMAL) Comprehensive metabolic panel (08/30/2024 7:11 AM ELECTRICAL WORKER) Sodium 135 135 - 145 mmol/L [...] [facility] ([place]) Blood 08/30/2024 7:11 AM ELECTRICAL WORKER 08/30/2024 7:19 AM ELECTRICAL WORKER us Oli Luo MD LAB BLOOD ORDERABLES Final Res ult [facility] 1 [facility] Department [place] [address] * Influenza A/B, RSV, and COVID-19 PCR Nasopharyngeal (08/30/2024 5:28 AM ELECTRICAL WORKER) COVID-19 RNA Negative Negative Influenza A RNA Negative Negative [facility] ([place]) Influenza B RNA Negative Negative [facility] ([place]) RSV RNA Negative Negative [facility] ([place]) Comment: Interpretive data: Testing performed by [facility]. This test is performed using the [employer] Xpert Xpress CoV-2/Flu/RSV plus assay. This is [...] revised 2023 Nasopharyngeal 08/30/2024 5: 28 AM ELECTRICAL WORKER 08/30/2024 5:35 AM ELECTRICAL WORKER Narrative [facility] ([place]) - 08/30/2024 6:14 AM ELECTRICAL WORKER Is the Patient experiencing symptoms consistent with COVID?->Yes us Ruperto Elliott MD LAB MICROBIOLOGY - GEN ERAL ORDERABLES Final Result [facility] [place] ([place]) [address] [facility] [place] [address] * Urinalysis reflex to microscopic and culture Urine, clean voided (08/30/2024 5:28 AM ELECTRICAL WORKER) Color, ur Yellow Yellow Clarity, ur [...] tendency for uric acid stone formation. Source: [facility] Current Interpretive Data was last revised on [...] ([place]) Urine, clean voided 08/30/2024 5:28 AM ELECTRICAL WORKER 08/30/2024 5:35 AM ELECTRICAL WORKER Ruperto Elliott MD LAB MICROBIOLOGY - GEN ERAL ORDERABLES Final Result [facility] [place] ([place]) 1 [facility] Department [place] [address] * Genital fluid pap smear, thin prep and HPV (10/24/2020) 10/24/2020 us Historical Provider LAB CYTOLOGY ORDERABLES F inal Result from Last 3 Months or Most Recently Relevant to Health Maintenance Insurance [facility] Advance Directives For more information, please contact: [phone] * Full Code (Latest Code Status on [...] 9:28 AM 01/11/2021 9:28 AM Care Teams Product Coordinator Relationship Specialty Start Date End Date Maura Willis NP [address] [facility] [address] [place] [address] PCP - General Family Medicine 11/05/23
--- OUTSIDE RECORDS SUMMARY | 2024-11-25 12:19 | XMS_ITS | Clinical Summary ---
Author Organization [facility] [employer] Address [address] [place] [address] Care Team Providers Care Data Processing Mechanic Name Role Phone LazaroJuan de andalanie Armenta APRN-STREET ENGINEER Primary Care Provider + Taylor Dean DO Unavailable [phone] Source Comments [facility],non-owned Affiliates and Associated Physician Practices is amultiple site organization consisting of ambulatory clinics and hospital sitesin [place], [place], [place] and [place]. This disclosure is being madepursuant to the Care Everywhere program and may not contain all information available regarding this patient. Last updated 18.[facility] [employer] Allergies Active Allergy Reactions Criticality Noted Date [...] FU with dentist. Pt to FU with rn gynecology to discuss other control measures. Stop Soda. [...] Description 10/12/2024 12:30 PM CDT Office Visit [facility] [address] [place] [address] [address] [place] [address] Matty Franco APRN-BETTY Palpitations (Primary Dx); Hypokalemia 09/06/2024 12:32 PM LOAN OPERATIONS MANAGER - 09/06/2024 11:59 PM LOAN OPERATIONS MANAGER Hospital Encounter [facility] [address] [place] [address], [address] [place] [address] Taylor Dean, DO Discharge Disposition: Home or Self Care 08/31/2024 2:10 PM LOAN OPERATIONS MANAGER - 08/31/2024 11:59 PM LOAN OPERATIONS MANAGER Hospital Encounter [facility] [address] [place] [address] Taylor Dean, DO Discharge Disposition: Home or Self Care 08/31/2024 12:30 PM LOAN OPERATIONS MANAGER Office Visit [facility] [address] [place] [address] [address] [place] [address] Soni Sharma MD White, Stephanie M, DO RBBB (Primary Dx); Palpitations; Cardiac arrhythmia, unspecified cardiac arrhythmia type; 20 weeks gestation of 08/31/2024 9:00 AM LOAN OPERATIONS MANAGER Procedure visit [facility] [address] [place] [address] [address] [place] [address] Taylor Dean, DO Palpitations 08/31/2024 Orders Only [facility] Women's Health Maternal & Care [address] [place], [place] [id number] Yahaira Sanchez RN from Last 3 Months [...] on file Legal Sex Female 9:51 AM LOAN OPERATIONS MANAGER Gender Identity Not on file Sexual Orientation [...] CDT Respiratory Rate 20 08/16/2011 3:30 PM LOAN OPERATIONS MANAGER Oxygen Saturation 99% 10/12/2024 12:42 PM CDT Inhaled Oxygen Concentration - - Weight 41.7 kg (92 lb) 10/12/2024 12:42 PM CDT Height 152.4 cm (5') 09/06/2024 1:00 PM LOAN OPERATIONS MANAGER Body Mass Index 17.97 09/06/2024 1:00 PM LOAN OPERATIONS MANAGER Plan of Treatment Upcoming Encounters Date Type Department Care Team (Late st Contact Info) Description 01/11/2025 3:30 PM CDT Office Visit [facility] Health Heart & Vascular Care [address] [place] [address] [address] [place], [place] [id number] [place] [address] [place] [address] [address] [place], [place] [id number] Health Maintenance Due Date Last Done Comments [...] Palpitations ECHO COMPLETE Routine 09/06/2024 1:00 PM LOAN OPERATIONS MANAGER RBBB Palpitations TSH Routine 08/31/2024 2:35 PM LOAN OPERATIONS MANAGER Palpitations from Last 3 Months Results * MONITOR - HOLTER (09/27/2024 10:16 PM CDT) Narrative Mikey Weber MD - 09/27/2024 10:16 PM CDT Mikey Weber MD 09/27/2024 10:19 PM [facility] - Heart & Vascular - Holter Monitor Name: Amber Merlos : 1995 Primary Care Physician:Maura Willis APRN-STREET ENGINEER Referring Physician: Taylor Dean DO Clinical Indication: [...] there are any questions. Mikey Weber MD [facility] - Heart & Vascular Care Office us Taylor M Dianne DO CARDIAC SERVICES ORDERABLES Final Result * ECHO COMPLETE (09/06/2024 1:00 PM LOAN OPERATIONS MANAGER) IVSd 2D 0.569 cm [facility] CV FUJ [...] Laterality Modality Ultrasound 09/06/2024 12:5 9 PM LOAN OPERATIONS MANAGER Narrative 09/06/2024 4:56 PM LOAN OPERATIONS MANAGER Summary * The left ventricle is normal [...] 12:59 PM Patient Status: O/P Study Site: [facility] Primary Location: [facility] EStudy Info Technical Quality: Good Exam Type: ECHO COMPLETE Indications I45.10 - RBBB R00.2 - Palpitations Procedure(s) * A complete 2D, color Doppler, spectral Doppler, and M-Mode transthoracic echocardiogram was performed. Staff Referring Physician: Taylor Dean Ordering Provider: Taylor Dean Attending Physician: Taylor Dean Comp Field Case Manager: Yary Watson Left Ventricle The left ventricle [...] 12:59 PM Patient Status: O/P Study Site: [facility] Primary Location: [facility] EStudy Info Technical Quality: Good Exam Type: ECHO COMPLETE Indications I45.10 - RBBB R00.2 - Palpitations Procedure(s) * A complete 2D, color Doppler, spectral Doppler, and M-Modetransthoracic echocardiogram was performed. Staff Referring Physician: Taylor Dean Ordering Provider: Taylor Dean Attending Physician: Taylor Dean Comp Field Case Manager: Yary Watson Left Ventricle The left ventricle [...] Resul t * TSH (08/31/2024 2:35 PM LOAN OPERATIONS MANAGER) TSH 0.9813 0.35 - 4.94 uIU/mL 08/31/2024 3:32 PM LOAN OPERATIONS MANAGER [facility] Blood BLOOD SPECIMEN / Unknown Lab Venipuncture / Unknown 08/31/2024 2:35 PM LOAN OPERATIONS MANAGER 08/31/2024 2:45 PM LOAN OPERATIONS MANAGER us Taylor Dean DO LAB - CHEMISTRY ORDERABLES Final Result [facility] [address] [place] [address] from Last 3 Months Insurance Care Teams Data Processing Mechanic Relationship Specialty Start Date End Date Maura Willis, CUSTOM TAILOR-STREET ENGINEER [address] [place] [address] PCP - General Nurse Practitioner 08/31/24 Taylor Dean DO [address] [facility] [address] [address] [place] [address] Cardiovascular Disease 08/31/24
--- NOTE | 2024-11-25 13:10 | PC.NURSE ---
Dr. Weiner on unit and informed x-ray was negative. OK to discharge pt to home. Pt given instructions to continue taking the Motrin 600 mg by mouth every 6 hrs. May use heat or ice to area 15 mins at a time. Try to avoid excessive lifting. Informed if pain isn't starting to improve within a week to call office to see about physical therapy. Pt verbalizes understanding.
== END 2024-11-25 13:15 | disposition home or self-care (01) ==
LOC: ANHOBOP 12:16 → ANHOBPP 12:18
PROVIDERS: PCP Nurse Practitioner; Visit Provider Obstetrics & Gynecology
DX: O90.89 Other complications of the puerperium, not elsewhere classified (principal); R10.2 Pelvic and perineal pain; G89.18 Other acute postprocedural pain
CPT/HCPCS: 72170; 99199